=== PATIENT | female | born 1960 | race Hispanic/Latino ===

== ENCOUNTER 2021-01-18 12:09 | Inpatient (IN) | payer MEDICARE, OTHER ==
[~2021-01-18] VITALS: Ht 175.3 cm; Wt 158.8 kg
[2021-01-18] MEDS ORDERED: RENA-VITE RX T1 EACH PO (12:35)
[2021-01-18] MEDS ORDERED: LASIX40 MG PO (12:35)
[2021-01-18] MEDS ORDERED: METAMUCIL FIBE3.4 GM PO (12:35)
[2021-01-18] MEDS ORDERED: FERROUS SULFAT325 M1 PO (12:35)
[2021-01-18 13:38] LABS: BASOPHILS % 0.4 % (0.0-1.0); EOSINOPHILS # (AUTO) 0.1 (0.0-0.4); EOSINOPHILS % 2.3 % (0.0-6.0); HEMATOCRIT 27.8 % (34.2-44.1); HEMOGLOBIN 9.2 g/dL (12.0-16.0); LYMPHOCYTES # (AUTO) 0.6 (1.0-3.2); LYMPHOCYTES % 21.7 % (18.0-39.1); MEAN CORPUSCULAR HEMOGLOBIN 31.2 pg (28-32); MEAN CORPUSCULAR HGB CONC 33.1 g/dL (31-35); MEAN CORPUSCULAR VOLUME 94.2 fL (81-99); MONOCYTES # (AUTO) 0.2 (0.2-0.8); NEUTROPHILS # (AUTO) 1.8 (2.1-6.9); NEUTROPHILS % 68.2 % (38.7-80.0); PLATELET COUNT 104 x10e3/uL (140-360); RED BLOOD COUNT 2.95 x10e6/uL (3.6-5.1); RED CELL DISTRIBUTION WIDTH 14.4 % (11.7-14.4)
[2021-01-18 14:04] LABS: INR 0.95; PROTHROMBIN TIME 13.3 seconds (11.9-14.5)
[2021-01-18 14:05] LABS: PARTIAL THROMBOPLASTIN TIME 38.8 seconds (23.8-35.5)
[2021-01-18 14:12] LABS: ALBUMIN 2.7 g/dL (3.5-5.0); ALBUMIN/GLOBULIN RATIO 0.6 (0.8-2.0); ANION GAP 14.3 mmol/L (8-16); CALCIUM 7.4 mg/dL (8.4-10.2); CREATININE, SERUM 3.53 mg/dL (0.57-1.11); MAGNESIUM 2.2 MG/DL (1.3-2.1); POTASSIUM 4.3 mmol/L (3.5-5.1)
[2021-01-18] MEDS ORDERED: VANCOMYCIN 1GM/NS 250 ML 250 ML IV ONE (14:15)
[2021-01-18] MEDS ORDERED: PIPERACILLIN/TAZO 2.25 GM 50 ML IV SCH (14:15)
[2021-01-18 14:21] LABS: CREATINE KINASE MB 0.3 ng/mL (0-5.0)
[2021-01-18] MEDS ORDERED: SODIUM CHLORIDE 0.9% 500ML 500 ML IV ONE (14:30)
[2021-01-18] MEDS: PIPERACILLIN/TAZOBACTAM 2.25 GM in SODIUM CHLORIDE 0.9% 50ML 50 ML IV SCH ×2 (14:41→23:00)
[2021-01-18] MEDS ORDERED: ONDANSETRON HCL INJ 2MG/ML 2ML 2 MG/ML VIAL IV PRN ×2 (15:00→18:30)
[2021-01-18] MEDS ORDERED: DEXTROSE 50% SYRINGE 50 ML IV PRN (15:00)
[2021-01-18] MEDS ORDERED: MORPHINE SULFATE INJ 4 MG/ML INJ 1ML IV PRN (15:00)
[2021-01-18] MEDS: INSULIN LISPRO 100 UNIT/1 ML 3ML VIAL SQ SCH ×2 (16:56→21:00)
[2021-01-18] MEDS ORDERED: HYDRALAZINE HCL 20 MG/ML VIAL IV PRN (18:30)
[2021-01-18] MEDS ORDERED: ACETAMINOPHEN/CODEINE 300MG - 30MG TAB PO PRN (18:30)
[2021-01-18 22:00] VITALS: BP 128/66
[2021-01-18 22:51] VITALS: BP 128/66
[2021-01-18] MEDS: MELATONIN 5 MG TABLET PO SCH (23:00)
[2021-01-18] MEDS ORDERED: PIPERACILLIN/TAZOBACTAM SOD 2.25 GM VIAL ONE (23:33)
[2021-01-18] MEDS: ACETAMINOPHEN 325 MG TAB PO PRN (23:35)
[2021-01-18] MEDS ORDERED: SODIUM CHLORIDE 0.9% 100 ML ONE (23:35)
[2021-01-19] VITALS (9 sets, daily range): BP systolic 93–156; BP diastolic 38–57
[2021-01-19] MEDS: MELATONIN 5 MG TABLET PO SCH
[2021-01-19] MEDS: HEPARIN SOD (PORCINE) 5,000 UNIT/ML VIAL SC SCH
[2021-01-19] MEDS: PIPERACILLIN/TAZOBACTAM 2.25 GM in SODIUM CHLORIDE 0.9% 50ML 50 ML IV SCH ×2 (00:30→09:00)
[2021-01-19 05:45] LABS: ALBUMIN 2.5 g/dL (3.5-5.0); ALBUMIN/GLOBULIN RATIO 0.6 (0.8-2.0); ANION GAP 15.2 mmol/L (8-16); CALCIUM 7.3 mg/dL (8.4-10.2); CREATININE, SERUM 3.56 mg/dL (0.57-1.11); POTASSIUM 4.2 mmol/L (3.5-5.1)
[2021-01-19 06:55] LABS: BASOPHILS % 0.5 % (0.0-1.0); EOSINOPHILS # (AUTO) 0.1 (0.0-0.4); EOSINOPHILS % 2.5 % (0.0-6.0); HEMATOCRIT 25.8 % (34.2-44.1); HEMOGLOBIN 8.3 g/dL (12.0-16.0); LYMPHOCYTES # (AUTO) 0.5 (1.0-3.2); LYMPHOCYTES % 23.2 % (18.0-39.1); MEAN CORPUSCULAR HEMOGLOBIN 30.6 pg (28-32); MEAN CORPUSCULAR HGB CONC 32.2 g/dL (31-35); MEAN CORPUSCULAR VOLUME 95.2 fL (81-99); MONOCYTES # (AUTO) 0.1 (0.2-0.8); MONOCYTES % 6.9 % (4.4-11.3); NEUTROPHILS # (AUTO) 1.4 (2.1-6.9); NEUTROPHILS % 66.4 % (38.7-80.0); PLATELET COUNT 86 x10e3/uL (140-360); RED BLOOD COUNT 2.71 x10e6/uL (3.6-5.1); RED CELL DISTRIBUTION WIDTH 14.4 % (11.7-14.4)
[2021-01-19] MEDS: INSULIN LISPRO 100 UNIT/1 ML 3ML VIAL SQ SCH ×4 (07:30→21:00)
[2021-01-19 08:22] LABS: EOSINOPHILS % (MANUAL) 2 % (0-7); LYMPHOCYTES % (MANUAL) 21 % (19-48); MONOCYTES % (MANUAL) 8 % (3.4-9.0); MYELOCYTES % (MANUAL) 1 % (0-0); NEUTROPHILS % (MANUAL) 68 % (40-74)
[2021-01-19 08:23] LABS: OVALOCYTES FEW; PLATELET ESTIMATE SLIGHTLY DECREASED; PLATELET MORPHOLOGY COMMENT NORMAL; RBC MORPHOLOGY COMMENT NORMAL
[2021-01-19] MEDS: FUROSEMIDE 40 MG TAB PO SCH (09:00)
[2021-01-19] MEDS: POLYETHYLENE GLYCOL 3350 17 GM PACK PO SCH (09:00)
[2021-01-19] MEDS ORDERED: SODIUM HYPOCHLORITE 0.25% 480 ML SOLN IR ONE (10:15)
[2021-01-19] MEDS ORDERED: ALBUTEROL SULFATE HFA 8GM INHALATION AEROSOL INH PRN (18:00)
[2021-01-19] MEDS: ACETAMINOPHEN 325 MG TAB PO PRN (22:25)
[2021-01-20] VITALS (9 sets, daily range): BP systolic 92–125; BP diastolic 52–61
[2021-01-20] MEDS: ACETAMINOPHEN 325 MG TAB PO PRN ×3 (03:30→21:30)
[2021-01-20 04:46] LABS: BASOPHILS % 0.5 % (0.0-1.0); EOSINOPHILS # (AUTO) 0.1 (0.0-0.4); EOSINOPHILS % 3.2 % (0.0-6.0); HEMATOCRIT 25.8 % (34.2-44.1); HEMOGLOBIN 8.4 g/dL (12.0-16.0); LYMPHOCYTES # (AUTO) 0.4 (1.0-3.2); LYMPHOCYTES % 17.7 % (18.0-39.1); MEAN CORPUSCULAR HEMOGLOBIN 31.2 pg (28-32); MEAN CORPUSCULAR HGB CONC 32.6 g/dL (31-35); MEAN CORPUSCULAR VOLUME 95.9 fL (81-99); MONOCYTES # (AUTO) 0.2 (0.2-0.8); MONOCYTES % 9.1 % (4.4-11.3); NEUTROPHILS # (AUTO) 1.5 (2.1-6.9); PLATELET COUNT 94 x10e3/uL (140-360); RED BLOOD COUNT 2.69 x10e6/uL (3.6-5.1); RED CELL DISTRIBUTION WIDTH 14.6 % (11.7-14.4)
[2021-01-20 05:05] LABS: CALCIUM 7.3 mg/dL (8.4-10.2); CREATININE, SERUM 2.51 mg/dL (0.57-1.11)
[2021-01-20] MEDS: INSULIN LISPRO 100 UNIT/1 ML 3ML VIAL SQ SCH ×4 (07:30→20:24)
[2021-01-20] MEDS: CHOLECALCIFEROL 400 UNIT TAB PO SCH (08:40)
[2021-01-20] MEDS: ZINC SULFATE 220 MG CAP PO SCH (08:40)
[2021-01-20] MEDS: POLYETHYLENE GLYCOL 3350 17 GM PACK PO SCH (08:40)
[2021-01-20] MEDS: PIPERACILLIN/TAZOBACTAM 2.25 GM in SODIUM CHLORIDE 0.9% 50ML 50 ML IV SCH ×2 (08:40→20:23)
[2021-01-20] MEDS: FUROSEMIDE 40 MG TAB PO SCH (08:40)
[2021-01-20] MEDS: ASCORBIC ACID 500 MG TAB PO SCH ×2 (08:40→16:17)
[2021-01-20] MEDS: HEPARIN SOD (PORCINE) 5,000 UNIT/ML VIAL SC SCH ×2 (08:46→20:24)
[2021-01-20] MEDS ORDERED: BAMLANIVIMAB 700 MG/20 ML VIAL IV ONE (13:15)
[2021-01-20] MEDS ORDERED: ETESEVIMAB IV ONE (14:15)
[2021-01-20] MEDS ORDERED: SODIUM CHLORIDE 0.9% IV ONE (14:15)
[2021-01-20] MEDS ORDERED: BAMLANIVIMAB IV ONE (14:15)
[2021-01-20] MEDS: MELATONIN 5 MG TABLET PO SCH (20:24)
[2021-01-21 00:05] VITALS: BP 146/58
[2021-01-21] MEDS: ACETAMINOPHEN 325 MG TAB PO PRN (04:12)
[2021-01-21 04:13] VITALS: BP 125/55
[2021-01-21] MEDS ORDERED: MEROPENEM 500MG/ NS 50ML 50 ML IV SCH (06:45)
[2021-01-21] MEDS: INSULIN LISPRO 100 UNIT/1 ML 3ML VIAL SQ SCH ×3 (07:30→16:30)
[2021-01-21 08:00] VITALS: BP 132/77
[2021-01-21] MEDS ORDERED: CHOLESTYRAMINE 4 GM PACKET PO PRN (08:30)
[2021-01-21] MEDS ORDERED: CHOLESTYRAMINE 4 GM PACKET PO SCH (09:00)
[2021-01-21] MEDS: HEPARIN SOD (PORCINE) 5,000 UNIT/ML VIAL SC SCH (09:00)
[2021-01-21] MEDS: POLYETHYLENE GLYCOL 3350 17 GM PACK PO SCH (09:00)
[2021-01-21] MEDS ORDERED: FOLIC ACID/CYANOCOB/PYRIDOXINE TAB PO SCH (09:00)
[2021-01-21] MEDS ORDERED: SODIUM CHLORIDE 0.9% 250ML 500 ML IV PRN (09:45)
[2021-01-21] MEDS ORDERED: ALBUMIN 25% 12.5GM 0.25 GM/ML BTL IV PRN (09:45)
[2021-01-21] MEDS ORDERED: SODIUM CHLORIDE 0.9% 1000ML 2,000 ML IV PRN (09:45)
[2021-01-21 12:00] VITALS: BP 147/93
[2021-01-21] MEDS ORDERED: SODIUM CHLORIDE 0.9% 250ML 250 ML ONE (14:27)
[2021-01-21] MEDS ORDERED: LIDOCAINE HCL 1% LOCAL INJ 20 ML VIAL ONE (14:27)
[2021-01-21] MEDS: ZINC SULFATE 220 MG CAP PO SCH (14:39)
[2021-01-21] MEDS: CHOLECALCIFEROL 400 UNIT TAB PO SCH (14:39)
[2021-01-21] MEDS: FUROSEMIDE 40 MG TAB PO SCH (14:39)
[2021-01-21] MEDS ORDERED: MIDAZOLAM HCL 2 MG/2 ML VIAL ONE (15:14)
[2021-01-21] MEDS ORDERED: FENTANYL CITRATE/PF 100MCG/2 ML INJ ONE (15:14)
[2021-01-21 16:00] VITALS: BP 118/67
[2021-01-21] MEDS ORDERED: MEROPENEM 1GM 100 ML IV SCH ×2 (16:00→21:00)
[2021-01-22] MEDS ORDERED: ASCORBIC ACID 500 MG TAB PO SCH (09:00)
== END 2021-01-21 18:36 | disposition home health service (06) | DRG 622 ==
LOC: ER 12:28 → ERHOLD 14:58 → IMCU 22:00
PROVIDERS: ADMIT Internal Medicine; ATTEND Internal Medicine
PROC: 0JB90ZZ Excision of Buttock Subcutaneous Tissue and Fascia, Open Approach (ICD-10-PCS; principal; 2021-01-19)
PROC: 0JH63XZ Insertion of Tunneled Vascular Access Device into Chest Subcutaneous Tissue and Fascia, Percutaneous Approach (ICD-10-PCS; 2021-01-21)
PROC: 02HV33Z Insertion of Infusion Device into Superior Vena Cava, Percutaneous Approach (ICD-10-PCS; 2021-01-21)
DX: E11.69 Type 2 diabetes mellitus with other specified complication (principal); L89.314 Pressure ulcer of right buttock, stage 4; U07.1 COVID-19; J12.82 Pneumonia due to coronavirus disease 2019; Z68.43 Body mass index [BMI] 50.0-59.9, adult; I12.0 Hypertensive chronic kidney disease with stage 5 chronic kidney disease or end stage renal disease; D61.818 Other pancytopenia; K52.1 Toxic gastroenteritis and colitis; M86.8X7 Other osteomyelitis, ankle and foot; N18.6 End stage renal disease; E11.22 Type 2 diabetes mellitus with diabetic chronic kidney disease; E66.01 Morbid (severe) obesity due to excess calories; Z99.2 Dependence on renal dialysis; Z79.899 Other long term (current) drug therapy; D69.6 Thrombocytopenia, unspecified; T36.8X5A Adverse effect of other systemic antibiotics, initial encounter; I48.91 Unspecified atrial fibrillation; Z79.01 Long term (current) use of anticoagulants; G40.909 Epilepsy, unspecified, not intractable, without status epilepticus
CPT/HCPCS: 36415; 36558; 71045; 74470; 76937; 77001; 80048; 80053; 82550; 82553; 82948; 83605; 83735; 84484; 85025; 85610; 85730; 87040; 87071; 87186; 87205; 90962; 99251; 99285; J1644; J2001; J2250; J2543; J3010; J3370; J7030; J7040; J7050; U0002

== ENCOUNTER 2021-03-08 17:33 | Inpatient (IN) | payer MEDICARE, OTHER ==
[~2021-03-08] VITALS: Ht 175.3 cm; Wt 158.8 kg
[~2021-03-08 17:33] MED LIST: FERROUS SULFAT325 M1 PO; LASIX40 MG PO; METAMUCIL FIBE3.4 GM PO; RENA-VITE RX T1 EACH PO
[2021-03-08 18:07] LABS: BASOPHILS % 0.1 % (0.0-1.0); EOSINOPHILS % 0.4 % (0.0-6.0); HEMATOCRIT 27.8 % (34.2-44.1); HEMOGLOBIN 9.1 g/dL (12.0-16.0); LYMPHOCYTES # (AUTO) 0.4 (1.0-3.2); MEAN CORPUSCULAR HEMOGLOBIN 32.3 pg (28-32); MEAN CORPUSCULAR HGB CONC 32.7 g/dL (31-35); MEAN CORPUSCULAR VOLUME 98.6 fL (81-99); MONOCYTES # (AUTO) 0.3 (0.2-0.8); MONOCYTES % 4.5 % (4.4-11.3); NEUTROPHILS # (AUTO) 6.6 (2.1-6.9); NEUTROPHILS % 89.7 % (38.7-80.0); PLATELET COUNT 100 x10e3/uL (140-360); RED BLOOD COUNT 2.82 x10e6/uL (3.6-5.1); RED CELL DISTRIBUTION WIDTH 16.2 % (11.7-14.4)
[2021-03-08 18:13] LABS: CLARITY,URINE SL CLOUDY (CLEAR); COLOR,URINE BROWN (YELLOW); KETONES,URINE TRACE (NEGATIVE); LEUKOCYTE ESTERASE ,URINE NEGATIVE (NEGATIVE); NITRITE,URINE NEGATIVE (NEGATIVE); PROTEIN,URINE DIPSTICK >=300 (NEGATIVE); URINE UROBILINOGEN 1 mg/dL (0.2 - 1)
[2021-03-08 18:24] LABS: ALBUMIN/GLOBULIN RATIO 0.7 (0.8-2.0); ANION GAP 14.5 mmol/L (8-16); CALCIUM 8.4 mg/dL (8.4-10.2); CREATININE, SERUM 3.44 mg/dL (0.57-1.11); POTASSIUM 3.5 mmol/L (3.5-5.1)
[2021-03-08 18:27] LABS: BACTERIA,URINE MANY /HPF; EPITHELIAL CELLS,URINE MANY /LPF; WBC,URINE (MAN) 0-5 /HPF (0-5)
[2021-03-08] MEDS ORDERED: VANCOMYCIN 1GM/NS 250 ML 250 ML IV ONE (18:30)
[2021-03-08] MEDS: PIPERACILLIN/TAZOBACTAM 2.25 GM in SODIUM CHLORIDE 0.9% 50ML 50 ML IV SCH (19:15)
[2021-03-08] MEDS ORDERED: DEXTROSE 50% SYRINGE 50 ML IV PRN (20:00)
[2021-03-08] MEDS ORDERED: MORPHINE SULFATE INJ 2 MG/ML SYR IV PRN (20:00)
[2021-03-08] MEDS ORDERED: SODIUM CHLORIDE FLUSH 10 ML SYR INJ PRN (20:00)
[2021-03-08] MEDS ORDERED: ACETAMINOPHEN 325 MG TAB PO PRN ×2 (20:00)
[2021-03-08] MEDS: INSULIN REGULAR, HUMAN 100 UNIT/1 ML 3ML VIAL SQ SCH (21:00)
[2021-03-08 21:44] VITALS: BP 139/72
[2021-03-08 22:18] VITALS: BP 139/72
[2021-03-08] MEDS ORDERED: LANTUS 3ML100 UNITS/ SC (22:32)
[2021-03-08] MEDS ORDERED: LEVEMIR FL100 UNIT/1 SC (22:32)
[2021-03-08] MEDS ORDERED: CARVEDILOL25 MG (22:32)
[2021-03-08 22:33] VITALS: BP 139/72
[2021-03-09] VITALS (7 sets, daily range): BP systolic 110–134; BP diastolic 48–71
[2021-03-09 04:13] LABS: BASOPHILS % 0.3 % (0.0-1.0); EOSINOPHILS % 0.3 % (0.0-6.0); HEMATOCRIT 25.6 % (34.2-44.1); HEMOGLOBIN 8.5 g/dL (12.0-16.0); LYMPHOCYTES # (AUTO) 0.4 (1.0-3.2); LYMPHOCYTES % 6.8 % (18.0-39.1); MEAN CORPUSCULAR HEMOGLOBIN 32.4 pg (28-32); MEAN CORPUSCULAR HGB CONC 33.2 g/dL (31-35); MEAN CORPUSCULAR VOLUME 97.7 fL (81-99); MONOCYTES # (AUTO) 0.3 (0.2-0.8); MONOCYTES % 4.8 % (4.4-11.3); NEUTROPHILS # (AUTO) 5.1 (2.1-6.9); NEUTROPHILS % 87.3 % (38.7-80.0); PLATELET COUNT 86 x10e3/uL (140-360); RED BLOOD COUNT 2.62 x10e6/uL (3.6-5.1); RED CELL DISTRIBUTION WIDTH 16.2 % (11.7-14.4)
[2021-03-09 04:32] LABS: ALBUMIN 2.7 g/dL (3.5-5.0); ALBUMIN/GLOBULIN RATIO 0.7 (0.8-2.0); ANION GAP 16.5 mmol/L (8-16); CALCIUM 8.4 mg/dL (8.4-10.2); CREATININE, SERUM 3.52 mg/dL (0.57-1.11); POTASSIUM 3.5 mmol/L (3.5-5.1)
[2021-03-09] MEDS: PIPERACILLIN/TAZOBACTAM 2.25 GM in SODIUM CHLORIDE 0.9% 50ML 50 ML IV SCH ×2 (06:30→17:44)
[2021-03-09] MEDS ORDERED: SODIUM CHLORIDE 0.9% 250ML 250 ML ONE (06:30)
[2021-03-09] MEDS: INSULIN REGULAR, HUMAN 100 UNIT/1 ML 3ML VIAL SQ SCH ×4 (08:45→21:00)
[2021-03-09] MEDS ORDERED: SODIUM CHLORIDE 0.9% 1000ML 2,000 ML ONE (10:18)
[2021-03-09] MEDS ORDERED: ALBUMIN 25% 12.5GM 0.25 GM/ML BTL IV PRN (11:15)
[2021-03-09] MEDS ORDERED: SODIUM CHLORIDE 0.9% 250ML 500 ML IV PRN (11:15)
[2021-03-09] MEDS ORDERED: SODIUM CHLORIDE 0.9% 1000ML 2,000 ML IV PRN (11:15)
[2021-03-09] MEDS: SEVELAMER CARBONATE 800 MG TAB PO SCH ×2 (12:00→17:37)
[2021-03-09] MEDS: MORPHINE SULFATE INJ 4 MG/ML INJ 1ML IV PRN (13:10)
[2021-03-09] MEDS ORDERED: HYDRALAZINE HCL 20 MG/ML VIAL IV PRN (17:30)
[2021-03-10] VITALS (7 sets, daily range): BP systolic 106–134; BP diastolic 50–67
[2021-03-10] MEDS: PIPERACILLIN/TAZOBACTAM 2.25 GM in SODIUM CHLORIDE 0.9% 50ML 50 ML IV SCH ×2 (06:30→17:50)
[2021-03-10] MEDS: INSULIN REGULAR, HUMAN 100 UNIT/1 ML 3ML VIAL SQ SCH ×4 (07:30→21:00)
[2021-03-10] MEDS: FERROUS SULFATE 325 MG TAB PO SCH (08:42)
[2021-03-10] MEDS: SEVELAMER CARBONATE 800 MG TAB PO SCH ×3 (08:42→17:02)
[2021-03-10] MEDS: PSYLLIUM 6GM PACKET PO SCH (08:45)
[2021-03-10] MEDS: FAMOTIDINE 20 MG/2 ML VIAL IV SCH ×2 (08:52→17:50)
[2021-03-10] MEDS: MORPHINE SULFATE INJ 4 MG/ML INJ 1ML IV PRN (12:55)
[2021-03-10] MEDS ORDERED: SODIUM HYPOCHLORITE 0.25% 480 ML SOLN IR ONE (18:15)
[2021-03-11] VITALS (8 sets, daily range): BP systolic 121–147; BP diastolic 49–70
[2021-03-11] MEDS: MORPHINE SULFATE INJ 4 MG/ML INJ 1ML IV PRN ×2 (00:30→17:17)
[2021-03-11] MEDS: PIPERACILLIN/TAZOBACTAM 2.25 GM in SODIUM CHLORIDE 0.9% 50ML 50 ML IV SCH ×2 (06:32→18:30)
[2021-03-11] MEDS: INSULIN REGULAR, HUMAN 100 UNIT/1 ML 3ML VIAL SQ SCH ×5 (07:30→21:00)
[2021-03-11] MEDS: SEVELAMER CARBONATE 800 MG TAB PO SCH ×3 (08:00→16:44)
[2021-03-11] MEDS: PSYLLIUM 6GM PACKET PO SCH (09:00)
[2021-03-11] MEDS: COLLAGENASE OINTMENT 30 GM TUBE TP SCH (09:00)
[2021-03-11] MEDS: FAMOTIDINE 20 MG/2 ML VIAL IV SCH ×2 (09:00→16:44)
[2021-03-11] MEDS: FERROUS SULFATE 325 MG TAB PO SCH (09:00)
[2021-03-11] MEDS: ACETAMINOPHEN 325 MG TAB PO PRN (17:17)
[2021-03-12] VITALS (8 sets, daily range): BP systolic 104–144; BP diastolic 45–70
[2021-03-12] MEDS: MORPHINE SULFATE INJ 4 MG/ML INJ 1ML IV PRN ×3 (00:26→22:12)
[2021-03-12 05:38] LABS: BASOPHILS % 0.7 % (0.0-1.0); EOSINOPHILS # (AUTO) 0.2 (0.0-0.4); HEMATOCRIT 24.6 % (34.2-44.1); LYMPHOCYTES # (AUTO) 0.8 (1.0-3.2); LYMPHOCYTES % 13.1 % (18.0-39.1); MEAN CORPUSCULAR HEMOGLOBIN 31.9 pg (28-32); MEAN CORPUSCULAR HGB CONC 32.5 g/dL (31-35); MONOCYTES # (AUTO) 0.6 (0.2-0.8); MONOCYTES % 10.1 % (4.4-11.3); NEUTROPHILS % 70.4 % (38.7-80.0); PLATELET COUNT 118 x10e3/uL (140-360); RED BLOOD COUNT 2.51 x10e6/uL (3.6-5.1); RED CELL DISTRIBUTION WIDTH 15.9 % (11.7-14.4)
[2021-03-12 06:29] LABS: ALBUMIN 2.2 g/dL (3.5-5.0); ALBUMIN/GLOBULIN RATIO 0.5 (0.8-2.0); ANION GAP 15.6 mmol/L (8-16); CALCIUM 7.7 mg/dL (8.4-10.2); CREATININE, SERUM 3.77 mg/dL (0.57-1.11); PHOSPHORUS 3.5 MG/DL (2.3-4.7); POTASSIUM 3.6 mmol/L (3.5-5.1)
[2021-03-12] MEDS: PIPERACILLIN/TAZOBACTAM 2.25 GM in SODIUM CHLORIDE 0.9% 50ML 50 ML IV SCH ×2 (06:32→17:23)
[2021-03-12 06:52] LABS: THYROID STIMULATING HORMONE 2.319 uIU/mL (0.350-4.940)
[2021-03-12] MEDS: INSULIN REGULAR, HUMAN 100 UNIT/1 ML 3ML VIAL SQ SCH ×4 (07:30→21:00)
[2021-03-12] MEDS: SEVELAMER CARBONATE 800 MG TAB PO SCH ×3 (08:00→16:52)
[2021-03-12] MEDS: FERROUS SULFATE 325 MG TAB PO SCH (08:53)
[2021-03-12] MEDS: PSYLLIUM 6GM PACKET PO SCH (08:53)
[2021-03-12] MEDS: FAMOTIDINE 20 MG/2 ML VIAL IV SCH ×2 (08:53→16:52)
[2021-03-12] MEDS: SODIUM HYPOCHLORITE 0.25% 480 ML SOLN TOP SCH (09:00)
[2021-03-12] MEDS: COLLAGENASE OINTMENT 30 GM TUBE TP SCH (09:00)
[2021-03-12] MEDS: ONDANSETRON HCL INJ 2MG/ML 2ML 2 MG/ML VIAL IV PRN (22:12)
[2021-03-13] VITALS (8 sets, daily range): BP systolic 101–137; BP diastolic 54–61
[2021-03-13] MEDS: PIPERACILLIN/TAZOBACTAM 2.25 GM in SODIUM CHLORIDE 0.9% 50ML 50 ML IV SCH ×2 (05:22→17:14)
[2021-03-13] MEDS: INSULIN REGULAR, HUMAN 100 UNIT/1 ML 3ML VIAL SQ SCH ×4 (08:22→21:00)
[2021-03-13] MEDS: PSYLLIUM 6GM PACKET PO SCH (09:00)
[2021-03-13] MEDS: MORPHINE SULFATE INJ 4 MG/ML INJ 1ML IV PRN ×2 (09:30→22:25)
[2021-03-13] MEDS: FAMOTIDINE 20 MG/2 ML VIAL IV SCH ×2 (09:30→17:11)
[2021-03-13] MEDS: ONDANSETRON HCL INJ 2MG/ML 2ML 2 MG/ML VIAL IV PRN (09:30)
[2021-03-13] MEDS: SODIUM HYPOCHLORITE 0.25% 480 ML SOLN TOP SCH (09:41)
[2021-03-13] MEDS: COLLAGENASE OINTMENT 30 GM TUBE TP SCH (09:41)
[2021-03-13] MEDS: FERROUS SULFATE 325 MG TAB PO SCH (09:46)
[2021-03-13] MEDS: SEVELAMER CARBONATE 800 MG TAB PO SCH ×3 (09:46→17:14)
[2021-03-14] VITALS (9 sets, daily range): BP systolic 97–128; BP diastolic 44–71
[2021-03-14] MEDS: PIPERACILLIN/TAZOBACTAM 2.25 GM in SODIUM CHLORIDE 0.9% 50ML 50 ML IV SCH ×2 (06:10→17:19)
[2021-03-14] MEDS: INSULIN REGULAR, HUMAN 100 UNIT/1 ML 3ML VIAL SQ SCH ×4 (07:30→21:00)
[2021-03-14] MEDS: PSYLLIUM 6GM PACKET PO SCH (08:58)
[2021-03-14] MEDS: FAMOTIDINE 20 MG/2 ML VIAL IV SCH ×2 (09:02→17:19)
[2021-03-14] MEDS: SODIUM HYPOCHLORITE 0.25% 480 ML SOLN TOP SCH (09:10)
[2021-03-14] MEDS: FERROUS SULFATE 325 MG TAB PO SCH (09:10)
[2021-03-14] MEDS: SEVELAMER CARBONATE 800 MG TAB PO SCH ×3 (09:10→17:19)
[2021-03-14] MEDS: COLLAGENASE OINTMENT 30 GM TUBE TP SCH (09:10)
[2021-03-14] MEDS: MORPHINE SULFATE INJ 4 MG/ML INJ 1ML IV PRN (17:28)
[2021-03-15] VITALS (9 sets, daily range): BP systolic 108–124; BP diastolic 54–75
[2021-03-15 05:30] LABS: BASOPHILS % 0.6 % (0.0-1.0); EOSINOPHILS # (AUTO) 0.2 (0.0-0.4); EOSINOPHILS % 3.2 % (0.0-6.0); HEMATOCRIT 26.4 % (34.2-44.1); HEMOGLOBIN 8.5 g/dL (12.0-16.0); LYMPHOCYTES # (AUTO) 0.8 (1.0-3.2); LYMPHOCYTES % 15.7 % (18.0-39.1); MEAN CORPUSCULAR HEMOGLOBIN 31.4 pg (28-32); MEAN CORPUSCULAR HGB CONC 32.2 g/dL (31-35); MEAN CORPUSCULAR VOLUME 97.4 fL (81-99); MONOCYTES # (AUTO) 0.5 (0.2-0.8); MONOCYTES % 9.4 % (4.4-11.3); NEUTROPHILS # (AUTO) 3.5 (2.1-6.9); NEUTROPHILS % 70.3 % (38.7-80.0); PLATELET COUNT 158 x10e3/uL (140-360); RED BLOOD COUNT 2.71 x10e6/uL (3.6-5.1); RED CELL DISTRIBUTION WIDTH 16.1 % (11.7-14.4)
[2021-03-15] MEDS: PIPERACILLIN/TAZOBACTAM 2.25 GM in SODIUM CHLORIDE 0.9% 50ML 50 ML IV SCH ×2 (05:54→16:41)
[2021-03-15 06:01] LABS: ANION GAP 17.2 mmol/L (8-16); CALCIUM 7.9 mg/dL (8.4-10.2); CREATININE, SERUM 5.24 mg/dL (0.57-1.11); POTASSIUM 4.2 mmol/L (3.5-5.1)
[2021-03-15] MEDS: INSULIN REGULAR, HUMAN 100 UNIT/1 ML 3ML VIAL SQ SCH ×4 (07:30→21:00)
[2021-03-15] MEDS: FAMOTIDINE 20 MG/2 ML VIAL IV SCH ×2 (08:31→16:40)
[2021-03-15] MEDS: PSYLLIUM 6GM PACKET PO SCH (08:31)
[2021-03-15] MEDS: FERROUS SULFATE 325 MG TAB PO SCH (08:31)
[2021-03-15] MEDS: SEVELAMER CARBONATE 800 MG TAB PO SCH ×3 (08:31→16:40)
[2021-03-15] MEDS ORDERED: EPOETIN ALFA-EPBX 10,000 UNIT/ML VIAL SC ONE (09:00)
[2021-03-15] MEDS: MORPHINE SULFATE INJ 4 MG/ML INJ 1ML IV PRN ×2 (10:25→16:35)
[2021-03-15] MEDS: COLLAGENASE OINTMENT 30 GM TUBE TP SCH (15:38)
[2021-03-15] MEDS: SODIUM HYPOCHLORITE 0.25% 480 ML SOLN TOP SCH (15:38)
[2021-03-15] MEDS ORDERED: SODIUM CHLORIDE 0.9% 250ML 250 ML ONE (15:45)
[2021-03-16] VITALS (7 sets, daily range): BP systolic 105–132; BP diastolic 54–68
[2021-03-16] MEDS: PIPERACILLIN/TAZOBACTAM 2.25 GM in SODIUM CHLORIDE 0.9% 50ML 50 ML IV SCH ×2 (06:24→18:21)
[2021-03-16] MEDS: INSULIN REGULAR, HUMAN 100 UNIT/1 ML 3ML VIAL SQ SCH ×4 (07:30→21:00)
[2021-03-16] MEDS: FERROUS SULFATE 325 MG TAB PO SCH ×2 (08:48→08:58)
[2021-03-16] MEDS: COLLAGENASE OINTMENT 30 GM TUBE TP SCH (08:48)
[2021-03-16] MEDS: SEVELAMER CARBONATE 800 MG TAB PO SCH ×3 (08:48→17:00)
[2021-03-16] MEDS: PSYLLIUM 6GM PACKET PO SCH (08:48)
[2021-03-16] MEDS: SODIUM HYPOCHLORITE 0.25% 480 ML SOLN TOP SCH (08:48)
[2021-03-16] MEDS: FAMOTIDINE 20 MG/2 ML VIAL IV SCH ×2 (08:48→17:00)
[2021-03-16 09:31] LABS: BASOPHILS % 0.8 % (0.0-1.0); EOSINOPHILS # (AUTO) 0.2 (0.0-0.4); EOSINOPHILS % 3.1 % (0.0-6.0); HEMATOCRIT 30.7 % (34.2-44.1); HEMOGLOBIN 9.5 g/dL (12.0-16.0); LYMPHOCYTES # (AUTO) 0.8 (1.0-3.2); LYMPHOCYTES % 15.9 % (18.0-39.1); MEAN CORPUSCULAR HEMOGLOBIN 31.4 pg (28-32); MEAN CORPUSCULAR HGB CONC 30.9 g/dL (31-35); MEAN CORPUSCULAR VOLUME 101.3 fL (81-99); MONOCYTES # (AUTO) 0.4 (0.2-0.8); NEUTROPHILS # (AUTO) 3.4 (2.1-6.9); NEUTROPHILS % 70.8 % (38.7-80.0); PLATELET COUNT 169 x10e3/uL (140-360); RED BLOOD COUNT 3.03 x10e6/uL (3.6-5.1); RED CELL DISTRIBUTION WIDTH 16.3 % (11.7-14.4)
[2021-03-16 09:59] LABS: ANION GAP 20.4 mmol/L (8-16); CALCIUM 8.4 mg/dL (8.4-10.2); CREATININE, SERUM 6.37 mg/dL (0.57-1.11); POTASSIUM 4.4 mmol/L (3.5-5.1)
[2021-03-16] MEDS ORDERED: EPOETIN ALFA-EPBX 10,000 UNIT/ML VIAL SC ONE (10:30)
[2021-03-16] MEDS ORDERED: EPOETIN ALFA-EPBX 10,000 UNIT/ML VIAL SC SCH ×2 (10:30→11:15)
[2021-03-16] MEDS: ACETAMINOPHEN 325 MG TAB PO PRN (15:19)
[2021-03-17 00:55] VITALS: BP 154/73
[2021-03-17 04:51] VITALS: BP 157/73
[2021-03-17] MEDS: PIPERACILLIN/TAZOBACTAM 2.25 GM in SODIUM CHLORIDE 0.9% 50ML 50 ML IV SCH ×2 (06:38→17:52)
[2021-03-17] MEDS: INSULIN REGULAR, HUMAN 100 UNIT/1 ML 3ML VIAL SQ SCH ×3 (07:30→16:30)
[2021-03-17 08:02] VITALS: BP 126/69
[2021-03-17 08:32] VITALS: BP 126/69
[2021-03-17] MEDS: FAMOTIDINE 20 MG/2 ML VIAL IV SCH ×2 (09:02→16:49)
[2021-03-17] MEDS: SEVELAMER CARBONATE 800 MG TAB PO SCH ×3 (09:02→16:49)
[2021-03-17] MEDS: COLLAGENASE OINTMENT 30 GM TUBE TP SCH (09:02)
[2021-03-17] MEDS: PSYLLIUM 6GM PACKET PO SCH (09:02)
[2021-03-17] MEDS: SODIUM HYPOCHLORITE 0.25% 480 ML SOLN TOP SCH (09:02)
[2021-03-17] MEDS: FERROUS SULFATE 325 MG TAB PO SCH (09:02)
[2021-03-17] MEDS: SENNA-S TABLET PO SCH ×2 (10:50→16:49)
[2021-03-17 12:00] VITALS: BP 129/70
[2021-03-17] MEDS: ACETAMINOPHEN 325 MG TAB PO PRN (12:04)
[2021-03-17 16:00] VITALS: BP 139/56
[2021-03-17] MEDS ORDERED: RENVELA800 MG PO (17:37)
[2021-03-17] MEDS ORDERED: TYLENOL # 31 EA PO (18:01)
[2021-03-17] MEDS ORDERED: DOXYCYCLINE HY100 MG PO (18:02)
== END 2021-03-17 19:04 | disposition home health service (06) | DRG 871 ==
LOC: ER 17:35 → ERHOLD 20:20 → MED/SURG2 21:33
PROVIDERS: ADMIT Internal Medicine; ATTEND Internal Medicine
PROC: 5A1D70Z Performance of Urinary Filtration, Intermittent, Less than 6 Hours Per Day (ICD-10-PCS; principal; 2021-03-09)
PROC: 5A1D70Z Performance of Urinary Filtration, Intermittent, Less than 6 Hours Per Day (ICD-10-PCS; 2021-03-11)
PROC: 5A1D70Z Performance of Urinary Filtration, Intermittent, Less than 6 Hours Per Day (ICD-10-PCS; 2021-03-13)
PROC: 5A1D70Z Performance of Urinary Filtration, Intermittent, Less than 6 Hours Per Day (ICD-10-PCS; 2021-03-16)
DX: A41.9 Sepsis, unspecified organism (principal); L89.314 Pressure ulcer of right buttock, stage 4; N18.6 End stage renal disease; I12.0 Hypertensive chronic kidney disease with stage 5 chronic kidney disease or end stage renal disease; Z68.43 Body mass index [BMI] 50.0-59.9, adult; N25.81 Secondary hyperparathyroidism of renal origin; M48.56XA Collapsed vertebra, not elsewhere classified, lumbar region, initial encounter for fracture; E11.22 Type 2 diabetes mellitus with diabetic chronic kidney disease; Z99.2 Dependence on renal dialysis; Z90.49 Acquired absence of other specified parts of digestive tract; Z87.442 Personal history of urinary calculi; R65.20 Severe sepsis without septic shock; E11.65 Type 2 diabetes mellitus with hyperglycemia; D63.1 Anemia in chronic kidney disease; D69.6 Thrombocytopenia, unspecified; E66.01 Morbid (severe) obesity due to excess calories; R19.7 Diarrhea, unspecified; M54.5 Low back pain; M25.551 Pain in right hip; M48.061 Spinal stenosis, lumbar region without neurogenic claudication; Z86.16 Personal history of COVID-19; Z20.822 Contact with and (suspected) exposure to COVID-19; Z79.4 Long term (current) use of insulin
CPT/HCPCS: 36415; 71045; 72131; 80048; 80053; 80061; 81001; 82948; 83036; 83605; 84100; 84443; 85025; 86704; 86705; 86706; 87040; 87340; 87350; 90962; 93005; 99251; 99284; J1817; J2270; J2405; J2543; J3370; J7030; J7050; U0002

== ENCOUNTER 2021-05-20 08:50 | Inpatient (IN) | payer MEDICARE, OTHER ==
[~2021-05-20] VITALS: Ht 175.3 cm; Wt 158.8 kg
[~2021-05-20 08:50] MED LIST changes: +CARVEDILOL25 MG; +DOXYCYCLINE HY100 MG PO; +LANTUS 3ML100 UNITS/ SC; +LEVEMIR FL100 UNIT/1 SC; +RENVELA800 MG PO; +TYLENOL # 31 EA PO
[2021-05-20 09:30] LABS: BASOPHILS % 0.7 % (0.0-1.0); EOSINOPHILS # (AUTO) 0.1 (0.0-0.4); HEMATOCRIT 32.4 % (34.2-44.1); HEMOGLOBIN 10.7 g/dL (12.0-16.0); LYMPHOCYTES # (AUTO) 0.7 (1.0-3.2); LYMPHOCYTES % 12.8 % (18.0-39.1); MEAN CORPUSCULAR HEMOGLOBIN 32.4 pg (28-32); MEAN CORPUSCULAR VOLUME 98.2 fL (81-99); MONOCYTES # (AUTO) 0.4 (0.2-0.8); MONOCYTES % 6.5 % (4.4-11.3); NEUTROPHILS # (AUTO) 4.2 (2.1-6.9); NEUTROPHILS % 77.6 % (38.7-80.0); PLATELET COUNT 105 x10e3/uL (140-360); RED CELL DISTRIBUTION WIDTH 14.3 % (11.7-14.4)
[2021-05-20] MEDS ORDERED: HYDRALAZINE HCL 20 MG/ML VIAL IV ONE (09:30)
[2021-05-20 09:54] LABS: ALBUMIN 3.7 g/dL (3.5-5.0); ALBUMIN/GLOBULIN RATIO 0.7 (0.8-2.0); ANION GAP 18.5 mmol/L (8-16); CALCIUM 9.4 mg/dL (8.4-10.2); CREATININE, SERUM 3.88 mg/dL (0.57-1.11); POTASSIUM 4.5 mmol/L (3.5-5.1)
[2021-05-20 10:14] LABS: CREATINE KINASE MB 1.3 ng/mL (0-5.0)
[2021-05-20] MEDS ORDERED: LABETALOL HCL 5 MG/ML 20ML VIAL IV STA (12:48)
[2021-05-20] MEDS ORDERED: HYDRALAZINE HCL 20 MG/ML VIAL ONE (13:07)
[2021-05-20] MEDS ORDERED: RENA-VITE RX T1 EACH PO (13:13)
[2021-05-20] MEDS ORDERED: [UNRECOGNIZED DRUG - OTHER] (13:13)
[2021-05-20] MEDS ORDERED: [UNRECOGNIZED DRUG - CODE] PO (13:13)
[2021-05-20] MEDS ORDERED: BACLOFEN10 MG PO (13:13)
[2021-05-20] MEDS ORDERED: CARVEDILOL12.5 MG PO (13:13)
[2021-05-20] MEDS ORDERED: FIBER (13:13)
[2021-05-20] MEDS ORDERED: PROTONIX20 MG PO (13:13)
[2021-05-20] MEDS ORDERED: LASIX40 MG PO (13:13)
[2021-05-20] MEDS ORDERED: LABETALOL HCL 5 MG/ML 20ML VIAL IV PRN (13:15)
[2021-05-20 15:14] VITALS: BP 135/81
[2021-05-20 15:25] VITALS: BP 135/81
[2021-05-20] MEDS ORDERED: SODIUM CHLORIDE 0.9% 1000ML 2,000 ML IV PRN (15:45)
[2021-05-20 16:54] VITALS: BP 174/90
[2021-05-20] MEDS ORDERED: DEXTROSE 50% SYRINGE 50 ML IV PRN (17:15)
[2021-05-20 18:39] LABS: CREATINE KINASE MB 1.4 ng/mL (0-5.0)
[2021-05-20] MEDS: DOXAZOSIN MESYLATE 2 MG TAB PO SCH (19:30)
[2021-05-20 19:59] VITALS: BP 148/90
[2021-05-20] MEDS ORDERED: LORAZEPAM INJ 2 MG/ML VIAL IV ONE (20:30)
[2021-05-20] MEDS: NIFEDIPINE CR 30 MG TAB PO SCH (20:58)
[2021-05-20 21:00] VITALS: BP 148/90
[2021-05-20] MEDS: INSULIN LISPRO 100 UNIT/1 ML 3ML VIAL SQ SCH (21:00)
[2021-05-21] VITALS (8 sets, daily range): BP systolic 78–176; BP diastolic 35–87
[2021-05-21 06:27] LABS: BASOPHILS % 0.4 % (0.0-1.0); EOSINOPHILS # (AUTO) 0.1 (0.0-0.4); EOSINOPHILS % 0.9 % (0.0-6.0); HEMOGLOBIN 9.7 g/dL (12.0-16.0); LYMPHOCYTES # (AUTO) 0.7 (1.0-3.2); LYMPHOCYTES % 13.4 % (18.0-39.1); MEAN CORPUSCULAR HEMOGLOBIN 32.7 pg (28-32); MEAN CORPUSCULAR HGB CONC 33.4 g/dL (31-35); MEAN CORPUSCULAR VOLUME 97.6 fL (81-99); MONOCYTES # (AUTO) 0.5 (0.2-0.8); MONOCYTES % 9.8 % (4.4-11.3); NEUTROPHILS # (AUTO) 4.2 (2.1-6.9); RED BLOOD COUNT 2.97 x10e6/uL (3.6-5.1); RED CELL DISTRIBUTION WIDTH 14.6 % (11.7-14.4)
[2021-05-21 06:42] LABS: PLATELET COUNT 76 x10e3/uL (140-360)
[2021-05-21 06:44] LABS: ALBUMIN 3.2 g/dL (3.5-5.0); ALBUMIN/GLOBULIN RATIO 0.7 (0.8-2.0); ANION GAP 17.2 mmol/L (8-16); CALCIUM 8.4 mg/dL (8.4-10.2); CREATININE, SERUM 2.74 mg/dL (0.57-1.11); POTASSIUM 4.2 mmol/L (3.5-5.1)
[2021-05-21] MEDS: PANTOPRAZOLE SOD 40 MG TABEC PO SCH (07:30)
[2021-05-21] MEDS: INSULIN LISPRO 100 UNIT/1 ML 3ML VIAL SQ SCH ×4 (07:30→21:50)
[2021-05-21] MEDS: DOXAZOSIN MESYLATE 2 MG TAB PO SCH ×2 (09:00→16:30)
[2021-05-21] MEDS: NIFEDIPINE CR 30 MG TAB PO SCH ×2 (09:00→16:29)
[2021-05-21] MEDS: CARVEDILOL 12.5 MG TAB PO SCH ×2 (09:00→16:30)
[2021-05-21] MEDS ORDERED: SODIUM CHLORIDE 0.9% 1000ML 2,000 ML ONE (09:23)
[2021-05-21] MEDS ORDERED: NIFEDIPINE ER30 M1 PO (11:37)
[2021-05-21] MEDS ORDERED: CARDURA2 MG PO (11:37)
[2021-05-21] MEDS: FUROSEMIDE 40 MG TAB PO SCH (16:29)
[2021-05-22] VITALS (7 sets, daily range): BP systolic 82–124; BP diastolic 37–88
[2021-05-22 06:05] LABS: BASOPHILS % 0.2 % (0.0-1.0); EOSINOPHILS # (AUTO) 0.1 (0.0-0.4); EOSINOPHILS % 2.2 % (0.0-6.0); HEMATOCRIT 26.6 % (34.2-44.1); HEMOGLOBIN 8.6 g/dL (12.0-16.0); LYMPHOCYTES # (AUTO) 0.8 (1.0-3.2); LYMPHOCYTES % 19.9 % (18.0-39.1); MEAN CORPUSCULAR HEMOGLOBIN 32.2 pg (28-32); MEAN CORPUSCULAR HGB CONC 32.3 g/dL (31-35); MEAN CORPUSCULAR VOLUME 99.6 fL (81-99); MONOCYTES # (AUTO) 0.4 (0.2-0.8); MONOCYTES % 9.6 % (4.4-11.3); NEUTROPHILS # (AUTO) 2.8 (2.1-6.9); NEUTROPHILS % 67.9 % (38.7-80.0); PLATELET COUNT 57 x10e3/uL (140-360); RED BLOOD COUNT 2.67 x10e6/uL (3.6-5.1); RED CELL DISTRIBUTION WIDTH 14.3 % (11.7-14.4)
[2021-05-22 06:32] LABS: ALBUMIN 2.8 g/dL (3.5-5.0); ALBUMIN/GLOBULIN RATIO 0.7 (0.8-2.0); ANION GAP 15.8 mmol/L (8-16); CREATININE, SERUM 2.9 mg/dL (0.57-1.11); POTASSIUM 3.8 mmol/L (3.5-5.1)
[2021-05-22] MEDS: INSULIN LISPRO 100 UNIT/1 ML 3ML VIAL SQ SCH ×4 (07:30→21:37)
[2021-05-22] MEDS: PANTOPRAZOLE SOD 40 MG TABEC PO SCH (07:30)
[2021-05-22] MEDS: NIFEDIPINE CR 30 MG TAB PO SCH (09:00)
[2021-05-22] MEDS: CARVEDILOL 12.5 MG TAB PO SCH ×2 (09:00→17:00)
[2021-05-22] MEDS: FUROSEMIDE 40 MG TAB PO SCH (09:00)
[2021-05-22] MEDS: DOXAZOSIN MESYLATE 2 MG TAB PO SCH ×2 (09:00→17:00)
[2021-05-23] VITALS (8 sets, daily range): BP systolic 109–133; BP diastolic 51–70
[2021-05-23 06:05] LABS: BASOPHILS % 1.2 % (0.0-1.0); EOSINOPHILS # (AUTO) 0.2 (0.0-0.4); EOSINOPHILS % 5.9 % (0.0-6.0); HEMATOCRIT 26.3 % (34.2-44.1); HEMOGLOBIN 8.6 g/dL (12.0-16.0); LYMPHOCYTES # (AUTO) 0.7 (1.0-3.2); LYMPHOCYTES % 21.8 % (18.0-39.1); MEAN CORPUSCULAR HEMOGLOBIN 32.3 pg (28-32); MEAN CORPUSCULAR HGB CONC 32.7 g/dL (31-35); MEAN CORPUSCULAR VOLUME 98.9 fL (81-99); MONOCYTES # (AUTO) 0.3 (0.2-0.8); MONOCYTES % 8.8 % (4.4-11.3); NEUTROPHILS # (AUTO) 2.1 (2.1-6.9); PLATELET COUNT 65 x10e3/uL (140-360); RED BLOOD COUNT 2.66 x10e6/uL (3.6-5.1); RED CELL DISTRIBUTION WIDTH 13.8 % (11.7-14.4)
[2021-05-23 06:34] LABS: ANION GAP 14.5 mmol/L (8-16); CALCIUM 8.2 mg/dL (8.4-10.2); CREATININE, SERUM 2.66 mg/dL (0.57-1.11); POTASSIUM 3.5 mmol/L (3.5-5.1)
[2021-05-23] MEDS: PANTOPRAZOLE SOD 40 MG TABEC PO SCH (08:59)
[2021-05-23] MEDS: CARVEDILOL 12.5 MG TAB PO SCH ×2 (09:00→17:00)
[2021-05-23] MEDS: NIFEDIPINE CR 30 MG TAB PO SCH (09:00)
[2021-05-23] MEDS: DOXAZOSIN MESYLATE 2 MG TAB PO SCH ×2 (09:00→17:00)
[2021-05-23] MEDS: INSULIN LISPRO 100 UNIT/1 ML 3ML VIAL SQ SCH ×4 (09:20→21:00)
[2021-05-24 04:57] VITALS: BP 143/83
[2021-05-24 05:10] LABS: BASOPHILS % 0.7 % (0.0-1.0); EOSINOPHILS # (AUTO) 0.2 (0.0-0.4); EOSINOPHILS % 6.7 % (0.0-6.0); HEMOGLOBIN 9.1 g/dL (12.0-16.0); LYMPHOCYTES # (AUTO) 0.6 (1.0-3.2); LYMPHOCYTES % 20.8 % (18.0-39.1); MEAN CORPUSCULAR HEMOGLOBIN 32.3 pg (28-32); MEAN CORPUSCULAR HGB CONC 32.5 g/dL (31-35); MEAN CORPUSCULAR VOLUME 99.3 fL (81-99); MONOCYTES # (AUTO) 0.3 (0.2-0.8); MONOCYTES % 9.5 % (4.4-11.3); NEUTROPHILS # (AUTO) 1.8 (2.1-6.9); NEUTROPHILS % 61.9 % (38.7-80.0); PLATELET COUNT 78 x10e3/uL (140-360); RED BLOOD COUNT 2.82 x10e6/uL (3.6-5.1); RED CELL DISTRIBUTION WIDTH 13.5 % (11.7-14.4)
[2021-05-24 05:59] LABS: ANION GAP 15.7 mmol/L (8-16); CALCIUM 8.2 mg/dL (8.4-10.2); CREATININE, SERUM 3.36 mg/dL (0.57-1.11); POTASSIUM 3.7 mmol/L (3.5-5.1)
[2021-05-24] MEDS: INSULIN LISPRO 100 UNIT/1 ML 3ML VIAL SQ SCH ×3 (07:30→16:45)
[2021-05-24 07:41] VITALS: BP 133/67
[2021-05-24 08:24] VITALS: BP 133/67
[2021-05-24] MEDS: CARVEDILOL 12.5 MG TAB PO SCH ×2 (09:00→17:00)
[2021-05-24] MEDS: DOXAZOSIN MESYLATE 2 MG TAB PO SCH ×2 (09:00→17:00)
[2021-05-24] MEDS: NIFEDIPINE CR 30 MG TAB PO SCH (09:00)
[2021-05-24] MEDS: PANTOPRAZOLE SOD 40 MG TABEC PO SCH (09:01)
[2021-05-24 11:05] VITALS: BP 108/44
[2021-05-24] MEDS ORDERED: SODIUM CHLORIDE 0.9% 1000ML 2,000 ML ONE (13:41)
[2021-05-24] MEDS ORDERED: SODIUM CHLORIDE 0.9% 250ML 500 ML IV PRN (13:45)
[2021-05-24 15:36] VITALS: BP 128/61
[2021-05-24 19:54] VITALS: BP 128/61
== END 2021-05-24 20:04 | disposition home or self-care (01) | DRG 91 ==
LOC: ER 09:04 → INTOOBSV 09:58 → ERHOLD 09:58 → MED/SURG3 13:27 → OBSVTOIN 05-22 12:05
PROVIDERS: ADMIT Internal Medicine; ATTEND Internal Medicine
PROC: 5A1D70Z Performance of Urinary Filtration, Intermittent, Less than 6 Hours Per Day (ICD-10-PCS; principal; 2021-05-20)
PROC: 5A1D70Z Performance of Urinary Filtration, Intermittent, Less than 6 Hours Per Day (ICD-10-PCS; 2021-05-21)
PROC: 5A1D70Z Performance of Urinary Filtration, Intermittent, Less than 6 Hours Per Day (ICD-10-PCS; 2021-05-22)
PROC: 5A1D70Z Performance of Urinary Filtration, Intermittent, Less than 6 Hours Per Day (ICD-10-PCS; 2021-05-24)
DX: G25.3 Myoclonus (principal); G92 Toxic encephalopathy; L89.313 Pressure ulcer of right buttock, stage 3; N18.6 End stage renal disease; Z68.43 Body mass index [BMI] 50.0-59.9, adult; I16.0 Hypertensive urgency; R41.82 Altered mental status, unspecified; E11.22 Type 2 diabetes mellitus with diabetic chronic kidney disease; Z99.2 Dependence on renal dialysis; E66.01 Morbid (severe) obesity due to excess calories; Z83.3 Family history of diabetes mellitus; Z82.49 Family history of ischemic heart disease and other diseases of the circulatory system; T42.8X5A Adverse effect of antiparkinsonism drugs and other central muscle-tone depressants, initial encounter; D63.1 Anemia in chronic kidney disease; Z20.822 Contact with and (suspected) exposure to COVID-19
CPT/HCPCS: 36415; 70450; 71045; 80048; 80053; 82270; 82550; 82553; 82948; 83540; 83605; 83880; 84466; 84484; 85025; 86704; 86705; 86706; 86707; 87040; 87340; 87350; 90962; 93005; 96372; 97139; 99284; G0378; J0360; J2060; J7030; U0002

== ENCOUNTER 2021-07-17 18:21 | Inpatient (IN) | payer MEDICARE, OTHER ==
[~2021-07-17] VITALS: Ht 175.3 cm; Wt 158.8 kg
[2021-07-17 00:10] VITALS: BP 134/66
[~2021-07-17 18:21] MED LIST changes: +BACLOFEN10 MG PO; +CARDURA2 MG PO; +CARVEDILOL12.5 MG PO; +FIBER; +NIFEDIPINE ER30 M1 PO; +PROTONIX20 MG PO; +[UNRECOGNIZED DRUG - CODE] PO; +[UNRECOGNIZED DRUG - OTHER]
[2021-07-17] MEDS ORDERED: CEFEPIME 1 GM in SODIUM CHLORIDE 0.9% 50ML 50 ML IV ONE (18:45)
[2021-07-17] MEDS ORDERED: ACETAMINOPHEN 325 MG TAB PO ONE (18:45)
[2021-07-17 18:48] LABS: BASOPHILS % 0.2 % (0.0-1.0); EOSINOPHILS % 0.1 % (0.0-6.0); HEMATOCRIT 23.8 % (34.2-44.1); HEMOGLOBIN 7.5 g/dL (12.0-16.0); LYMPHOCYTES # (AUTO) 0.4 (1.0-3.2); LYMPHOCYTES % 4.2 % (18.0-39.1); MEAN CORPUSCULAR HEMOGLOBIN 32.1 pg (28-32); MEAN CORPUSCULAR HGB CONC 31.5 g/dL (31-35); MEAN CORPUSCULAR VOLUME 101.7 fL (81-99); MONOCYTES # (AUTO) 0.4 (0.2-0.8); MONOCYTES % 3.6 % (4.4-11.3); NEUTROPHILS # (AUTO) 9.5 (2.1-6.9); NEUTROPHILS % 91.5 % (38.7-80.0); PLATELET COUNT 94 x10e3/uL (140-360); RED BLOOD COUNT 2.34 x10e6/uL (3.6-5.1); RED CELL DISTRIBUTION WIDTH 14.6 % (11.7-14.4)
[2021-07-17 19:09] LABS: ALBUMIN 3.2 g/dL (3.5-5.0); ALBUMIN/GLOBULIN RATIO 0.6 (0.8-2.0); ANION GAP 17.1 mmol/L (8-16); CALCIUM 8.7 mg/dL (8.4-10.2); CREATININE, SERUM 3.89 mg/dL (0.57-1.11); POTASSIUM 5.1 mmol/L (3.5-5.1)
[2021-07-17 19:15] LABS: CREATINE KINASE MB 0.3 ng/mL (0-5.0)
[2021-07-17 19:33] LABS: B-TYPE NATRIURETIC PEPTIDE2 695.7 pg/mL (0-100)
[2021-07-17] MEDS ORDERED: Vancomycin IV 1 GM in SODIUM CHLORIDE 0.9% 250ML 250 ML IV ONE (20:15)
[2021-07-17 20:33] LABS: CLARITY,URINE SL CLOUDY (CLEAR); COLOR,URINE YELLOW (YELLOW); LEUKOCYTE ESTERASE ,URINE NEGATIVE (NEGATIVE); NITRITE,URINE NEGATIVE (NEGATIVE)
[2021-07-17 20:34] LABS: KETONES,URINE NEGATIVE (NEGATIVE); PROTEIN,URINE DIPSTICK >=300 (NEGATIVE)
[2021-07-17 20:40] LABS: LYMPHOCYTES % (MANUAL) 5 % (19-48); MONOCYTES % (MANUAL) 3 % (3.4-9.0); NEUTROPHILS % (MANUAL) 92 % (40-74)
[2021-07-17 20:42] LABS: HYPOCHROMASIA SLIGHT; RBC MORPHOLOGY COMMENT ABNORMAL; ROULEAU MODERATE
[2021-07-17 20:43] LABS: PLATELET ESTIMATE SLIGHTLY DECREASED; PLATELET MORPHOLOGY COMMENT NORMAL
[2021-07-17 20:50] LABS: BACTERIA,URINE MODERATE /HPF; EPITHELIAL CELLS,URINE MODERATE /LPF; RBC,URINE 21-50 /HPF (0-5); WBC,URINE (MAN) 0-5 /HPF (0-5)
[2021-07-17] MEDS ORDERED: ONDANSETRON HCL INJ 2MG/ML 2ML 2 MG/ML VIAL IV PRN (23:30)
[2021-07-17] MEDS ORDERED: SODIUM CHLORIDE FLUSH 10 ML SYR INJ PRN (23:30)
[2021-07-17] MEDS ORDERED: DEXTROSE 50% SYRINGE 50 ML IV PRN (23:30)
[2021-07-18] VITALS (8 sets, daily range): BP systolic 112–167; BP diastolic 59–81
[2021-07-18] MEDS ORDERED: LEVEMIR100 UNIT/1 SC (00:51)
[2021-07-18] MEDS ORDERED: HUMALOG KW200 UNIT/1 (01:02)
[2021-07-18] MEDS ORDERED: VITAMIN D250 MCG PO (01:04)
[2021-07-18] MEDS ORDERED: LASIX40 MG PO (01:04)
[2021-07-18] MEDS ORDERED: LACTULOSE20 GM/30 M PO (01:10)
[2021-07-18] MEDS ORDERED: ASPIRIN81 MG PO (01:10)
[2021-07-18] MEDS ORDERED: PROTONIX20 MG PO (01:10)
[2021-07-18 08:00] LABS: BASOPHILS % 0.1 % (0.0-1.0); EOSINOPHILS % 0.4 % (0.0-6.0); HEMOGLOBIN 7.2 g/dL (12.0-16.0); LYMPHOCYTES # (AUTO) 0.4 (1.0-3.2); LYMPHOCYTES % 4.3 % (18.0-39.1); MEAN CORPUSCULAR HGB CONC 31.6 g/dL (31-35); MEAN CORPUSCULAR VOLUME 101.3 fL (81-99); MONOCYTES # (AUTO) 0.3 (0.2-0.8); MONOCYTES % 3.9 % (4.4-11.3); NEUTROPHILS # (AUTO) 7.4 (2.1-6.9); NEUTROPHILS % 91.1 % (38.7-80.0); PLATELET COUNT 93 x10e3/uL (140-360); RED BLOOD COUNT 2.25 x10e6/uL (3.6-5.1); RED CELL DISTRIBUTION WIDTH 14.7 % (11.7-14.4)
[2021-07-18 08:10] LABS: HEMATOCRIT 22.8 % (34.2-44.1)
[2021-07-18 08:18] LABS: ALBUMIN/GLOBULIN RATIO 0.6 (0.8-2.0); ANION GAP 16.9 mmol/L (8-16); CALCIUM 8.3 mg/dL (8.4-10.2); CREATININE, SERUM 3.93 mg/dL (0.57-1.11); POTASSIUM 4.9 mmol/L (3.5-5.1)
[2021-07-18] MEDS: CEFEPIME 1 GM in SODIUM CHLORIDE 0.9% 50ML 50 ML IV SCH ×2 (09:08→20:45)
[2021-07-18] MEDS: INSULIN REGULAR, HUMAN 100 UNIT/1 ML SQ SCH ×4 (09:12→20:53)
[2021-07-18] MEDS ORDERED: LACTULOSE SYRUP 20 GM/30 ML UDC PO PRN (09:30)
[2021-07-18] MEDS ORDERED: SODIUM CHLORIDE 0.9% 250ML 250 ML IV ONE (09:30)
[2021-07-18] MEDS ORDERED: TRAMADOL HCL 50 MG TAB PO PRN (09:30)
[2021-07-18] MEDS ORDERED: ACETAMINOPHEN 325 MG TAB PO PRN (09:30)
[2021-07-18] MEDS ORDERED: SODIUM CHLORIDE 0.9% 1000ML 2,000 ML ONE (09:38)
[2021-07-18 11:36] LABS: LYMPHOCYTES % (MANUAL) 2 % (19-48); MONOCYTES % (MANUAL) 4 % (3.4-9.0); NEUTROPHILS % (MANUAL) 94 % (40-74); PLATELET ESTIMATE SLIGHTLY DECREASED; PLATELET MORPHOLOGY COMMENT NORMAL; RBC MORPHOLOGY COMMENT NORMAL
[2021-07-18] MEDS: PANTOPRAZOLE SOD 40 MG TABEC PO SCH (12:16)
[2021-07-18] MEDS ORDERED: SODIUM CHLORIDE 0.9% 250ML 250 ML ONE (12:30)
[2021-07-18] MEDS: INSULIN GLARGINE 100 UNITS/ML VIAL SC SCH ×2 (13:57→20:53)
[2021-07-18] MEDS: CARVEDILOL 12.5 MG TAB PO SCH (16:45)
[2021-07-19] VITALS (9 sets, daily range): BP systolic 97–121; BP diastolic 46–69
[2021-07-19 05:07] LABS: BASOPHILS % 0.2 % (0.0-1.0); EOSINOPHILS # (AUTO) 0.2 (0.0-0.4); EOSINOPHILS % 3.8 % (0.0-6.0); HEMOGLOBIN 7.1 g/dL (12.0-16.0); LYMPHOCYTES # (AUTO) 0.5 (1.0-3.2); LYMPHOCYTES % 9.8 % (18.0-39.1); MEAN CORPUSCULAR HEMOGLOBIN 31.4 pg (28-32); MEAN CORPUSCULAR HGB CONC 32.7 g/dL (31-35); MONOCYTES # (AUTO) 0.4 (0.2-0.8); MONOCYTES % 7.3 % (4.4-11.3); NEUTROPHILS # (AUTO) 3.8 (2.1-6.9); NEUTROPHILS % 78.5 % (38.7-80.0); PLATELET COUNT 78 x10e3/uL (140-360); RED BLOOD COUNT 2.26 x10e6/uL (3.6-5.1); RED CELL DISTRIBUTION WIDTH 16.8 % (11.7-14.4)
[2021-07-19 05:39] LABS: ANION GAP 15.1 mmol/L (8-16); CREATININE, SERUM 3.58 mg/dL (0.57-1.11); HEMATOCRIT 21.7 % (34.2-44.1); POTASSIUM 4.1 mmol/L (3.5-5.1)
[2021-07-19 05:40] LABS: MAGNESIUM 1.8 MG/DL (1.3-2.1); PHOSPHORUS 4.3 MG/DL (2.3-4.7)
[2021-07-19] MEDS: INSULIN REGULAR, HUMAN 100 UNIT/1 ML SQ SCH ×4 (07:30→21:38)
[2021-07-19] MEDS ORDERED: SODIUM CHLORIDE 0.9% 250ML 250 ML ONE ×2 (07:32→08:50)
[2021-07-19] MEDS ORDERED: SODIUM CHLORIDE 0.9% 1000ML 2,000 ML IV PRN (07:45)
[2021-07-19] MEDS ORDERED: SODIUM CHLORIDE 0.9% 250ML 500 ML IV PRN (07:45)
[2021-07-19] MEDS ORDERED: SODIUM CHLORIDE 0.9% 1000ML 2,000 ML ONE (07:59)
[2021-07-19] MEDS ORDERED: SODIUM CHLORIDE 0.9% 250ML 250 ML IV ONE (08:00)
[2021-07-19] MEDS: CARVEDILOL 12.5 MG TAB PO SCH ×2 (09:00→16:54)
[2021-07-19] MEDS: NIFEDIPINE CR 30 MG TAB PO SCH (09:00)
[2021-07-19] MEDS: ASPIRIN 81 MG CHEW TAB PO SCH (09:45)
[2021-07-19] MEDS: PANTOPRAZOLE SOD 40 MG TABEC PO SCH (09:45)
[2021-07-19] MEDS: INSULIN GLARGINE 100 UNITS/ML VIAL SC SCH ×2 (09:45→21:00)
[2021-07-19] MEDS: EPOETIN ALFA-EPBX 10,000 UNIT/ML VIAL SC SCH (12:03)
[2021-07-19] MEDS: CEFEPIME 1 GM in SODIUM CHLORIDE 0.9% 50ML 50 ML IV SCH ×2 (12:03→21:37)
[2021-07-19] MEDS: FUROSEMIDE 40 MG TAB PO SCH (16:52)
[2021-07-20] VITALS (8 sets, daily range): BP systolic 106–126; BP diastolic 56–63
[2021-07-20 05:59] LABS: BASOPHILS % 0.6 % (0.0-1.0); EOSINOPHILS # (AUTO) 0.3 (0.0-0.4); EOSINOPHILS % 5.1 % (0.0-6.0); HEMATOCRIT 28.4 % (34.2-44.1); LYMPHOCYTES # (AUTO) 0.7 (1.0-3.2); LYMPHOCYTES % 14.6 % (18.0-39.1); MEAN CORPUSCULAR HGB CONC 31.7 g/dL (31-35); MEAN CORPUSCULAR VOLUME 97.9 fL (81-99); MONOCYTES # (AUTO) 0.3 (0.2-0.8); MONOCYTES % 6.6 % (4.4-11.3); NEUTROPHILS # (AUTO) 3.5 (2.1-6.9); NEUTROPHILS % 72.7 % (38.7-80.0); PLATELET COUNT 100 x10e3/uL (140-360); RED CELL DISTRIBUTION WIDTH 17.1 % (11.7-14.4)
[2021-07-20 06:23] LABS: ANION GAP 17.3 mmol/L (8-16); CALCIUM 8.4 mg/dL (8.4-10.2); CREATININE, SERUM 2.86 mg/dL (0.57-1.11); POTASSIUM 4.3 mmol/L (3.5-5.1)
[2021-07-20] MEDS: INSULIN REGULAR, HUMAN 100 UNIT/1 ML SQ SCH ×4 (07:27→20:51)
[2021-07-20] MEDS: PANTOPRAZOLE SOD 40 MG TABEC PO SCH (08:00)
[2021-07-20] MEDS: NIFEDIPINE CR 30 MG TAB PO SCH (09:00)
[2021-07-20] MEDS: ASPIRIN 81 MG CHEW TAB PO SCH (09:03)
[2021-07-20] MEDS: CEFEPIME 1 GM in SODIUM CHLORIDE 0.9% 50ML 50 ML IV SCH (09:03)
[2021-07-20] MEDS: FUROSEMIDE 40 MG TAB PO SCH (09:03)
[2021-07-20] MEDS: CARVEDILOL 12.5 MG TAB PO SCH ×2 (09:04→17:00)
[2021-07-20] MEDS: INSULIN GLARGINE 100 UNITS/ML VIAL SC SCH ×2 (09:04→20:49)
[2021-07-21] VITALS (7 sets, daily range): BP systolic 108–142; BP diastolic 49–72
[2021-07-21 05:00] LABS: BASOPHILS % 0.8 % (0.0-1.0); EOSINOPHILS # (AUTO) 0.3 (0.0-0.4); EOSINOPHILS % 7.4 % (0.0-6.0); HEMATOCRIT 25.6 % (34.2-44.1); HEMOGLOBIN 8.3 g/dL (12.0-16.0); LYMPHOCYTES # (AUTO) 0.5 (1.0-3.2); MEAN CORPUSCULAR HGB CONC 32.4 g/dL (31-35); MEAN CORPUSCULAR VOLUME 95.5 fL (81-99); MONOCYTES # (AUTO) 0.4 (0.2-0.8); MONOCYTES % 9.3 % (4.4-11.3); NEUTROPHILS # (AUTO) 2.6 (2.1-6.9); PLATELET COUNT 114 x10e3/uL (140-360); RED BLOOD COUNT 2.68 x10e6/uL (3.6-5.1); RED CELL DISTRIBUTION WIDTH 16.3 % (11.7-14.4)
[2021-07-21 05:39] LABS: ALBUMIN 2.9 g/dL (3.5-5.0); ALBUMIN/GLOBULIN RATIO 0.6 (0.8-2.0); ANION GAP 16.1 mmol/L (8-16); CALCIUM 7.7 mg/dL (8.4-10.2); CREATININE, SERUM 3.39 mg/dL (0.57-1.11); POTASSIUM 4.1 mmol/L (3.5-5.1)
[2021-07-21] MEDS: INSULIN REGULAR, HUMAN 100 UNIT/1 ML SQ SCH ×3 (07:30→17:08)
[2021-07-21] MEDS: PANTOPRAZOLE SOD 40 MG TABEC PO SCH (07:30)
[2021-07-21] MEDS ORDERED: SODIUM CHLORIDE 0.9% 1000ML 1,000 ML ONE (07:30)
[2021-07-21] MEDS: FUROSEMIDE 40 MG TAB PO SCH (09:00)
[2021-07-21] MEDS: INSULIN GLARGINE 100 UNITS/ML VIAL SC SCH (09:00)
[2021-07-21] MEDS: NIFEDIPINE CR 30 MG TAB PO SCH (09:00)
[2021-07-21] MEDS: ASPIRIN 81 MG CHEW TAB PO SCH (09:00)
[2021-07-21] MEDS: CARVEDILOL 12.5 MG TAB PO SCH ×2 (09:00→17:00)
[2021-07-21] MEDS: EPOETIN ALFA-EPBX 10,000 UNIT/ML VIAL SC SCH (12:48)
[2021-07-21] MEDS: CEFEPIME 1 GM in SODIUM CHLORIDE 0.9% 50ML 50 ML IV SCH (12:48)
[2021-07-22] MEDS: INSULIN REGULAR, HUMAN 100 UNIT/1 ML SQ SCH ×4 (00:53→16:09)
[2021-07-22] MEDS: INSULIN GLARGINE 100 UNITS/ML VIAL SC SCH ×4 (00:54→21:00)
[2021-07-22 00:57] VITALS: BP 141/69
[2021-07-22 05:41] VITALS: BP 133/67
[2021-07-22 08:17] VITALS: BP 118/65
[2021-07-22] MEDS: NIFEDIPINE CR 30 MG TAB PO SCH (08:36)
[2021-07-22] MEDS: CEFEPIME 1 GM in SODIUM CHLORIDE 0.9% 50ML 50 ML IV SCH (08:36)
[2021-07-22] MEDS: ASPIRIN 81 MG CHEW TAB PO SCH (08:36)
[2021-07-22] MEDS: PANTOPRAZOLE SOD 40 MG TABEC PO SCH (08:36)
[2021-07-22] MEDS: FUROSEMIDE 40 MG TAB PO SCH (08:36)
[2021-07-22] MEDS: CARVEDILOL 12.5 MG TAB PO SCH ×3 (08:37→16:39)
[2021-07-22 10:16] LABS: BASOPHILS % 0.8 % (0.0-1.0); EOSINOPHILS # (AUTO) 0.2 (0.0-0.4); HEMOGLOBIN 8.2 g/dL (12.0-16.0); LYMPHOCYTES # (AUTO) 0.5 (1.0-3.2); MEAN CORPUSCULAR HEMOGLOBIN 31.2 pg (28-32); MEAN CORPUSCULAR HGB CONC 31.5 g/dL (31-35); MEAN CORPUSCULAR VOLUME 98.9 fL (81-99); MONOCYTES # (AUTO) 0.3 (0.2-0.8); MONOCYTES % 8.3 % (4.4-11.3); NEUTROPHILS # (AUTO) 2.6 (2.1-6.9); NEUTROPHILS % 71.8 % (38.7-80.0); PLATELET COUNT 112 x10e3/uL (140-360); RED BLOOD COUNT 2.63 x10e6/uL (3.6-5.1); RED CELL DISTRIBUTION WIDTH 16.1 % (11.7-14.4)
[2021-07-22] MEDS ORDERED: ONDANSETRON HCL 4 MG ORAL DISINTEGRATING TAB PO PRN (10:30)
[2021-07-22] MEDS ORDERED: CIPROFLOXACIN 250 MG TAB PO SCH (10:30)
[2021-07-22 10:44] LABS: ALBUMIN 2.7 g/dL (3.5-5.0); ALBUMIN/GLOBULIN RATIO 0.6 (0.8-2.0); ANION GAP 15.3 mmol/L (8-16); CREATININE, SERUM 2.92 mg/dL (0.57-1.11); POTASSIUM 4.3 mmol/L (3.5-5.1)
[2021-07-22 12:06] VITALS: BP 146/65
[2021-07-22] MEDS ORDERED: CARVEDILOL12.5 MG PO ×2 (13:05→13:06)
[2021-07-22] MEDS ORDERED: PROTONIX20 MG PO (13:08)
[2021-07-22] MEDS ORDERED: ASPIRIN81 MG PO (13:08)
[2021-07-22] MEDS ORDERED: NIFEDIPINE ER30 M1 PO (13:08)
[2021-07-22] MEDS ORDERED: LASIX40 MG PO (13:08)
[2021-07-22 16:24] VITALS: BP 140/84
[2021-07-22 19:00] VITALS: BP 141/63
[2021-07-23 00:41] VITALS: BP 157/78
[2021-07-23 05:46] LABS: BASOPHILS % 0.7 % (0.0-1.0); EOSINOPHILS # (AUTO) 0.2 (0.0-0.4); EOSINOPHILS % 5.5 % (0.0-6.0); HEMATOCRIT 24.7 % (34.2-44.1); HEMOGLOBIN 7.9 g/dL (12.0-16.0); LYMPHOCYTES # (AUTO) 0.5 (1.0-3.2); LYMPHOCYTES % 16.3 % (18.0-39.1); MEAN CORPUSCULAR VOLUME 96.9 fL (81-99); MONOCYTES # (AUTO) 0.3 (0.2-0.8); MONOCYTES % 9.1 % (4.4-11.3); NEUTROPHILS # (AUTO) 2.1 (2.1-6.9); NEUTROPHILS % 67.7 % (38.7-80.0); PLATELET COUNT 105 x10e3/uL (140-360); RED BLOOD COUNT 2.55 x10e6/uL (3.6-5.1)
[2021-07-23 05:50] VITALS: BP 133/60
[2021-07-23 06:14] LABS: ALBUMIN 2.8 g/dL (3.5-5.0); ALBUMIN/GLOBULIN RATIO 0.7 (0.8-2.0); ANION GAP 13.2 mmol/L (8-16); CALCIUM 8.2 mg/dL (8.4-10.2); CREATININE, SERUM 3.23 mg/dL (0.57-1.11); POTASSIUM 4.2 mmol/L (3.5-5.1)
[2021-07-23] MEDS: INSULIN REGULAR, HUMAN 100 UNIT/1 ML SQ SCH ×3 (06:16→11:30)
[2021-07-23] MEDS: PANTOPRAZOLE SOD 40 MG TABEC PO SCH (07:30)
[2021-07-23] MEDS: ASPIRIN 81 MG CHEW TAB PO SCH (08:32)
[2021-07-23] MEDS: CARVEDILOL 12.5 MG TAB PO SCH (08:32)
[2021-07-23] MEDS: FUROSEMIDE 40 MG TAB PO SCH (08:33)
[2021-07-23] MEDS: INSULIN GLARGINE 100 UNITS/ML VIAL SC SCH (08:33)
[2021-07-23] MEDS: NIFEDIPINE CR 30 MG TAB PO SCH (08:34)
[2021-07-23 09:05] VITALS: BP 132/61
[2021-07-23] MEDS: EPOETIN ALFA-EPBX 10,000 UNIT/ML VIAL SC SCH (11:16)
[2021-07-23 12:15] VITALS: BP 126/74
== END 2021-07-23 14:00 | disposition home or self-care (01) | DRG 919 ==
LOC: ER 18:48 → ERHOLD 23:24 → MED/SURG2 07-18 00:13
PROVIDERS: ADMIT Internal Medicine; ATTEND Internal Medicine
PROC: 5A1D70Z Performance of Urinary Filtration, Intermittent, Less than 6 Hours Per Day (ICD-10-PCS; principal; 2021-07-18)
DX: T85.71XA Infection and inflammatory reaction due to peritoneal dialysis catheter, initial encounter (principal); A41.9 Sepsis, unspecified organism; L89.154 Pressure ulcer of sacral region, stage 4; N18.6 End stage renal disease; L89.313 Pressure ulcer of right buttock, stage 3; I12.0 Hypertensive chronic kidney disease with stage 5 chronic kidney disease or end stage renal disease; E87.2 Acidosis; Z68.43 Body mass index [BMI] 50.0-59.9, adult; L03.115 Cellulitis of right lower limb; E87.70 Fluid overload, unspecified; E11.22 Type 2 diabetes mellitus with diabetic chronic kidney disease; Z99.2 Dependence on renal dialysis; Z79.82 Long term (current) use of aspirin; Z79.4 Long term (current) use of insulin; Z90.49 Acquired absence of other specified parts of digestive tract; E66.01 Morbid (severe) obesity due to excess calories; B96.5 Pseudomonas (aeruginosa) (mallei) (pseudomallei) as the cause of diseases classified elsewhere; Z20.822 Contact with and (suspected) exposure to COVID-19; Z83.3 Family history of diabetes mellitus; Z80.9 Family history of malignant neoplasm, unspecified; Z88.8 Allergy status to other drugs, medicaments and biological substances; D63.1 Anemia in chronic kidney disease; R53.81 Other malaise
CPT/HCPCS: 36415; 71045; 74176; 80048; 80053; 81001; 82550; 82553; 82948; 83605; 83735; 83880; 84100; 84484; 85025; 86705; 86707; 86850; 86900; 86920; 87040; 87071; 87086; 87186; 87205; 87340; 90962; 93005; 96372; 99251; 99284; J0692; J1815; J1817; J3370; J7030; J7050; P9016; U0002

== ENCOUNTER → 2021-10-11 | Emergency (ER) | payer MEDICARE, OTHER ==
[~2021-10-11] MED LIST changes: +ACETAMINOPHEN 325 MG TAB ONE; +ASPIRIN81 MG PO; +HUMALOG KW200 UNIT/1; +LACTULOSE20 GM/30 M PO; +LEVEMIR100 UNIT/1 SC; +VITAMIN D250 MCG PO
== END | disposition left against medical advice (07) ==
LOC: ER 11:15
DX: R09.89 Other specified symptoms and signs involving the circulatory and respiratory systems (principal)

== ENCOUNTER 2021-10-12 16:49 | Inpatient (IN) | payer MEDICARE, OTHER ==
[~2021-10-12] VITALS: Ht 167.6 cm; Wt 136.1 kg
[~2021-10-12 16:49] MED LIST changes: -ACETAMINOPHEN 325 MG TAB ONE
[2021-10-12 18:15] LABS: BASOPHILS % 0.2 % (0.0-1.0); HEMATOCRIT 31.2 % (34.2-44.1); HEMOGLOBIN 9.7 g/dL (12.0-16.0); LYMPHOCYTES # (AUTO) 0.3 (1.0-3.2); LYMPHOCYTES % 5.2 % (18.0-39.1); MEAN CORPUSCULAR HEMOGLOBIN 31.4 pg (28-32); MEAN CORPUSCULAR HGB CONC 31.1 g/dL (31-35); MONOCYTES # (AUTO) 0.3 (0.2-0.8); MONOCYTES % 4.5 % (4.4-11.3); NEUTROPHILS % 89.4 % (38.7-80.0); PLATELET COUNT 62 x10e3/uL (140-360); RED BLOOD COUNT 3.09 x10e6/uL (3.6-5.1); RED CELL DISTRIBUTION WIDTH 15.4 % (11.7-14.4)
[2021-10-12] MEDS: PIPERACILLIN/TAZOBACTAM 3.375 GM in SODIUM CHLORIDE 0.9% 50ML 50 ML IV SCH (18:27)
[2021-10-12 18:30] LABS: ALBUMIN 3.5 g/dL (3.5-5.0); ALBUMIN/GLOBULIN RATIO 0.7 (0.8-2.0); ANION GAP 21.4 mmol/L (8-16); CALCIUM 9.4 mg/dL (8.4-10.2); CREATININE, SERUM 5.1 mg/dL (0.57-1.11); POTASSIUM 4.4 mmol/L (3.5-5.1)
[2021-10-12] MEDS ORDERED: FUROSEMIDE INJ 10 MG/ML 4 ML VIAL IV NR (19:45)
[2021-10-12] MEDS ORDERED: ACETAMINOPHEN 325 MG TAB PO ONE (22:15)
[2021-10-12 22:31] LABS: CLARITY,URINE SL CLOUDY (CLEAR); COLOR,URINE YELLOW (YELLOW); KETONES,URINE TRACE (NEGATIVE); LEUKOCYTE ESTERASE ,URINE NEGATIVE (NEGATIVE); NITRITE,URINE NEGATIVE (NEGATIVE); PROTEIN,URINE DIPSTICK >=300 (NEGATIVE); URINE UROBILINOGEN 0.2 mg/dL (0.2 - 1)
[2021-10-12 22:36] LABS: AMORPHOUS SEDIMENT,URINE MANY (FEW); BACTERIA,URINE MANY /HPF; EPITHELIAL CELLS,URINE MANY /LPF; RBC,URINE >50 /HPF (0-5); WBC,URINE (MAN) 21-50 /HPF (0-5)
[2021-10-12] MEDS ORDERED: FUROSEMIDE INJ 10 MG/ML 4 ML VIAL IV ONE (23:00)
[2021-10-12] MEDS ORDERED: SODIUM CHLORIDE 0.9% 500ML 500 ML IV STA (23:37)
[2021-10-12] MEDS ORDERED: SODIUM CHLORIDE 0.9% 500ML 500 ML ONE (23:51)
[2021-10-13] VITALS (8 sets, daily range): BP systolic 108–135; BP diastolic 64–71
[2021-10-13] MEDS: PIPERACILLIN/TAZOBACTAM 3.375 GM in SODIUM CHLORIDE 0.9% 50ML 50 ML IV SCH ×4 (00:45→17:09)
[2021-10-13 06:25] LABS: BASOPHILS % 0.3 % (0.0-1.0); HEMATOCRIT 29.7 % (34.2-44.1); HEMOGLOBIN 9.2 g/dL (12.0-16.0); LYMPHOCYTES # (AUTO) 0.4 (1.0-3.2); LYMPHOCYTES % 5.8 % (18.0-39.1); MEAN CORPUSCULAR HEMOGLOBIN 31.4 pg (28-32); MEAN CORPUSCULAR VOLUME 101.4 fL (81-99); MONOCYTES # (AUTO) 0.2 (0.2-0.8); NEUTROPHILS # (AUTO) 6.5 (2.1-6.9); NEUTROPHILS % 89.4 % (38.7-80.0); PLATELET COUNT 87 x10e3/uL (140-360); RED BLOOD COUNT 2.93 x10e6/uL (3.6-5.1); RED CELL DISTRIBUTION WIDTH 15.6 % (11.7-14.4)
[2021-10-13 06:52] LABS: ALBUMIN 2.8 g/dL (3.5-5.0); ALBUMIN/GLOBULIN RATIO 0.6 (0.8-2.0); ANION GAP 20.5 mmol/L (8-16); CALCIUM 8.6 mg/dL (8.4-10.2); CREATINE KINASE MB 0.9 ng/mL (0-5.0); CREATININE, SERUM 5.37 mg/dL (0.57-1.11); POTASSIUM 4.5 mmol/L (3.5-5.1)
[2021-10-13 11:14] LABS: BAND NEUTROPHILS % (MANUAL) 12 %; LYMPHOCYTES % (MANUAL) 4 % (19-48); METAMYELOCYTES % (MANUAL) 2 % (0-0); MONOCYTES % (MANUAL) 9 % (3.4-9.0); NEUTROPHILS % (MANUAL) 73 % (40-74); PLATELET ESTIMATE MODERATELY DECREASED; PLATELET MORPHOLOGY COMMENT NORMAL; RBC MORPHOLOGY COMMENT NORMAL
[2021-10-13] MEDS ORDERED: SODIUM CHLORIDE 0.9% 1000ML 1,000 ML ONE (14:46)
[2021-10-13] MEDS ORDERED: [UNRECOGNIZED DRUG - OTHER] PO SCH (15:45)
[2021-10-13] MEDS ORDERED: PANTOPRAZOLE SOD 40 MG TABEC PO PRN (15:45)
[2021-10-13] MEDS ORDERED: LACTULOSE SYRUP 20 GM/30 ML UDC PO PRN (15:45)
[2021-10-13] MEDS: DOXAZOSIN MESYLATE 2 MG TAB PO SCH (17:00)
[2021-10-13] MEDS: CARVEDILOL 12.5 MG TAB PO SCH (17:00)
[2021-10-13] MEDS: INSULIN GLARGINE 100 UNITS/ML VIAL SQ SCH (18:08)
[2021-10-13] MEDS: ALBUTEROL/IPRATROPIUM 3 ML NEB NEB SCH (23:57)
[2021-10-14] VITALS (8 sets, daily range): BP systolic 103–132; BP diastolic 54–70
[2021-10-14] MEDS: GUAIFENESIN 600MG/DEXTROMETHORPHAN 30MG TABSR PO SCH ×4 (00:18→18:46)
[2021-10-14 05:37] LABS: BASOPHILS % 0.2 % (0.0-1.0); EOSINOPHILS % 0.3 % (0.0-6.0); HEMATOCRIT 29.3 % (34.2-44.1); HEMOGLOBIN 9.2 g/dL (12.0-16.0); LYMPHOCYTES # (AUTO) 0.8 (1.0-3.2); LYMPHOCYTES % 13.5 % (18.0-39.1); MEAN CORPUSCULAR HEMOGLOBIN 31.5 pg (28-32); MEAN CORPUSCULAR HGB CONC 31.4 g/dL (31-35); MEAN CORPUSCULAR VOLUME 100.3 fL (81-99); MONOCYTES # (AUTO) 0.3 (0.2-0.8); MONOCYTES % 4.7 % (4.4-11.3); NEUTROPHILS # (AUTO) 4.8 (2.1-6.9); PLATELET COUNT 87 x10e3/uL (140-360); RED BLOOD COUNT 2.92 x10e6/uL (3.6-5.1); RED CELL DISTRIBUTION WIDTH 15.1 % (11.7-14.4)
[2021-10-14] MEDS ORDERED: SODIUM CHLORIDE 0.9% 250ML 250 ML ONE (05:47)
[2021-10-14] MEDS: PIPERACILLIN/TAZOBACTAM 3.375 GM in SODIUM CHLORIDE 0.9% 50ML 50 ML IV SCH ×2 (05:50→18:46)
[2021-10-14 05:55] LABS: ANION GAP 18.9 mmol/L (8-16); CALCIUM 8.7 mg/dL (8.4-10.2); CREATININE, SERUM 4.96 mg/dL (0.57-1.11); MAGNESIUM 2.3 MG/DL (1.3-2.1); PHOSPHORUS 5.2 MG/DL (2.3-4.7); POTASSIUM 3.9 mmol/L (3.5-5.1)
[2021-10-14] MEDS: ALBUTEROL/IPRATROPIUM 3 ML NEB NEB SCH ×3 (07:08→19:33)
[2021-10-14] MEDS: PANTOPRAZOLE SOD 40 MG TABEC PO SCH (07:30)
[2021-10-14] MEDS ORDERED: CEFTRIAXONE 2 GM in SODIUM CHLORIDE 0.9% 100 ML IV SCH (09:00)
[2021-10-14] MEDS: ASPIRIN 81 MG CHEW TAB PO SCH (09:00)
[2021-10-14] MEDS: INSULIN GLARGINE 100 UNITS/ML VIAL SQ SCH ×2 (09:00→18:47)
[2021-10-14] MEDS: FUROSEMIDE 40 MG TAB PO SCH (09:00)
[2021-10-14] MEDS ORDERED: FUROSEMIDE 40 MG TAB PO SCH (09:00)
[2021-10-14] MEDS: CARVEDILOL 12.5 MG TAB PO SCH ×2 (09:00→17:00)
[2021-10-14] MEDS ORDERED: NON-FORMULARY MEDICATION (Ergocalciferol (Vitamin D2) (Vitamin D2) 50,000 UNIT) PO SCH (09:00)
[2021-10-14] MEDS: NIFEDIPINE CR 30 MG TAB PO SCH (09:00)
[2021-10-14] MEDS: FOLIC ACID/CYANOCOB/PYRIDOXINE TAB PO SCH (09:00)
[2021-10-14] MEDS: DOXAZOSIN MESYLATE 2 MG TAB PO SCH ×2 (09:00→17:00)
[2021-10-14 10:25] LABS: BAND NEUTROPHILS % (MANUAL) 2 %; LYMPHOCYTES % (MANUAL) 12 % (19-48); MONOCYTES % (MANUAL) 2 % (3.4-9.0); MYELOCYTES % (MANUAL) 1 % (0-0); NEUTROPHILS % (MANUAL) 83 % (40-74)
[2021-10-14 10:26] LABS: PLATELET ESTIMATE MODERATELY DECREASED; PLATELET MORPHOLOGY COMMENT FEW LARGE; RBC MORPHOLOGY COMMENT NORMAL
[2021-10-14] MEDS ORDERED: SODIUM CHLORIDE 0.9% 1000ML 2,000 ML ONE (13:40)
[2021-10-14] MEDS: AZITHROMYCIN 250 MG TAB PO SCH (14:08)
[2021-10-15] VITALS (7 sets, daily range): BP systolic 117–135; BP diastolic 68–79
[2021-10-15] MEDS: GUAIFENESIN 600MG/DEXTROMETHORPHAN 30MG TABSR PO SCH ×5 (00:05→23:46)
[2021-10-15] MEDS: ALBUTEROL/IPRATROPIUM 3 ML NEB NEB SCH ×4 (01:05→19:00)
[2021-10-15 05:30] LABS: BASOPHILS % 0.7 % (0.0-1.0); EOSINOPHILS # (AUTO) 0.1 (0.0-0.4); EOSINOPHILS % 2.2 % (0.0-6.0); HEMATOCRIT 29.1 % (34.2-44.1); HEMOGLOBIN 9.1 g/dL (12.0-16.0); LYMPHOCYTES # (AUTO) 0.6 (1.0-3.2); LYMPHOCYTES % 13.7 % (18.0-39.1); MEAN CORPUSCULAR HEMOGLOBIN 31.8 pg (28-32); MEAN CORPUSCULAR HGB CONC 31.3 g/dL (31-35); MEAN CORPUSCULAR VOLUME 101.7 fL (81-99); MONOCYTES # (AUTO) 0.3 (0.2-0.8); NEUTROPHILS # (AUTO) 3.4 (2.1-6.9); NEUTROPHILS % 76.3 % (38.7-80.0); PLATELET COUNT 111 x10e3/uL (140-360); RED BLOOD COUNT 2.86 x10e6/uL (3.6-5.1); RED CELL DISTRIBUTION WIDTH 15.1 % (11.7-14.4)
[2021-10-15] MEDS: PIPERACILLIN/TAZOBACTAM 3.375 GM in SODIUM CHLORIDE 0.9% 50ML 50 ML IV SCH ×2 (05:34→17:30)
[2021-10-15 05:52] LABS: ALBUMIN 2.6 g/dL (3.5-5.0); ALBUMIN/GLOBULIN RATIO 0.5 (0.8-2.0); ANION GAP 15.7 mmol/L (8-16); CALCIUM 8.5 mg/dL (8.4-10.2); CREATININE, SERUM 4.05 mg/dL (0.57-1.11); POTASSIUM 3.7 mmol/L (3.5-5.1)
[2021-10-15 08:10] LABS: EOSINOPHILS % (MANUAL) 2 % (0-7); LYMPHOCYTES % (MANUAL) 13 % (19-48); MONOCYTES % (MANUAL) 6 % (3.4-9.0); NEUTROPHILS % (MANUAL) 79 % (40-74); PLATELET ESTIMATE SLIGHTLY DECREASED; PLATELET MORPHOLOGY COMMENT NORMAL
[2021-10-15 08:11] LABS: HYPOCHROMASIA SLIGHT; RBC MORPHOLOGY COMMENT NORMAL
[2021-10-15] MEDS: PANTOPRAZOLE SOD 40 MG TABEC PO SCH (08:15)
[2021-10-15] MEDS: INSULIN GLARGINE 100 UNITS/ML VIAL SQ SCH ×2 (09:00→17:00)
[2021-10-15] MEDS: DOXAZOSIN MESYLATE 2 MG TAB PO SCH ×2 (09:00→17:00)
[2021-10-15] MEDS: NIFEDIPINE CR 30 MG TAB PO SCH (09:00)
[2021-10-15] MEDS: CARVEDILOL 12.5 MG TAB PO SCH ×2 (09:00→17:00)
[2021-10-15] MEDS: ASPIRIN 81 MG CHEW TAB PO SCH (09:44)
[2021-10-15] MEDS: FUROSEMIDE 40 MG TAB PO SCH (09:44)
[2021-10-15] MEDS: FOLIC ACID/CYANOCOB/PYRIDOXINE TAB PO SCH (09:44)
[2021-10-15] MEDS ORDERED: Vancomycin IV 1 GM in SODIUM CHLORIDE 0.9% 250ML 250 ML IV SCH (16:00)
[2021-10-15] MEDS: AZITHROMYCIN 250 MG TAB PO SCH (16:43)
[2021-10-16] VITALS (7 sets, daily range): BP systolic 104–136; BP diastolic 57–67
[2021-10-16] MEDS: ALBUTEROL/IPRATROPIUM 3 ML NEB NEB SCH ×3 (01:05→18:35)
[2021-10-16] MEDS: PIPERACILLIN/TAZOBACTAM 3.375 GM in SODIUM CHLORIDE 0.9% 50ML 50 ML IV SCH (05:38)
[2021-10-16] MEDS: GUAIFENESIN 600MG/DEXTROMETHORPHAN 30MG TABSR PO SCH ×3 (05:38→18:00)
[2021-10-16 05:50] LABS: BASOPHILS % 0.5 % (0.0-1.0); EOSINOPHILS # (AUTO) 0.1 (0.0-0.4); EOSINOPHILS % 1.9 % (0.0-6.0); HEMOGLOBIN 8.6 g/dL (12.0-16.0); LYMPHOCYTES # (AUTO) 0.4 (1.0-3.2); LYMPHOCYTES % 9.7 % (18.0-39.1); MEAN CORPUSCULAR HEMOGLOBIN 31.5 pg (28-32); MEAN CORPUSCULAR HGB CONC 31.9 g/dL (31-35); MEAN CORPUSCULAR VOLUME 98.9 fL (81-99); MONOCYTES # (AUTO) 0.4 (0.2-0.8); MONOCYTES % 11.1 % (4.4-11.3); NEUTROPHILS # (AUTO) 2.8 (2.1-6.9); NEUTROPHILS % 76.3 % (38.7-80.0); PLATELET COUNT 94 x10e3/uL (140-360); RED BLOOD COUNT 2.73 x10e6/uL (3.6-5.1); RED CELL DISTRIBUTION WIDTH 14.8 % (11.7-14.4)
[2021-10-16 06:05] LABS: ALBUMIN 2.6 g/dL (3.5-5.0); ALBUMIN/GLOBULIN RATIO 0.5 (0.8-2.0); ANION GAP 16.1 mmol/L (8-16); CALCIUM 8.2 mg/dL (8.4-10.2); CREATININE, SERUM 5.08 mg/dL (0.57-1.11); POTASSIUM 4.1 mmol/L (3.5-5.1)
[2021-10-16] MEDS: PANTOPRAZOLE SOD 40 MG TABEC PO SCH (07:30)
[2021-10-16] MEDS ORDERED: SODIUM CHLORIDE 0.9% 1000ML 1,000 ML ONE (07:37)
[2021-10-16] MEDS: DOXAZOSIN MESYLATE 2 MG TAB PO SCH ×2 (09:00→17:00)
[2021-10-16] MEDS: FUROSEMIDE 40 MG TAB PO SCH (09:00)
[2021-10-16] MEDS: FOLIC ACID/CYANOCOB/PYRIDOXINE TAB PO SCH (09:00)
[2021-10-16] MEDS: NIFEDIPINE CR 30 MG TAB PO SCH (09:00)
[2021-10-16] MEDS: ASPIRIN 81 MG CHEW TAB PO SCH (09:00)
[2021-10-16] MEDS: CARVEDILOL 12.5 MG TAB PO SCH ×2 (09:00→17:00)
[2021-10-16] MEDS ORDERED: SODIUM CHLORIDE 0.9% 1000ML 2,000 ML IV PRN (09:30)
[2021-10-16] MEDS: INSULIN GLARGINE 100 UNITS/ML VIAL SQ SCH ×2 (09:30→17:00)
[2021-10-16] MEDS ORDERED: EPOETIN ALFA-EPBX 10,000 UNIT/ML VIAL SC SCH (15:00)
[2021-10-17] VITALS (7 sets, daily range): BP systolic 101–147; BP diastolic 71–86
[2021-10-17] MEDS: ALBUTEROL/IPRATROPIUM 3 ML NEB NEB SCH ×5 (00:05→19:30)
[2021-10-17] MEDS: GUAIFENESIN 600MG/DEXTROMETHORPHAN 30MG TABSR PO SCH ×4 (00:12→18:00)
[2021-10-17] MEDS: CEFTRIAXONE 1 GM in SODIUM CHLORIDE 0.9% 50ML 50 ML IV SCH ×3 (00:12→21:18)
[2021-10-17 05:57] LABS: BASOPHILS % 0.6 % (0.0-1.0); EOSINOPHILS # (AUTO) 0.1 (0.0-0.4); EOSINOPHILS % 2.6 % (0.0-6.0); HEMATOCRIT 25.1 % (34.2-44.1); LYMPHOCYTES # (AUTO) 0.4 (1.0-3.2); LYMPHOCYTES % 10.3 % (18.0-39.1); MEAN CORPUSCULAR HEMOGLOBIN 31.3 pg (28-32); MEAN CORPUSCULAR HGB CONC 31.9 g/dL (31-35); MONOCYTES # (AUTO) 0.5 (0.2-0.8); NEUTROPHILS # (AUTO) 2.5 (2.1-6.9); NEUTROPHILS % 71.4 % (38.7-80.0); PLATELET COUNT 102 x10e3/uL (140-360); RED BLOOD COUNT 2.56 x10e6/uL (3.6-5.1); RED CELL DISTRIBUTION WIDTH 14.8 % (11.7-14.4)
[2021-10-17 06:22] LABS: ALBUMIN 2.5 g/dL (3.5-5.0); ALBUMIN/GLOBULIN RATIO 0.5 (0.8-2.0); ANION GAP 15.8 mmol/L (8-16); CALCIUM 8.1 mg/dL (8.4-10.2); CREATININE, SERUM 4.23 mg/dL (0.57-1.11); POTASSIUM 3.8 mmol/L (3.5-5.1)
[2021-10-17] MEDS: PANTOPRAZOLE SOD 40 MG TABEC PO SCH (08:00)
[2021-10-17] MEDS: DOXAZOSIN MESYLATE 2 MG TAB PO SCH ×2 (09:00→17:00)
[2021-10-17] MEDS: NIFEDIPINE CR 30 MG TAB PO SCH (09:00)
[2021-10-17] MEDS: INSULIN GLARGINE 100 UNITS/ML VIAL SQ SCH ×2 (09:00→17:00)
[2021-10-17] MEDS: CARVEDILOL 12.5 MG TAB PO SCH ×2 (09:00→17:00)
[2021-10-17] MEDS: FUROSEMIDE 40 MG TAB PO SCH (09:16)
[2021-10-17] MEDS: FOLIC ACID/CYANOCOB/PYRIDOXINE TAB PO SCH (09:16)
[2021-10-17] MEDS: ASPIRIN 81 MG CHEW TAB PO SCH (09:16)
[2021-10-18] VITALS (8 sets, daily range): BP systolic 104–155; BP diastolic 61–83
[2021-10-18] MEDS: ALBUTEROL/IPRATROPIUM 3 ML NEB NEB SCH ×4 (00:08→19:30)
[2021-10-18] MEDS: GUAIFENESIN 600MG/DEXTROMETHORPHAN 30MG TABSR PO SCH ×5 (05:06→18:00)
[2021-10-18] MEDS ORDERED: ERGOCALCIFEROL 50,000 UNIT CAP PO SCH (09:00)
[2021-10-18] MEDS: INSULIN GLARGINE 100 UNITS/ML VIAL SQ SCH ×2 (09:00→17:35)
[2021-10-18] MEDS: PANTOPRAZOLE SOD 40 MG TABEC PO SCH (10:00)
[2021-10-18] MEDS: CEFTRIAXONE 1 GM in SODIUM CHLORIDE 0.9% 50ML 50 ML IV SCH ×2 (10:00→20:56)
[2021-10-18] MEDS: ASPIRIN 81 MG CHEW TAB PO SCH (10:00)
[2021-10-18] MEDS: FOLIC ACID/CYANOCOB/PYRIDOXINE TAB PO SCH (10:01)
[2021-10-18] MEDS: DOXAZOSIN MESYLATE 2 MG TAB PO SCH ×3 (10:01→17:34)
[2021-10-18] MEDS: FUROSEMIDE 40 MG TAB PO SCH (10:01)
[2021-10-18] MEDS: CARVEDILOL 12.5 MG TAB PO SCH ×3 (10:01→17:35)
[2021-10-18] MEDS: NIFEDIPINE CR 30 MG TAB PO SCH (10:02)
[2021-10-18] MEDS ORDERED: SODIUM CHLORIDE 0.9% 250ML 250 ML ONE (10:29)
[2021-10-19] MEDS: ALBUTEROL/IPRATROPIUM 3 ML NEB NEB SCH ×3 (01:00→13:51)
[2021-10-19 04:55] VITALS: BP 115/59
[2021-10-19] MEDS: GUAIFENESIN 600MG/DEXTROMETHORPHAN 30MG TABSR PO SCH ×2 (06:00)
[2021-10-19 06:09] LABS: BASOPHILS % 0.3 % (0.0-1.0); EOSINOPHILS # (AUTO) 0.1 (0.0-0.4); EOSINOPHILS % 2.3 % (0.0-6.0); HEMATOCRIT 26.4 % (34.2-44.1); HEMOGLOBIN 8.4 g/dL (12.0-16.0); LYMPHOCYTES # (AUTO) 0.3 (1.0-3.2); LYMPHOCYTES % 10.4 % (18.0-39.1); MEAN CORPUSCULAR HEMOGLOBIN 31.7 pg (28-32); MEAN CORPUSCULAR HGB CONC 31.8 g/dL (31-35); MEAN CORPUSCULAR VOLUME 99.6 fL (81-99); MONOCYTES # (AUTO) 0.3 (0.2-0.8); MONOCYTES % 9.7 % (4.4-11.3); NEUTROPHILS # (AUTO) 2.3 (2.1-6.9); PLATELET COUNT 107 x10e3/uL (140-360); RED BLOOD COUNT 2.65 x10e6/uL (3.6-5.1); RED CELL DISTRIBUTION WIDTH 14.4 % (11.7-14.4)
[2021-10-19 06:45] LABS: ANION GAP 14.9 mmol/L (8-16); CREATININE, SERUM 5.36 mg/dL (0.57-1.11); MAGNESIUM 2.3 MG/DL (1.3-2.1); PHOSPHORUS 6.4 MG/DL (2.3-4.7); POTASSIUM 3.9 mmol/L (3.5-5.1)
[2021-10-19 08:08] VITALS: BP 133/65
[2021-10-19 08:13] VITALS: BP 133/65
[2021-10-19] MEDS: FUROSEMIDE 40 MG TAB PO SCH (08:45)
[2021-10-19] MEDS: FOLIC ACID/CYANOCOB/PYRIDOXINE TAB PO SCH (08:45)
[2021-10-19] MEDS: ASPIRIN 81 MG CHEW TAB PO SCH (08:45)
[2021-10-19] MEDS: PANTOPRAZOLE SOD 40 MG TABEC PO SCH (08:45)
[2021-10-19] MEDS: INSULIN GLARGINE 100 UNITS/ML VIAL SQ SCH (08:47)
[2021-10-19 11:46] VITALS: BP 121/68
[2021-10-19] MEDS ORDERED: CEFUROXIME500 MG PO (13:17)
== END 2021-10-19 15:46 | disposition home or self-care (01) | DRG 871 ==
LOC: ER 16:58 → ERHOLD 17:20 → MED/SURG3 10-13 21:32
PROVIDERS: ADMIT Internal Medicine; ATTEND Internal Medicine
PROC: 5A1D70Z Performance of Urinary Filtration, Intermittent, Less than 6 Hours Per Day (ICD-10-PCS; principal; 2021-10-13)
DX: A40.3 Sepsis due to Streptococcus pneumoniae (principal); N18.6 End stage renal disease; J18.9 Pneumonia, unspecified organism; J96.01 Acute respiratory failure with hypoxia; R65.20 Severe sepsis without septic shock; I12.0 Hypertensive chronic kidney disease with stage 5 chronic kidney disease or end stage renal disease; Z68.42 Body mass index [BMI] 45.0-49.9, adult; N39.0 Urinary tract infection, site not specified; N17.9 Acute kidney failure, unspecified; E87.70 Fluid overload, unspecified; E11.22 Type 2 diabetes mellitus with diabetic chronic kidney disease; Z99.2 Dependence on renal dialysis; Z91.15 Patient's noncompliance with renal dialysis; Z90.49 Acquired absence of other specified parts of digestive tract; Z88.8 Allergy status to other drugs, medicaments and biological substances; E66.01 Morbid (severe) obesity due to excess calories; Z20.822 Contact with and (suspected) exposure to COVID-19; L89.312 Pressure ulcer of right buttock, stage 2
CPT/HCPCS: 36415; 51700; 71045; 80048; 80053; 81001; 82140; 82550; 82553; 82948; 83605; 83735; 83880; 84100; 84484; 85025; 86704; 86705; 86706; 87040; 87071; 87086; 87186; 87205; 87340; 93306; 94640; 94660; 94799; 97139; 99251; 99285; J0456; J0696; J1940; J2543; J3370; J7030; J7040; J7050; U0002

== ENCOUNTER 2021-11-24 21:13 | Inpatient (IN) | payer MEDICARE, OTHER ==
[~2021-11-24] VITALS: Ht 167.6 cm; Wt 136.1 kg
[~2021-11-24 21:13] MED LIST changes: +CEFUROXIME500 MG PO
[2021-11-24 21:51] LABS: BASOPHILS % 0.2 % (0.0-1.0); EOSINOPHILS # (AUTO) 0.2 (0.0-0.4); EOSINOPHILS % 5.2 % (0.0-6.0); HEMOGLOBIN 9.2 g/dL (12.0-16.0); LYMPHOCYTES # (AUTO) 0.8 (1.0-3.2); LYMPHOCYTES % 19.8 % (18.0-39.1); MEAN CORPUSCULAR HEMOGLOBIN 32.3 pg (28-32); MEAN CORPUSCULAR HGB CONC 31.7 g/dL (31-35); MEAN CORPUSCULAR VOLUME 101.8 fL (81-99); MONOCYTES # (AUTO) 0.3 (0.2-0.8); MONOCYTES % 7.2 % (4.4-11.3); NEUTROPHILS # (AUTO) 2.7 (2.1-6.9); NEUTROPHILS % 67.1 % (38.7-80.0); PLATELET COUNT 102 x10e3/uL (140-360); RED BLOOD COUNT 2.85 x10e6/uL (3.6-5.1); RED CELL DISTRIBUTION WIDTH 15.9 % (11.7-14.4)
[2021-11-24 21:56] LABS: CLARITY,URINE CLEAR (CLEAR); COLOR,URINE STRAW (YELLOW); KETONES,URINE NEGATIVE (NEGATIVE); LEUKOCYTE ESTERASE ,URINE NEGATIVE (NEGATIVE); NITRITE,URINE NEGATIVE (NEGATIVE); PROTEIN,URINE DIPSTICK >=300 (NEGATIVE); URINE UROBILINOGEN 4 mg/dL (0.2 - 1)
[2021-11-24 22:05] LABS: ALBUMIN 3.4 g/dL (3.5-5.0); ALBUMIN/GLOBULIN RATIO 0.7 (0.8-2.0); ANION GAP 19.7 mmol/L (8-16); CALCIUM 8.3 mg/dL (8.4-10.2); CREATININE, SERUM 5.13 mg/dL (0.57-1.11); POTASSIUM 4.7 mmol/L (3.5-5.1)
[2021-11-24 22:06] LABS: BACTERIA,URINE MODERATE /HPF
[2021-11-24 22:07] LABS: CREATINE KINASE MB 1.2 ng/mL (0-5.0)
[2021-11-24 23:25] LABS: AMPHETAMINES SCREEN,URINE NEGATIVE (NEGATIVE); PHENCYCLIDINE SCREEN,URINE NEGATIVE (NEGATIVE)
[2021-11-24 23:26] LABS: BENZODIAZEPINES SCREEN,URINE NEGATIVE (NEGATIVE)
[2021-11-25] VITALS (10 sets, daily range): BP systolic 108–152; BP diastolic 55–75
[2021-11-25] MEDS ORDERED: ONDANSETRON HCL INJ 2MG/ML 2ML 2 MG/ML VIAL IV PRN (00:45)
[2021-11-25] MEDS ORDERED: DEXTROSE 50% SYRINGE 50 ML IV PRN (00:45)
[2021-11-25] MEDS: LACTULOSE SYRUP 20 GM/30 ML UDC PO PRN (00:51)
[2021-11-25 06:17] LABS: CREATINE KINASE MB 1.6 ng/mL (0-5.0)
[2021-11-25] MEDS: INSULIN REGULAR, HUMAN 100 UNIT/1 ML SQ SCH ×4 (07:30→21:08)
[2021-11-25] MEDS ORDERED: SODIUM CHLORIDE 0.9% 1000ML 2,000 ML ONE (09:26)
[2021-11-25] MEDS ORDERED: SODIUM CHLORIDE 0.9% 250ML 500 ML IV PRN (11:00)
[2021-11-25] MEDS ORDERED: ALBUMIN 25% 12.5GM 0.25 GM/ML BTL IV PRN (11:00)
[2021-11-25] MEDS ORDERED: SODIUM CHLORIDE 0.9% 1000ML 2,000 ML IV PRN (11:00)
[2021-11-25] MEDS ORDERED: Vancomycin IV 1 GM in SODIUM CHLORIDE 0.9% 250ML 250 ML IV SCH (13:00)
[2021-11-25 16:47] LABS: CREATINE KINASE MB 1.4 ng/mL (0-5.0)
[2021-11-25] MEDS: CARVEDILOL 12.5 MG TAB PO SCH (17:00)
[2021-11-25] MEDS: RIFAXIMIN 550 MG TABLET PO SCH (17:00)
[2021-11-25] MEDS: Vancomycin IV 1 GM in SODIUM CHLORIDE 0.9% 250ML 250 ML IV SCH (20:24)
[2021-11-26] VITALS (7 sets, daily range): BP systolic 95–118; BP diastolic 50–93
[2021-11-26] MEDS: LACTULOSE SYRUP 20 GM/30 ML UDC PO PRN (00:59)
[2021-11-26 01:23] LABS: % IRON SATURATION 40 % (15-50); IRON 103 ug/dL (50-170); TOTAL IRON BINDING CAPACITY 255 ug/dL (261-478); TRANSFERRIN 182 mg/dL (180-382)
[2021-11-26 05:13] LABS: BASOPHILS % 0.3 % (0.0-1.0); EOSINOPHILS # (AUTO) 0.1 (0.0-0.4); EOSINOPHILS % 3.3 % (0.0-6.0); HEMATOCRIT 26.3 % (34.2-44.1); HEMOGLOBIN 8.3 g/dL (12.0-16.0); LYMPHOCYTES # (AUTO) 0.7 (1.0-3.2); LYMPHOCYTES % 19.9 % (18.0-39.1); MEAN CORPUSCULAR HEMOGLOBIN 32.8 pg (28-32); MEAN CORPUSCULAR HGB CONC 31.6 g/dL (31-35); MONOCYTES # (AUTO) 0.3 (0.2-0.8); NEUTROPHILS # (AUTO) 2.2 (2.1-6.9); NEUTROPHILS % 67.2 % (38.7-80.0); PLATELET COUNT 89 x10e3/uL (140-360); RED BLOOD COUNT 2.53 x10e6/uL (3.6-5.1); RED CELL DISTRIBUTION WIDTH 15.8 % (11.7-14.4)
[2021-11-26 05:31] LABS: INR 1.11; PROTHROMBIN TIME 15.1 seconds (11.9-14.5)
[2021-11-26 05:42] LABS: ALBUMIN 3.1 g/dL (3.5-5.0); ALBUMIN/GLOBULIN RATIO 0.7 (0.8-2.0); ANION GAP 16.4 mmol/L (8-16); CALCIUM 8.3 mg/dL (8.4-10.2); CREATININE, SERUM 3.98 mg/dL (0.57-1.11); POTASSIUM 4.4 mmol/L (3.5-5.1)
[2021-11-26] MEDS: INSULIN REGULAR, HUMAN 100 UNIT/1 ML SQ SCH ×4 (07:30→21:00)
[2021-11-26] MEDS: CARVEDILOL 12.5 MG TAB PO SCH ×2 (09:08→17:02)
[2021-11-26] MEDS: NIFEDIPINE CR 30 MG TAB PO SCH (09:08)
[2021-11-26] MEDS: PANTOPRAZOLE SOD 40 MG TABEC PO SCH (09:10)
[2021-11-26] MEDS: FUROSEMIDE 40 MG TAB PO SCH ×2 (09:10→12:09)
[2021-11-26] MEDS: RIFAXIMIN 550 MG TABLET PO SCH ×2 (09:10→17:02)
[2021-11-26] MEDS: Vancomycin IV 1 GM in SODIUM CHLORIDE 0.9% 250ML 250 ML IV SCH ×2 (09:25→21:02)
[2021-11-26] MEDS: LACTULOSE SYRUP 20 GM/30 ML UDC PO SCH ×2 (10:00→17:02)
[2021-11-26] MEDS ORDERED: ONDANSETRON HCL 4 MG ORAL DISINTEGRATING TAB PO PRN (10:30)
[2021-11-26] MEDS ORDERED: ENOXAPARIN 30 MG/0.3 ML SYR SC ONE (21:15)
[2021-11-27] VITALS (8 sets, daily range): BP systolic 92–145; BP diastolic 38–71
[2021-11-27 06:49] LABS: BASOPHILS % 0.3 % (0.0-1.0); EOSINOPHILS # (AUTO) 0.3 (0.0-0.4); EOSINOPHILS % 7.6 % (0.0-6.0); HEMATOCRIT 27.9 % (34.2-44.1); LYMPHOCYTES # (AUTO) 0.6 (1.0-3.2); LYMPHOCYTES % 15.7 % (18.0-39.1); MEAN CORPUSCULAR HEMOGLOBIN 33.2 pg (28-32); MEAN CORPUSCULAR HGB CONC 32.3 g/dL (31-35); MONOCYTES # (AUTO) 0.4 (0.2-0.8); NEUTROPHILS # (AUTO) 2.4 (2.1-6.9); NEUTROPHILS % 66.1 % (38.7-80.0); PLATELET COUNT 99 x10e3/uL (140-360); RED BLOOD COUNT 2.71 x10e6/uL (3.6-5.1); RED CELL DISTRIBUTION WIDTH 15.8 % (11.7-14.4)
[2021-11-27 07:21] LABS: ALBUMIN 3.2 g/dL (3.5-5.0); ALBUMIN/GLOBULIN RATIO 0.7 (0.8-2.0); ANION GAP 17.3 mmol/L (8-16); CALCIUM 8.1 mg/dL (8.4-10.2); CREATININE, SERUM 4.89 mg/dL (0.57-1.11); POTASSIUM 4.3 mmol/L (3.5-5.1)
[2021-11-27] MEDS: INSULIN REGULAR, HUMAN 100 UNIT/1 ML SQ SCH ×4 (07:30→21:50)
[2021-11-27] MEDS ORDERED: FAMOTIDINE 20 MG TAB PO ONE (09:00)
[2021-11-27] MEDS: NIFEDIPINE CR 30 MG TAB PO SCH (09:00)
[2021-11-27] MEDS: CARVEDILOL 12.5 MG TAB PO SCH ×2 (09:00→16:11)
[2021-11-27] MEDS: Vancomycin IV 1 GM in SODIUM CHLORIDE 0.9% 250ML 250 ML IV SCH ×2 (09:40→20:00)
[2021-11-27] MEDS: LACTULOSE SYRUP 20 GM/30 ML UDC PO SCH ×2 (09:41→16:11)
[2021-11-27] MEDS: RIFAXIMIN 550 MG TABLET PO SCH ×2 (09:42→16:11)
[2021-11-27] MEDS: PANTOPRAZOLE SOD 40 MG TABEC PO SCH (09:42)
[2021-11-27] MEDS ORDERED: HYDROCORTISONE 2.5% CREAM 30GM TUBE TOP PRN (10:00)
[2021-11-27] MEDS: ENOXAPARIN 30 MG/0.3 ML SYR SC SCH ×2 (16:13→16:54)
[2021-11-28] VITALS (8 sets, daily range): BP systolic 116–139; BP diastolic 60–73
[2021-11-28] MEDS ORDERED: LACTULOSE SYRUP 20 GM/30 ML UDC PO ONE (00:15)
[2021-11-28 05:52] LABS: ALBUMIN 3.1 g/dL (3.5-5.0); ALBUMIN/GLOBULIN RATIO 0.7 (0.8-2.0); CALCIUM 7.5 mg/dL (8.4-10.2); CREATININE, SERUM 5.59 mg/dL (0.57-1.11)
[2021-11-28 06:33] LABS: BASOPHILS % 0.7 % (0.0-1.0); EOSINOPHILS # (AUTO) 0.4 (0.0-0.4); EOSINOPHILS % 8.7 % (0.0-6.0); HEMATOCRIT 27.9 % (34.2-44.1); HEMOGLOBIN 8.8 g/dL (12.0-16.0); LYMPHOCYTES # (AUTO) 0.7 (1.0-3.2); LYMPHOCYTES % 17.3 % (18.0-39.1); MEAN CORPUSCULAR HGB CONC 31.5 g/dL (31-35); MEAN CORPUSCULAR VOLUME 104.5 fL (81-99); MONOCYTES # (AUTO) 0.3 (0.2-0.8); MONOCYTES % 7.4 % (4.4-11.3); NEUTROPHILS # (AUTO) 2.6 (2.1-6.9); NEUTROPHILS % 65.4 % (38.7-80.0); PLATELET COUNT 95 x10e3/uL (140-360); RED BLOOD COUNT 2.67 x10e6/uL (3.6-5.1); RED CELL DISTRIBUTION WIDTH 16.2 % (11.7-14.4)
[2021-11-28] MEDS: INSULIN REGULAR, HUMAN 100 UNIT/1 ML SQ SCH ×4 (07:30→20:58)
[2021-11-28] MEDS: Vancomycin IV 1 GM in SODIUM CHLORIDE 0.9% 250ML 250 ML IV SCH (07:55)
[2021-11-28] MEDS: CARVEDILOL 12.5 MG TAB PO SCH ×2 (07:55→17:00)
[2021-11-28] MEDS: NIFEDIPINE CR 30 MG TAB PO SCH (07:55)
[2021-11-28] MEDS: LACTULOSE SYRUP 20 GM/30 ML UDC PO SCH ×2 (08:05→17:16)
[2021-11-28] MEDS: PANTOPRAZOLE SOD 40 MG TABEC PO SCH (08:06)
[2021-11-28] MEDS: FUROSEMIDE 40 MG TAB PO SCH (08:06)
[2021-11-28] MEDS: RIFAXIMIN 550 MG TABLET PO SCH ×2 (08:06→17:16)
[2021-11-28] MEDS: ENOXAPARIN 30 MG/0.3 ML SYR SC SCH (17:16)
[2021-11-28] MEDS ORDERED: CEFEPIME HCL 1 GM VIAL ONE (21:21)
[2021-11-28] MEDS: CEFEPIME 1 GM in SODIUM CHLORIDE 0.9% 50ML 50 ML IV SCH (22:30)
[2021-11-29] VITALS (7 sets, daily range): BP systolic 105–133; BP diastolic 51–73
[2021-11-29 05:51] LABS: BASOPHILS % 0.6 % (0.0-1.0); EOSINOPHILS # (AUTO) 0.3 (0.0-0.4); EOSINOPHILS % 8.6 % (0.0-6.0); HEMATOCRIT 25.7 % (34.2-44.1); HEMOGLOBIN 8.3 g/dL (12.0-16.0); LYMPHOCYTES # (AUTO) 0.6 (1.0-3.2); MEAN CORPUSCULAR HEMOGLOBIN 32.7 pg (28-32); MEAN CORPUSCULAR HGB CONC 32.3 g/dL (31-35); MEAN CORPUSCULAR VOLUME 101.2 fL (81-99); MONOCYTES # (AUTO) 0.4 (0.2-0.8); MONOCYTES % 10.6 % (4.4-11.3); NEUTROPHILS # (AUTO) 2.2 (2.1-6.9); NEUTROPHILS % 63.9 % (38.7-80.0); PLATELET COUNT 90 x10e3/uL (140-360); RED BLOOD COUNT 2.54 x10e6/uL (3.6-5.1); RED CELL DISTRIBUTION WIDTH 15.9 % (11.7-14.4)
[2021-11-29 06:05] LABS: ALBUMIN 3.1 g/dL (3.5-5.0); ALBUMIN/GLOBULIN RATIO 0.7 (0.8-2.0); ANION GAP 16.9 mmol/L (8-16); CREATININE, SERUM 5.78 mg/dL (0.57-1.11); POTASSIUM 3.9 mmol/L (3.5-5.1)
[2021-11-29] MEDS: INSULIN REGULAR, HUMAN 100 UNIT/1 ML SQ SCH ×4 (07:30→21:00)
[2021-11-29] MEDS ORDERED: EPOETIN ALFA-EPBX 10,000 UNIT/ML VIAL SC SCH (08:30)
[2021-11-29] MEDS: FUROSEMIDE 40 MG TAB PO SCH (08:53)
[2021-11-29] MEDS: CEFEPIME 1 GM in SODIUM CHLORIDE 0.9% 50ML 50 ML IV SCH (08:53)
[2021-11-29] MEDS: CARVEDILOL 12.5 MG TAB PO SCH ×2 (08:53→17:00)
[2021-11-29] MEDS: LACTULOSE SYRUP 20 GM/30 ML UDC PO SCH ×3 (08:53→21:05)
[2021-11-29] MEDS: PANTOPRAZOLE SOD 40 MG TABEC PO SCH (08:54)
[2021-11-29] MEDS: RIFAXIMIN 550 MG TABLET PO SCH ×2 (08:54→18:29)
[2021-11-29] MEDS: NIFEDIPINE CR 30 MG TAB PO SCH (08:54)
[2021-11-29] MEDS: ENOXAPARIN 30 MG/0.3 ML SYR SC SCH (18:29)
[2021-11-30] VITALS: BP 103/63
[2021-11-30 03:55] VITALS: BP 118/70
[2021-11-30 05:39] LABS: BASOPHILS % 0.8 % (0.0-1.0); EOSINOPHILS # (AUTO) 0.3 (0.0-0.4); HEMATOCRIT 24.6 % (34.2-44.1); HEMOGLOBIN 8.1 g/dL (12.0-16.0); LYMPHOCYTES # (AUTO) 0.4 (1.0-3.2); LYMPHOCYTES % 11.3 % (18.0-39.1); MEAN CORPUSCULAR HEMOGLOBIN 32.8 pg (28-32); MEAN CORPUSCULAR HGB CONC 32.9 g/dL (31-35); MEAN CORPUSCULAR VOLUME 99.6 fL (81-99); MONOCYTES # (AUTO) 0.4 (0.2-0.8); MONOCYTES % 10.7 % (4.4-11.3); NEUTROPHILS # (AUTO) 2.6 (2.1-6.9); NEUTROPHILS % 69.9 % (38.7-80.0); PLATELET COUNT 95 x10e3/uL (140-360); RED BLOOD COUNT 2.47 x10e6/uL (3.6-5.1); RED CELL DISTRIBUTION WIDTH 15.9 % (11.7-14.4)
[2021-11-30 06:12] LABS: ALBUMIN 2.9 g/dL (3.5-5.0); ALBUMIN/GLOBULIN RATIO 0.7 (0.8-2.0); CALCIUM 7.5 mg/dL (8.4-10.2); CREATININE, SERUM 6.06 mg/dL (0.57-1.11)
[2021-11-30 07:57] VITALS: BP 129/71
[2021-11-30 08:00] VITALS: BP 129/71
[2021-11-30] MEDS: RIFAXIMIN 550 MG TABLET PO SCH (08:43)
[2021-11-30] MEDS: FUROSEMIDE 40 MG TAB PO SCH (08:43)
[2021-11-30] MEDS: INSULIN REGULAR, HUMAN 100 UNIT/1 ML SQ SCH (08:43)
[2021-11-30] MEDS: CARVEDILOL 12.5 MG TAB PO SCH (08:43)
[2021-11-30] MEDS: PANTOPRAZOLE SOD 40 MG TABEC PO SCH (08:43)
[2021-11-30] MEDS: NIFEDIPINE CR 30 MG TAB PO SCH (08:43)
[2021-11-30] MEDS: LACTULOSE SYRUP 20 GM/30 ML UDC PO SCH (08:43)
[2021-11-30] MEDS ORDERED: XIFAXAN550 MG PO (09:56)
[2021-11-30] MEDS ORDERED: AUGMENTIN 500-1 EACH PO (09:57)
[2021-11-30] MEDS ORDERED: LACTULOSE20 GM/30 M PO (11:41)
[2021-11-30 12:00] VITALS: BP 112/61
[2021-12-01] MEDS ORDERED: CEFEPIME 1 GM in SODIUM CHLORIDE 0.9% 50ML 50 ML IV SCH (09:00)
== END 2021-11-30 11:35 | disposition home or self-care (01) | DRG 441 ==
LOC: ER 21:29 → ERHOLD 11-25 00:38 → MED/SURG 11-25 02:12
PROVIDERS: ADMIT Internal Medicine; ATTEND Internal Medicine
PROC: 3E1M39Z Irrigation of Peritoneal Cavity using Dialysate, Percutaneous Approach (ICD-10-PCS; principal; 2021-11-25)
DX: K72.90 Hepatic failure, unspecified without coma (principal); N18.6 End stage renal disease; I12.0 Hypertensive chronic kidney disease with stage 5 chronic kidney disease or end stage renal disease; Z68.42 Body mass index [BMI] 45.0-49.9, adult; L03.116 Cellulitis of left lower limb; L03.115 Cellulitis of right lower limb; K75.81 Nonalcoholic steatohepatitis (NASH); Z99.2 Dependence on renal dialysis; E11.22 Type 2 diabetes mellitus with diabetic chronic kidney disease; K74.60 Unspecified cirrhosis of liver; L89.150 Pressure ulcer of sacral region, unstageable; R60.0 Localized edema; Z20.822 Contact with and (suspected) exposure to COVID-19; E66.01 Morbid (severe) obesity due to excess calories; I87.2 Venous insufficiency (chronic) (peripheral)
CPT/HCPCS: 36415; 70450; 71046; 76705; 80053; 80202; 80307; 81001; 82140; 82550; 82553; 82607; 82746; 82948; 83036; 83540; 84466; 84484; 85025; 85045; 85610; 86039; 86255; 86705; 86706; 87040; 87086; 87340; 90962; 93005; 93306; 93970; 94799; 96372; 99251; 99284; J0692; J1650; J1817; J2405; J3370; J7030; J7050; U0002

== ENCOUNTER 2022-02-28 13:17 | Emergency (ER) | payer MEDICARE, OTHER ==
[~2022-02-28] VITALS: Ht 167.6 cm; Wt 136.1 kg
[~2022-02-28 13:17] MED LIST changes: +AUGMENTIN 500-1 EACH PO; +XIFAXAN550 MG PO
[2022-02-28 14:28] LABS: BASOPHILS % 0.7 % (0.0-1.0); EOSINOPHILS # (AUTO) 0.4 (0.0-0.4); EOSINOPHILS % 9.1 % (0.0-6.0); HEMATOCRIT 31.5 % (34.2-44.1); HEMOGLOBIN 10.3 g/dL (12.0-16.0); LYMPHOCYTES # (AUTO) 0.9 (1.0-3.2); LYMPHOCYTES % 21.2 % (18.0-39.1); MEAN CORPUSCULAR HEMOGLOBIN 33.2 pg (28-32); MEAN CORPUSCULAR HGB CONC 32.7 g/dL (31-35); MEAN CORPUSCULAR VOLUME 101.6 fL (81-99); MONOCYTES # (AUTO) 0.4 (0.2-0.8); MONOCYTES % 8.7 % (4.4-11.3); NEUTROPHILS # (AUTO) 2.6 (2.1-6.9); NEUTROPHILS % 60.1 % (38.7-80.0); PLATELET COUNT 114 x10e3/uL (140-360); RED CELL DISTRIBUTION WIDTH 14.6 % (11.7-14.4)
[2022-02-28 14:42] LABS: INR 0.99
[2022-02-28 14:43] LABS: PARTIAL THROMBOPLASTIN TIME 38.3 seconds (23.8-35.5)
[2022-02-28 14:50] LABS: ALBUMIN 2.5 g/dL (3.5-5.0); ALBUMIN/GLOBULIN RATIO 0.6 (0.8-2.0); ANION GAP 16.7 mmol/L (8-16); CALCIUM 7.5 mg/dL (8.4-10.2); CREATININE, SERUM 6.86 mg/dL (0.57-1.11); MAGNESIUM 2.4 MG/DL (1.3-2.1); POTASSIUM 3.7 mmol/L (3.5-5.1)
[2022-02-28 15:30] LABS: CLARITY,URINE SL CLOUDY (CLEAR); COLOR,URINE STRAW (YELLOW); KETONES,URINE TRACE (NEGATIVE); LEUKOCYTE ESTERASE ,URINE NEGATIVE (NEGATIVE); NITRITE,URINE NEGATIVE (NEGATIVE); PROTEIN,URINE DIPSTICK 2+ (NEGATIVE); URINE UROBILINOGEN 0.2 mg/dL (0.2 - 1)
[2022-02-28 15:36] LABS: BACTERIA,URINE MODERATE /HPF; EPITHELIAL CELLS,URINE MODERATE /LPF
[2022-02-28] MEDS ORDERED: LACTULOSE SYRUP 20 GM/30 ML UDC PO ONE (16:00)
[2022-02-28 16:49] VITALS: BP 108/62
== END 2022-02-28 17:20 | disposition home or self-care (01) ==
LOC: ER 13:30
DX: R41.0 Disorientation, unspecified (principal); K72.90 Hepatic failure, unspecified without coma; I12.0 Hypertensive chronic kidney disease with stage 5 chronic kidney disease or end stage renal disease; E11.22 Type 2 diabetes mellitus with diabetic chronic kidney disease; N18.6 End stage renal disease; Z99.2 Dependence on renal dialysis; I50.9 Heart failure, unspecified; R94.31 Abnormal electrocardiogram [ECG] [EKG]
CPT/HCPCS: 36415; 70450; 71045; 80053; 81001; 82140; 82550; 82553; 83735; 83880; 84484; 85025; 85610; 85730; 87086; 93005; 99284; U0002

== ENCOUNTER 2022-04-01 16:55 | Inpatient (IN) | payer MEDICARE, OTHER ==
[~2022-04-01] VITALS: Ht 167.6 cm; Wt 141.2 kg
[2022-04-01] MEDS ORDERED: ACETAMINOPHEN 325 MG TAB PO ONE (17:30)
[2022-04-01 18:02] LABS: BASOPHILS % 0.3 % (0.0-1.0); EOSINOPHILS # (AUTO) 0.2 (0.0-0.4); EOSINOPHILS % 3.2 % (0.0-6.0); HEMATOCRIT 26.8 % (34.2-44.1); HEMOGLOBIN 8.7 g/dL (12.0-16.0); LYMPHOCYTES # (AUTO) 0.6 (1.0-3.2); LYMPHOCYTES % 7.8 % (18.0-39.1); MEAN CORPUSCULAR HEMOGLOBIN 33.3 pg (28-32); MEAN CORPUSCULAR HGB CONC 32.5 g/dL (31-35); MEAN CORPUSCULAR VOLUME 102.7 fL (81-99); MONOCYTES # (AUTO) 0.4 (0.2-0.8); MONOCYTES % 5.1 % (4.4-11.3); NEUTROPHILS # (AUTO) 6.1 (2.1-6.9); NEUTROPHILS % 83.3 % (38.7-80.0); PLATELET COUNT 96 x10e3/uL (140-360); RED BLOOD COUNT 2.61 x10e6/uL (3.6-5.1); RED CELL DISTRIBUTION WIDTH 14.9 % (11.7-14.4)
[2022-04-01 18:05] LABS: ALBUMIN 2.2 g/dL (3.5-5.0); ALBUMIN/GLOBULIN RATIO 0.5 (0.8-2.0); ANION GAP 17.7 mmol/L (8-16); CALCIUM 7.1 mg/dL (8.4-10.2); CREATININE, SERUM 7.42 mg/dL (0.57-1.11); POTASSIUM 3.7 mmol/L (3.5-5.1)
[2022-04-01] MEDS ORDERED: SODIUM CHLORIDE 0.9% 1000ML 1,000 ML IV ONE (20:15)
[2022-04-01] MEDS ORDERED: SODIUM CHLORIDE 0.9% 500ML 500 ML ONE (20:26)
[2022-04-01] MEDS ORDERED: Vancomycin IV 1 GM in SODIUM CHLORIDE 0.9% 250ML 250 ML IV ONE (21:15)
[2022-04-01] MEDS ORDERED: ONDANSETRON HCL INJ 2MG/ML 2ML 2 MG/ML VIAL IV PRN (23:45)
[2022-04-01] MEDS ORDERED: DEXTROSE 50% SYRINGE 50 ML IV PRN (23:45)
[2022-04-01] MEDS ORDERED: SODIUM CHLORIDE FLUSH 10 ML SYR INJ PRN (23:45)
[2022-04-02] VITALS (11 sets, daily range): BP systolic 85–112; BP diastolic 48–67
[2022-04-02] MEDS: ACETAMINOPHEN 325 MG TAB PO PRN ×2 (05:30→17:06)
[2022-04-02 06:33] LABS: BASOPHILS % 0.3 % (0.0-1.0); EOSINOPHILS # (AUTO) 0.3 (0.0-0.4); EOSINOPHILS % 4.1 % (0.0-6.0); HEMATOCRIT 23.5 % (34.2-44.1); HEMOGLOBIN 7.6 g/dL (12.0-16.0); LYMPHOCYTES # (AUTO) 0.6 (1.0-3.2); MEAN CORPUSCULAR HEMOGLOBIN 33.3 pg (28-32); MEAN CORPUSCULAR HGB CONC 32.3 g/dL (31-35); MEAN CORPUSCULAR VOLUME 103.1 fL (81-99); MONOCYTES # (AUTO) 0.4 (0.2-0.8); MONOCYTES % 6.9 % (4.4-11.3); NEUTROPHILS # (AUTO) 4.8 (2.1-6.9); NEUTROPHILS % 78.4 % (38.7-80.0); PLATELET COUNT 81 x10e3/uL (140-360); RED BLOOD COUNT 2.28 x10e6/uL (3.6-5.1); RED CELL DISTRIBUTION WIDTH 15.2 % (11.7-14.4)
[2022-04-02 07:00] LABS: ALBUMIN/GLOBULIN RATIO 0.5 (0.8-2.0); ANION GAP 18.5 mmol/L (8-16); CREATININE, SERUM 7.66 mg/dL (0.57-1.11); POTASSIUM 3.5 mmol/L (3.5-5.1)
[2022-04-02 07:15] LABS: CALCIUM 6.9 mg/dL (8.4-10.2)
[2022-04-02] MEDS: INSULIN REGULAR, HUMAN 100 UNIT/1 ML SQ SCH ×3 (08:15→16:30)
[2022-04-02] MEDS ORDERED: EPOETIN ALFA-EPBX 10,000 UNIT/ML VIAL SC ONE (10:00)
[2022-04-02] MEDS: OYST-CAL-D 500MG TABLET PO SCH (10:26)
[2022-04-02] MEDS ORDERED: HYDRALAZINE HCL 20 MG/ML VIAL IV PRN (12:00)
[2022-04-02] MEDS ORDERED: ONDANSETRON HCL INJ 2MG/ML 2ML 2 MG/ML VIAL IV PRN (12:00)
[2022-04-02] MEDS ORDERED: LACTULOSE20 GM/30 M PO (12:29)
[2022-04-02] MEDS ORDERED: COLACE100 MG/10 PO (12:29)
[2022-04-02] MEDS ORDERED: CALCITRIOL0.25 MCG PO (12:29)
[2022-04-02] MEDS ORDERED: CALCIUM ACETAT667 M1 PO (12:29)
[2022-04-02] MEDS ORDERED: CLEOCIN HCL150 MG PO (12:29)
[2022-04-02] MEDS ORDERED: DEXTROSE 50% SYRINGE 50 ML IV PRN (12:45)
[2022-04-02] MEDS ORDERED: MINERAL OIL/PETROLAT/GLYCERI 6OZ BTL TOP PRN (13:00)
[2022-04-02] MEDS: LACTULOSE SYRUP 20 GM/30 ML UDC PO SCH ×2 (14:26→23:20)
[2022-04-02] MEDS: INSULIN LISPRO 100 UNIT/1 ML 3ML VIAL SQ SCH ×2 (16:38→21:00)
[2022-04-02] MEDS: RIFAXIMIN 550 MG TABLET PO SCH (16:46)
[2022-04-02] MEDS: ENOXAPARIN 30 MG/0.3 ML SYR SC SCH (16:59)
[2022-04-02] MEDS ORDERED: CARVEDILOL 12.5 MG TAB PO SCH (17:00)
[2022-04-02] MEDS ORDERED: SODIUM CHLORIDE 0.9% 1000ML 1,000 ML IV ONE (21:00)
[2022-04-02] MEDS: INSULIN GLARGINE 100 UNITS/ML VIAL SQ SCH (21:00)
[2022-04-02] MEDS ORDERED: SODIUM CHLORIDE 0.9% 1000ML 1,000 ML ONE (21:10)
[2022-04-03] VITALS (9 sets, daily range): BP systolic 68–117; BP diastolic 44–66
[2022-04-03] MEDS: ACETAMINOPHEN 325 MG TAB PO PRN (06:07)
[2022-04-03 06:25] LABS: BASOPHILS % 0.5 % (0.0-1.0); EOSINOPHILS # (AUTO) 0.2 (0.0-0.4); EOSINOPHILS % 5.6 % (0.0-6.0); HEMATOCRIT 24.8 % (34.2-44.1); LYMPHOCYTES # (AUTO) 0.5 (1.0-3.2); LYMPHOCYTES % 12.5 % (18.0-39.1); MEAN CORPUSCULAR HEMOGLOBIN 33.1 pg (28-32); MEAN CORPUSCULAR HGB CONC 32.3 g/dL (31-35); MEAN CORPUSCULAR VOLUME 102.5 fL (81-99); MONOCYTES # (AUTO) 0.3 (0.2-0.8); MONOCYTES % 7.7 % (4.4-11.3); NEUTROPHILS # (AUTO) 2.9 (2.1-6.9); NEUTROPHILS % 73.2 % (38.7-80.0); RED BLOOD COUNT 2.42 x10e6/uL (3.6-5.1); RED CELL DISTRIBUTION WIDTH 14.9 % (11.7-14.4)
[2022-04-03 06:30] LABS: PLATELET COUNT 76 x10e3/uL (140-360)
[2022-04-03 06:59] LABS: PHOSPHORUS 6.4 MG/DL (2.3-4.7)
[2022-04-03 07:01] LABS: ALBUMIN 2.1 g/dL (3.5-5.0); ALBUMIN/GLOBULIN RATIO 0.5 (0.8-2.0); ANION GAP 18.4 mmol/L (8-16); CHOL/HDL RATIO 4.1 (3.0-3.6); CREATININE, SERUM 7.42 mg/dL (0.57-1.11); MAGNESIUM 2.5 MG/DL (1.3-2.1); POTASSIUM 3.4 mmol/L (3.5-5.1)
[2022-04-03 07:05] LABS: THYROID STIMULATING HORMONE 4.4 uIU/mL (0.350-4.940)
[2022-04-03 07:06] LABS: FERRITIN 923.64 ng/mL (4.63-204.00)
[2022-04-03] MEDS: INSULIN LISPRO 100 UNIT/1 ML 3ML VIAL SQ SCH ×4 (08:37→21:00)
[2022-04-03] MEDS ORDERED: SODIUM CHLORIDE 0.9% 250ML 250 ML ONE (08:38)
[2022-04-03] MEDS: RIFAXIMIN 550 MG TABLET PO SCH ×2 (08:38→16:35)
[2022-04-03] MEDS: PANTOPRAZOLE SOD 40 MG TABEC PO SCH (08:38)
[2022-04-03] MEDS: FOLIC ACID/CYANOCOB/PYRIDOXINE TAB PO SCH (08:38)
[2022-04-03] MEDS: OYST-CAL-D 500MG TABLET PO SCH (08:38)
[2022-04-03] MEDS: LACTULOSE SYRUP 20 GM/30 ML UDC PO SCH ×3 (08:39→21:12)
[2022-04-03] MEDS: ASPIRIN 81 MG CHEW TAB PO SCH (08:39)
[2022-04-03] MEDS: FUROSEMIDE 40 MG TAB PO SCH (08:40)
[2022-04-03] MEDS: INSULIN GLARGINE 100 UNITS/ML VIAL SQ SCH ×2 (08:45→21:00)
[2022-04-03] MEDS: ERGOCALCIFEROL 50,000 UNIT CAP PO SCH (09:44)
[2022-04-03] MEDS: ENOXAPARIN 30 MG/0.3 ML SYR SC SCH (16:36)
[2022-04-04] VITALS (8 sets, daily range): BP systolic 96–118; BP diastolic 54–73
[2022-04-04 06:34] LABS: BASOPHILS % 0.6 % (0.0-1.0); EOSINOPHILS # (AUTO) 0.3 (0.0-0.4); EOSINOPHILS % 9.5 % (0.0-6.0); HEMATOCRIT 24.3 % (34.2-44.1); LYMPHOCYTES # (AUTO) 0.5 (1.0-3.2); LYMPHOCYTES % 14.6 % (18.0-39.1); MEAN CORPUSCULAR HEMOGLOBIN 33.6 pg (28-32); MEAN CORPUSCULAR HGB CONC 32.9 g/dL (31-35); MEAN CORPUSCULAR VOLUME 102.1 fL (81-99); MONOCYTES # (AUTO) 0.4 (0.2-0.8); MONOCYTES % 10.9 % (4.4-11.3); NEUTROPHILS # (AUTO) 2.2 (2.1-6.9); NEUTROPHILS % 63.3 % (38.7-80.0); PLATELET COUNT 94 x10e3/uL (140-360); RED BLOOD COUNT 2.38 x10e6/uL (3.6-5.1); RED CELL DISTRIBUTION WIDTH 14.9 % (11.7-14.4)
[2022-04-04 06:52] LABS: ANION GAP 17.3 mmol/L (8-16); CALCIUM 7.1 mg/dL (8.4-10.2); CREATININE, SERUM 7.4 mg/dL (0.57-1.11); MAGNESIUM 2.8 MG/DL (1.3-2.1); POTASSIUM 3.3 mmol/L (3.5-5.1)
[2022-04-04] MEDS: INSULIN LISPRO 100 UNIT/1 ML 3ML VIAL SQ SCH ×4 (07:30→21:37)
[2022-04-04] MEDS: PANTOPRAZOLE SOD 40 MG TABEC PO SCH (09:22)
[2022-04-04] MEDS: FOLIC ACID/CYANOCOB/PYRIDOXINE TAB PO SCH (09:22)
[2022-04-04] MEDS: OYST-CAL-D 500MG TABLET PO SCH (09:22)
[2022-04-04] MEDS: FUROSEMIDE 40 MG TAB PO SCH (09:22)
[2022-04-04] MEDS: RIFAXIMIN 550 MG TABLET PO SCH ×2 (09:22→16:33)
[2022-04-04] MEDS: ASPIRIN 81 MG CHEW TAB PO SCH (09:22)
[2022-04-04] MEDS: LACTULOSE SYRUP 20 GM/30 ML UDC PO SCH ×3 (09:23→21:22)
[2022-04-04] MEDS: INSULIN GLARGINE 100 UNITS/ML VIAL SQ SCH ×2 (09:41→21:36)
[2022-04-04] MEDS: ERGOCALCIFEROL 50,000 UNIT CAP PO SCH (09:48)
[2022-04-04] MEDS: EPOETIN ALFA-EPBX 10,000 UNIT/ML VIAL SC SCH (09:49)
[2022-04-04] MEDS ORDERED: EPOETIN ALFA-EPBX 10,000 UNIT/ML VIAL SC SCH (10:15)
[2022-04-04] MEDS ORDERED: POTASSIUM CHLORIDE 20 MEQ TAB CR PO ONE ×2 (10:45→12:30)
[2022-04-04] MEDS: ACETAMINOPHEN 325 MG TAB PO PRN (12:05)
[2022-04-04] MEDS ORDERED: Vancomycin IV 1 GM in SODIUM CHLORIDE 0.9% 250ML 250 ML IV ONE (12:30)
[2022-04-04] MEDS: ENOXAPARIN 30 MG/0.3 ML SYR SC SCH (16:33)
[2022-04-04] MEDS ORDERED: ESTROGENS CONJUGATED VAGINAL CR 45 GM TUBE PV SCH (20:00)
[2022-04-05] VITALS (8 sets, daily range): BP systolic 103–132; BP diastolic 51–82
[2022-04-05] MEDS: ACETAMINOPHEN 325 MG TAB PO PRN (01:51)
[2022-04-05] MEDS: RIFAXIMIN 550 MG TABLET PO SCH ×3 (09:00→16:43)
[2022-04-05 09:57] LABS: BASOPHILS % 0.6 % (0.0-1.0); EOSINOPHILS # (AUTO) 0.3 (0.0-0.4); EOSINOPHILS % 9.5 % (0.0-6.0); HEMATOCRIT 24.7 % (34.2-44.1); HEMOGLOBIN 8.2 g/dL (12.0-16.0); LYMPHOCYTES # (AUTO) 0.5 (1.0-3.2); LYMPHOCYTES % 14.9 % (18.0-39.1); MEAN CORPUSCULAR HEMOGLOBIN 33.6 pg (28-32); MEAN CORPUSCULAR HGB CONC 33.2 g/dL (31-35); MEAN CORPUSCULAR VOLUME 101.2 fL (81-99); MONOCYTES # (AUTO) 0.3 (0.2-0.8); MONOCYTES % 10.5 % (4.4-11.3); NEUTROPHILS % 63.5 % (38.7-80.0); PLATELET COUNT 92 x10e3/uL (140-360); RED BLOOD COUNT 2.44 x10e6/uL (3.6-5.1)
[2022-04-05] MEDS: FUROSEMIDE 40 MG TAB PO SCH (10:05)
[2022-04-05] MEDS: ASPIRIN 81 MG CHEW TAB PO SCH (10:05)
[2022-04-05] MEDS: FOLIC ACID/CYANOCOB/PYRIDOXINE TAB PO SCH (10:05)
[2022-04-05] MEDS: PANTOPRAZOLE SOD 40 MG TABEC PO SCH (10:05)
[2022-04-05] MEDS: LACTULOSE SYRUP 20 GM/30 ML UDC PO SCH ×3 (10:05→20:40)
[2022-04-05] MEDS: OYST-CAL-D 500MG TABLET PO SCH (10:06)
[2022-04-05] MEDS: INSULIN GLARGINE 100 UNITS/ML VIAL SQ SCH ×2 (10:35→21:06)
[2022-04-05] MEDS: INSULIN LISPRO 100 UNIT/1 ML 3ML VIAL SQ SCH ×4 (10:35→21:06)
[2022-04-05] MEDS: ENOXAPARIN 30 MG/0.3 ML SYR SC SCH (17:29)
[2022-04-05] MEDS ORDERED: ESTROGENS CONJUGATED VAGINAL CR 45 GM TUBE PV SCH (18:30)
[2022-04-05] MEDS ORDERED: BISACODYL 10 MG SUPP PR PRN (19:45)
[2022-04-05] MEDS ORDERED: BISACODYL 5 MG TAB EC PO ONE (20:00)
[2022-04-06 00:35] VITALS: BP 105/54
[2022-04-06 05:38] VITALS: BP 120/53
[2022-04-06 07:12] LABS: BASOPHILS % 0.5 % (0.0-1.0); EOSINOPHILS # (AUTO) 0.3 (0.0-0.4); HEMATOCRIT 25.4 % (34.2-44.1); HEMOGLOBIN 8.2 g/dL (12.0-16.0); LYMPHOCYTES # (AUTO) 0.6 (1.0-3.2); LYMPHOCYTES % 16.2 % (18.0-39.1); MEAN CORPUSCULAR HEMOGLOBIN 34.3 pg (28-32); MEAN CORPUSCULAR HGB CONC 32.3 g/dL (31-35); MEAN CORPUSCULAR VOLUME 106.3 fL (81-99); MONOCYTES # (AUTO) 0.3 (0.2-0.8); MONOCYTES % 8.1 % (4.4-11.3); NEUTROPHILS # (AUTO) 2.5 (2.1-6.9); NEUTROPHILS % 66.9 % (38.7-80.0); PLATELET COUNT 96 x10e3/uL (140-360); RED BLOOD COUNT 2.39 x10e6/uL (3.6-5.1); RED CELL DISTRIBUTION WIDTH 15.3 % (11.7-14.4)
[2022-04-06 07:37] LABS: ALBUMIN/GLOBULIN RATIO 0.5 (0.8-2.0); ANION GAP 16.8 mmol/L (8-16); CALCIUM 7.1 mg/dL (8.4-10.2); CREATININE, SERUM 7.04 mg/dL (0.57-1.11); MAGNESIUM 2.3 MG/DL (1.3-2.1); PHOSPHORUS 5.4 MG/DL (2.3-4.7); POTASSIUM 3.8 mmol/L (3.5-5.1)
[2022-04-06 08:05] LABS: PLATELET ESTIMATE MODERATELY DECREASED; PLATELET MORPHOLOGY COMMENT NORMAL; RBC MORPHOLOGY COMMENT ABNORMAL
[2022-04-06] MEDS: INSULIN GLARGINE 100 UNITS/ML VIAL SQ SCH (08:25)
[2022-04-06] MEDS: INSULIN LISPRO 100 UNIT/1 ML 3ML VIAL SQ SCH ×3 (08:25→17:01)
[2022-04-06] MEDS: LACTULOSE SYRUP 20 GM/30 ML UDC PO SCH ×2 (08:28→15:51)
[2022-04-06] MEDS: OYST-CAL-D 500MG TABLET PO SCH (08:29)
[2022-04-06] MEDS: FOLIC ACID/CYANOCOB/PYRIDOXINE TAB PO SCH (08:29)
[2022-04-06] MEDS: FUROSEMIDE 40 MG TAB PO SCH (08:29)
[2022-04-06] MEDS: ASPIRIN 81 MG CHEW TAB PO SCH (08:29)
[2022-04-06] MEDS: RIFAXIMIN 550 MG TABLET PO SCH ×2 (08:29→16:49)
[2022-04-06] MEDS: PANTOPRAZOLE SOD 40 MG TABEC PO SCH (08:29)
[2022-04-06 08:31] VITALS: BP 105/46
[2022-04-06 09:00] VITALS: BP 105/46
[2022-04-06] MEDS: EPOETIN ALFA-EPBX 10,000 UNIT/ML VIAL SC SCH (10:35)
[2022-04-06 12:55] VITALS: BP 131/67
[2022-04-06] MEDS ORDERED: ONDANSETRON HCL 4 MG ORAL DISINTEGRATING TAB PO PRN (14:30)
[2022-04-06] MEDS ORDERED: ESTROGENS CONJUGATED PV (14:51)
[2022-04-06] MEDS ORDERED: MINERAL OIL TOP (14:51)
[2022-04-06] MEDS ORDERED: Calcium Carbonate PO (14:51)
[2022-04-06] MEDS ORDERED: GLYCERI TOP (14:51)
[2022-04-06] MEDS ORDERED: PETROLAT TOP (14:51)
[2022-04-06] MEDS ORDERED: RETACRIT10000 UNIT SC (14:51)
[2022-04-06] MEDS ORDERED: ACETAMINOPHEN325 M1 PO (14:51)
[2022-04-06 15:33] VITALS: BP 110/54
[2022-04-06] MEDS ORDERED: DULCOLAX10 MG PR (15:34)
[2022-04-06] MEDS ORDERED: DULCOLAX STOOL100 MG PO (15:34)
[2022-04-06] MEDS ORDERED: BISACODYL5 MG PO (15:34)
[2022-04-06] MEDS: ENOXAPARIN 30 MG/0.3 ML SYR SC SCH (16:49)
[2022-04-08] MEDS ORDERED: DOXYCYCLINE HY100 MG PO (13:10)
== END 2022-04-06 17:59 | disposition home or self-care (01) | DRG 602 ==
LOC: ER 17:21 → ERHOLD 23:40 → MED/SURG2 04-02 00:30
PROVIDERS: ADMIT Internal Medicine; ATTEND Internal Medicine
PROC: 3E1M39Z Irrigation of Peritoneal Cavity using Dialysate, Percutaneous Approach (ICD-10-PCS; principal; 2022-04-02)
DX: L03.116 Cellulitis of left lower limb (principal); N18.6 End stage renal disease; N25.81 Secondary hyperparathyroidism of renal origin; I13.2 Hypertensive heart and chronic kidney disease with heart failure and with stage 5 chronic kidney disease, or end stage renal disease; Z68.43 Body mass index [BMI] 50.0-59.9, adult; L03.311 Cellulitis of abdominal wall; E87.1 Hypo-osmolality and hyponatremia; I50.42 Chronic combined systolic (congestive) and diastolic (congestive) heart failure; E83.51 Hypocalcemia; D63.8 Anemia in other chronic diseases classified elsewhere; E83.39 Other disorders of phosphorus metabolism; I87.2 Venous insufficiency (chronic) (peripheral); E11.22 Type 2 diabetes mellitus with diabetic chronic kidney disease; K74.69 Other cirrhosis of liver; E11.42 Type 2 diabetes mellitus with diabetic polyneuropathy; E11.43 Type 2 diabetes mellitus with diabetic autonomic (poly)neuropathy; E66.01 Morbid (severe) obesity due to excess calories; L03.115 Cellulitis of right lower limb; E11.65 Type 2 diabetes mellitus with hyperglycemia; E87.6 Hypokalemia; E78.5 Hyperlipidemia, unspecified; K21.9 Gastro-esophageal reflux disease without esophagitis; K31.84 Gastroparesis; H26.9 Unspecified cataract; E83.42 Hypomagnesemia; N95.2 Postmenopausal atrophic vaginitis; K59.00 Constipation, unspecified; Z99.2 Dependence on renal dialysis; Z79.4 Long term (current) use of insulin; Z88.8 Allergy status to other drugs, medicaments and biological substances; Z20.822 Contact with and (suspected) exposure to COVID-19; Z90.49 Acquired absence of other specified parts of digestive tract; Z82.49 Family history of ischemic heart disease and other diseases of the circulatory system; Z80.8 Family history of malignant neoplasm of other organs or systems; Z83.3 Family history of diabetes mellitus
CPT/HCPCS: 36415; 71045; 76705; 80048; 80053; 80061; 82140; 82728; 82948; 83540; 83605; 83735; 84100; 84443; 84466; 85025; 87040; 93925; 93970; 94799; 96372; 97139; 99284; J0692; J1650; J1815; J1817; J3370; J7030; J7040; J7050

== ENCOUNTER 2022-05-08 12:21 | Emergency (ER) | payer MEDICARE, OTHER ==
[~2022-05-08] VITALS: Ht 167.6 cm; Wt 140.6 kg
[~2022-05-08 12:21] MED LIST changes: +ACETAMINOPHEN325 M1 PO; +BISACODYL5 MG PO; +CALCITRIOL0.25 MCG PO; +CALCIUM ACETAT667 M1 PO; +CLEOCIN HCL150 MG PO; +COLACE100 MG/10 PO; +Calcium Carbonate PO; +DULCOLAX STOOL100 MG PO; +DULCOLAX10 MG PR; +ESTROGENS CONJUGATED PV; +GLYCERI TOP; +MINERAL OIL TOP; +PETROLAT TOP; +RETACRIT10000 UNIT SC
[2022-05-08 13:15] LABS: BASOPHILS % 0.4 % (0.0-1.0); EOSINOPHILS # (AUTO) 0.2 (0.0-0.4); EOSINOPHILS % 4.3 % (0.0-6.0); HEMATOCRIT 24.2 % (34.2-44.1); HEMOGLOBIN 8.1 g/dL (12.0-16.0); LYMPHOCYTES # (AUTO) 0.5 (1.0-3.2); LYMPHOCYTES % 9.5 % (18.0-39.1); MEAN CORPUSCULAR HEMOGLOBIN 33.3 pg (28-32); MEAN CORPUSCULAR HGB CONC 33.5 g/dL (31-35); MEAN CORPUSCULAR VOLUME 99.6 fL (81-99); MONOCYTES # (AUTO) 0.2 (0.2-0.8); MONOCYTES % 4.5 % (4.4-11.3); NEUTROPHILS # (AUTO) 4.2 (2.1-6.9); NEUTROPHILS % 81.1 % (38.7-80.0); RED BLOOD COUNT 2.43 x10e6/uL (3.6-5.1); RED CELL DISTRIBUTION WIDTH 14.3 % (11.7-14.4)
[2022-05-08 13:18] LABS: PLATELET COUNT 59 x10e3/uL (140-360)
[2022-05-08 13:28] LABS: INR 0.99
[2022-05-08 13:29] LABS: ALANINE AMINOTRANSFERASE 40 IU/L (0-55); ALBUMIN 2.3 g/dL (3.5-5.0); ALBUMIN/GLOBULIN RATIO 0.5 (0.8-2.0); ALKALINE PHOSPHATASE 76 IU/L (40-150); ANION GAP 18.1 mmol/L (8-16); BLOOD UREA NITROGEN 62 mg/dL (7-26); BUN/CREATININE RATIO 7 (6-25); CALCIUM 7.7 mg/dL (8.4-10.2); CARBON DIOXIDE 23 mmol/L (22-29); CHLORIDE 97 mmol/L (98-107); CREATINE KINASE 40 IU/L (29-168); CREATININE, SERUM 8.58 mg/dL (0.57-1.11); GLUCOSE 124 mg/dL (74-118); PARTIAL THROMBOPLASTIN TIME 37.2 seconds (23.8-35.5); POTASSIUM 3.1 mmol/L (3.5-5.1); SODIUM 135 mmol/L (136-145)
[2022-05-08] MEDS ORDERED: SODIUM CHLORIDE 0.9% 500ML 500 ML IV ONE (14:30)
[2022-05-08 15:37] LABS: CLARITY,URINE HAZY (CLEAR); COLOR,URINE AMBER (YELLOW); KETONES,URINE 1+ (NEGATIVE); LEUKOCYTE ESTERASE ,URINE TRACE (NEGATIVE); NITRITE,URINE NEGATIVE (NEGATIVE); PROTEIN,URINE DIPSTICK 1+ (NEGATIVE); URINE UROBILINOGEN 0.2 mg/dL (0.2 - 1)
[2022-05-08 15:41] LABS: AMORPHOUS SEDIMENT,URINE FEW (FEW); BACTERIA,URINE MODERATE /HPF; EPITHELIAL CELLS,URINE MODERATE /LPF; MUCUS,URINE FEW (RARE); RBC,URINE 21-50 /HPF (0-5); YEAST,URINE FEW
[2022-05-08 16:41] VITALS: BP 114/52
== END 2022-05-08 16:42 | disposition home or self-care (01) ==
LOC: ER 12:33
DX: R53.1 Weakness (principal); N39.0 Urinary tract infection, site not specified; I12.0 Hypertensive chronic kidney disease with stage 5 chronic kidney disease or end stage renal disease; E11.22 Type 2 diabetes mellitus with diabetic chronic kidney disease; N18.6 End stage renal disease; Z99.2 Dependence on renal dialysis; I50.9 Heart failure, unspecified
CPT/HCPCS: 0223U; 36415; 71045; 80053; 81001; 82550; 82553; 83880; 84484; 85025; 85610; 85730; 87040; 87086; 93005; 99284; J0696; J7040; 87186

== ENCOUNTER 2022-05-22 14:14 | Inpatient (IN) | payer MEDICARE, OTHER ==
[2022-05-22] VITALS (13 sets, daily range): BP systolic 81–124; BP diastolic 36–112
[~2022-05-22] VITALS: Ht 167.6 cm; Wt 137.0 kg
[~2022-05-22 14:14] MED LIST changes: -HUMALOG KW200 UNIT/1; +HUMALOG KW200 UNIT/1 SQ
[2022-05-22 14:59] LABS: BASOPHILS % 0.1 % (0.0-1.0); EOSINOPHILS # (AUTO) 0.1 (0.0-0.4); EOSINOPHILS % 1.1 % (0.0-6.0); LYMPHOCYTES # (AUTO) 0.3 (1.0-3.2); LYMPHOCYTES % 4.3 % (18.0-39.1); MEAN CORPUSCULAR HEMOGLOBIN 33.2 pg (28-32); MEAN CORPUSCULAR HGB CONC 33.8 g/dL (31-35); MONOCYTES # (AUTO) 0.5 (0.2-0.8); MONOCYTES % 6.7 % (4.4-11.3); NEUTROPHILS # (AUTO) 6.1 (2.1-6.9); NEUTROPHILS % 86.9 % (38.7-80.0); PLATELET COUNT 92 x10e3/uL (140-360); RED BLOOD COUNT 1.99 x10e6/uL (3.6-5.1)
[2022-05-22 15:01] LABS: HEMATOCRIT 19.5 % (34.2-44.1); HEMOGLOBIN 6.6 g/dL (12.0-16.0)
[2022-05-22] MEDS ORDERED: ACETAMINOPHEN 325 MG TAB PO STA (15:02)
[2022-05-22 15:06] LABS: INR 1.08
[2022-05-22 15:14] LABS: ALBUMIN 2.6 g/dL (3.5-5.0); ALBUMIN/GLOBULIN RATIO 0.7 (0.8-2.0); CALCIUM 8.1 mg/dL (8.4-10.2); CREATININE, SERUM 9.62 mg/dL (0.57-1.11); MAGNESIUM 2.2 MG/DL (1.3-2.1)
[2022-05-22] MEDS ORDERED: SODIUM CHLORIDE 0.9% 250ML 250 ML IV ONE (15:15)
[2022-05-22] MEDS ORDERED: FUROSEMIDE INJ 10 MG/ML 2 ML VIAL IV PRN (15:15)
[2022-05-22] MEDS ORDERED: DIPHENHYDRAMINE HCL INJ 50 MG/ML VIAL IV ONE (15:15)
[2022-05-22] MEDS ORDERED: FAMOTIDINE 20 MG/2 ML VIAL IV ONE (15:15)
[2022-05-22 15:23] LABS: CREATINE KINASE MB 0.8 ng/mL (0-5.0)
[2022-05-22] MEDS ORDERED: SODIUM CHLORIDE 0.9% 500ML 500 ML IV ONE (15:30)
[2022-05-22] MEDS ORDERED: Vancomycin IV 1 GM in SODIUM CHLORIDE 0.9% 250ML 250 ML IV ONE (15:30)
[2022-05-22 15:46] LABS: ANISOCYTOSIS SLIGHT; BAND NEUTROPHILS % (MANUAL) 1 %; HYPOCHROMASIA SLIGHT; LYMPHOCYTES % (MANUAL) 9 % (19-48); MONOCYTES % (MANUAL) 5 % (3.4-9.0); NEUTROPHILS % (MANUAL) 85 % (40-74); PLATELET ESTIMATE SLIGHTLY DECREASED; PLATELET MORPHOLOGY COMMENT NORMAL
[2022-05-22 15:58] LABS: CLARITY,URINE HAZY (CLEAR); COLOR,URINE YELLOW (YELLOW); KETONES,URINE 1+ (NEGATIVE); LEUKOCYTE ESTERASE ,URINE TRACE (NEGATIVE); NITRITE,URINE NEGATIVE (NEGATIVE); PROTEIN,URINE DIPSTICK 1+ (NEGATIVE); URINE UROBILINOGEN 0.2 mg/dL (0.2 - 1)
[2022-05-22 16:03] LABS: AMORPHOUS SEDIMENT,URINE FEW (FEW); BACTERIA,URINE FEW /HPF; EPITHELIAL CELLS,URINE MODERATE /LPF; HYALINE CASTS 0-1 (0-1); MUCUS,URINE FEW (RARE); YEAST,URINE FEW
[2022-05-22] MEDS ORDERED: ONDANSETRON HCL INJ 2MG/ML 2ML 2 MG/ML VIAL IV PRN (16:45)
[2022-05-22] MEDS ORDERED: BISACODYL 10 MG SUPP PR PRN (16:45)
[2022-05-22] MEDS ORDERED: DEXTROSE 50% SYRINGE 50 ML IV PRN (17:00)
[2022-05-22] MEDS ORDERED: SODIUM CHLORIDE 0.9% 250ML 250 ML ONE (19:03)
[2022-05-22] MEDS: ACETAMINOPHEN 325 MG TAB PO PRN (20:45)
[2022-05-22] MEDS: INSULIN REGULAR, HUMAN 100 UNIT/1 ML SQ SCH (21:18)
[2022-05-22] MEDS: INSULIN GLARGINE 100 UNITS/ML VIAL SQ SCH (21:19)
[2022-05-22 21:26] LABS: BODY FLUID APPEARANCE CLEAR; BODY FLUID COLOR YELLOW; BODY FLUID TYPE PERITONEAL; RBC,BODY FLUID 0 cells/uL; WBC,BODY FLUID 0.539 cells/uL
[2022-05-22 21:36] LABS: EOSINOPHILS,BODY FLUID 2 %; LYMPHOCYTES,BODY FLUID 15 %; MONO/MACROPHG,BODY FLUID 45 %; NEUTROPHILS,BODY FLUID 38 %
[2022-05-23] VITALS (52 sets, daily range): BP systolic 73–124; BP diastolic 32–106
[2022-05-23 06:57] LABS: BASOPHILS % 0.2 % (0.0-1.0); EOSINOPHILS # (AUTO) 0.1 (0.0-0.4); EOSINOPHILS % 0.9 % (0.0-6.0); LYMPHOCYTES # (AUTO) 0.5 (1.0-3.2); LYMPHOCYTES % 9.2 % (18.0-39.1); MEAN CORPUSCULAR HEMOGLOBIN 32.1 pg (28-32); MEAN CORPUSCULAR HGB CONC 34.7 g/dL (31-35); MEAN CORPUSCULAR VOLUME 92.7 fL (81-99); MONOCYTES # (AUTO) 0.4 (0.2-0.8); MONOCYTES % 7.5 % (4.4-11.3); NEUTROPHILS # (AUTO) 4.5 (2.1-6.9); NEUTROPHILS % 81.8 % (38.7-80.0); PLATELET COUNT 72 x10e3/uL (140-360); RED BLOOD COUNT 2.18 x10e6/uL (3.6-5.1); RED CELL DISTRIBUTION WIDTH 15.9 % (11.7-14.4)
[2022-05-23 07:06] LABS: HEMATOCRIT 20.2 % (34.2-44.1)
[2022-05-23 07:19] LABS: ALBUMIN 2.1 g/dL (3.5-5.0); ALBUMIN/GLOBULIN RATIO 0.6 (0.8-2.0); ANION GAP 17.9 mmol/L (8-16); CALCIUM 7.4 mg/dL (8.4-10.2); CREATININE, SERUM 9.99 mg/dL (0.57-1.11)
[2022-05-23 07:23] LABS: POTASSIUM 2.9 mmol/L (3.5-5.1)
[2022-05-23] MEDS: INSULIN REGULAR, HUMAN 100 UNIT/1 ML SQ SCH ×4 (07:30→21:07)
[2022-05-23] MEDS ORDERED: SODIUM CHLORIDE 0.9% 250ML 250 ML IV ONE (09:00)
[2022-05-23] MEDS ORDERED: POTASSIUM CHLORIDE 20MEQ/100ML 100 ML IV ONE ×2 (09:30→11:30)
[2022-05-23] MEDS: ASPIRIN 81 MG CHEW TAB PO SCH (10:38)
[2022-05-23] MEDS: PANTOPRAZOLE SOD 40 MG TABEC PO SCH (10:38)
[2022-05-23] MEDS: DOCUSATE SODIUM 100 MG CAP PO SCH (10:38)
[2022-05-23 12:14] LABS: % IRON SATURATION 24 % (15-50); IRON 43 ug/dL (50-170); TOTAL IRON BINDING CAPACITY 179 ug/dL (261-478); TRANSFERRIN 128 mg/dL (180-382)
[2022-05-23] MEDS ORDERED: SODIUM CHLORIDE 0.9% 1000ML 2,000 ML ONE (15:50)
[2022-05-23] MEDS ORDERED: SODIUM CHLORIDE 0.9% 1000ML 2,000 ML IV PRN (16:45)
[2022-05-23] MEDS: EPOETIN ALFA-EPBX 10,000 UNIT/ML VIAL SC SCH (19:32)
[2022-05-23] MEDS: INSULIN GLARGINE 100 UNITS/ML VIAL SQ SCH (21:07)
[2022-05-23] MEDS: ACETAMINOPHEN 325 MG TAB PO PRN (22:17)
[2022-05-24] VITALS (26 sets, daily range): BP systolic 76–160; BP diastolic 41–79
[2022-05-24 06:50] LABS: BASOPHILS % 0.5 % (0.0-1.0); EOSINOPHILS # (AUTO) 0.3 (0.0-0.4); EOSINOPHILS % 7.3 % (0.0-6.0); HEMOGLOBIN 7.5 g/dL (12.0-16.0); LYMPHOCYTES # (AUTO) 0.5 (1.0-3.2); LYMPHOCYTES % 11.6 % (18.0-39.1); MEAN CORPUSCULAR HEMOGLOBIN 32.3 pg (28-32); MEAN CORPUSCULAR HGB CONC 34.7 g/dL (31-35); MEAN CORPUSCULAR VOLUME 93.1 fL (81-99); MONOCYTES # (AUTO) 0.5 (0.2-0.8); MONOCYTES % 11.8 % (4.4-11.3); NEUTROPHILS % 68.6 % (38.7-80.0); PLATELET COUNT 70 x10e3/uL (140-360); RED BLOOD COUNT 2.32 x10e6/uL (3.6-5.1); RED CELL DISTRIBUTION WIDTH 16.2 % (11.7-14.4)
[2022-05-24] MEDS: ACETAMINOPHEN 325 MG TAB PO PRN ×2 (07:05→21:39)
[2022-05-24 07:13] LABS: HEMATOCRIT 21.6 % (34.2-44.1)
[2022-05-24 07:15] LABS: ALBUMIN/GLOBULIN RATIO 0.6 (0.8-2.0); ANION GAP 15.1 mmol/L (8-16); CALCIUM 7.1 mg/dL (8.4-10.2); CREATININE, SERUM 6.62 mg/dL (0.57-1.11); POTASSIUM 3.1 mmol/L (3.5-5.1)
[2022-05-24] MEDS: INSULIN REGULAR, HUMAN 100 UNIT/1 ML SQ SCH ×4 (07:30→20:55)
[2022-05-24] MEDS ORDERED: POTASSIUM CHLORIDE 20 MEQ TAB CR PO ONE (08:30)
[2022-05-24] MEDS: PANTOPRAZOLE SOD 40 MG TABEC PO SCH (08:31)
[2022-05-24] MEDS: FLUOCINONIDE 0.05% 1 EA/15 GM TUBE TOP SCH ×2 (08:31→16:48)
[2022-05-24] MEDS: ASPIRIN 81 MG CHEW TAB PO SCH (08:31)
[2022-05-24] MEDS: BALSAM PERU/CASTOR OIL 60 GM OINT...G. TP SCH (08:31)
[2022-05-24] MEDS: DOCUSATE SODIUM 100 MG CAP PO SCH (08:31)
[2022-05-24] MEDS: IRON SUCROSE 100 MG in SODIUM CHLORIDE 0.9% 100 ML IV SCH (09:27)
[2022-05-24] MEDS ORDERED: SODIUM CHLORIDE 0.9% 250ML 250 ML IV ONE (10:30)
[2022-05-24] MEDS ORDERED: MEROPENEM 500 MG VIAL ONE (20:40)
[2022-05-24] MEDS: INSULIN GLARGINE 100 UNITS/ML VIAL SQ SCH (20:54)
[2022-05-25] VITALS (14 sets, daily range): BP systolic 91–127; BP diastolic 43–76
[2022-05-25 06:26] LABS: BASOPHILS % 0.2 % (0.0-1.0); EOSINOPHILS # (AUTO) 0.5 (0.0-0.4); EOSINOPHILS % 10.6 % (0.0-6.0); HEMATOCRIT 27.4 % (34.2-44.1); HEMOGLOBIN 9.1 g/dL (12.0-16.0); LYMPHOCYTES # (AUTO) 0.5 (1.0-3.2); LYMPHOCYTES % 11.5 % (18.0-39.1); MEAN CORPUSCULAR HGB CONC 33.2 g/dL (31-35); MEAN CORPUSCULAR VOLUME 96.5 fL (81-99); MONOCYTES # (AUTO) 0.5 (0.2-0.8); MONOCYTES % 12.2 % (4.4-11.3); NEUTROPHILS # (AUTO) 2.9 (2.1-6.9); NEUTROPHILS % 65.3 % (38.7-80.0); PLATELET COUNT 73 x10e3/uL (140-360); RED BLOOD COUNT 2.84 x10e6/uL (3.6-5.1); RED CELL DISTRIBUTION WIDTH 15.9 % (11.7-14.4)
[2022-05-25 06:40] LABS: ALBUMIN 2.2 g/dL (3.5-5.0); ALBUMIN/GLOBULIN RATIO 0.6 (0.8-2.0); ANION GAP 15.4 mmol/L (8-16); CALCIUM 7.4 mg/dL (8.4-10.2); CREATININE, SERUM 4.6 mg/dL (0.57-1.11); POTASSIUM 3.4 mmol/L (3.5-5.1)
[2022-05-25] MEDS: INSULIN REGULAR, HUMAN 100 UNIT/1 ML SQ SCH ×4 (07:30→20:34)
[2022-05-25 07:36] LABS: BAND NEUTROPHILS % (MANUAL) 1 %; EOSINOPHILS % (MANUAL) 6 % (0-7); LYMPHOCYTES % (MANUAL) 17 % (19-48); MONOCYTES % (MANUAL) 6 % (3.4-9.0); NEUTROPHILS % (MANUAL) 69 % (40-74); PLATELET MORPHOLOGY COMMENT NORMAL
[2022-05-25 07:37] LABS: PLATELET ESTIMATE SLIGHTLY DECREASED
[2022-05-25 07:38] LABS: ANISOCYTOSIS SLIGHT
[2022-05-25] MEDS: FLUOCINONIDE 0.05% 1 EA/15 GM TUBE TOP SCH ×2 (09:00→17:00)
[2022-05-25] MEDS: PANTOPRAZOLE SOD 40 MG TABEC PO SCH (09:03)
[2022-05-25] MEDS: ASPIRIN 81 MG CHEW TAB PO SCH (09:03)
[2022-05-25] MEDS: BALSAM PERU/CASTOR OIL 60 GM OINT...G. TP SCH (09:04)
[2022-05-25] MEDS: DOCUSATE SODIUM 100 MG CAP PO SCH (09:04)
[2022-05-25] MEDS: IRON SUCROSE 100 MG in SODIUM CHLORIDE 0.9% 100 ML IV SCH (09:04)
[2022-05-25] MEDS ORDERED: MEROPENEM 500 MG VIAL ONE (09:14)
[2022-05-25] MEDS ORDERED: SODIUM CHLORIDE 0.9% 100 ML ONE (09:14)
[2022-05-25] MEDS: EPOETIN ALFA-EPBX 10,000 UNIT/ML VIAL SC SCH (12:30)
[2022-05-25] MEDS ORDERED: PROPOFOL IV EMULSION 10 MG/ML 20 ML VIAL ONE (12:43)
[2022-05-25] MEDS ORDERED: MIDAZOLAM HCL 2 MG/2 ML VIAL ONE (13:11)
[2022-05-25] MEDS ORDERED: FENTANYL CITRATE/PF 100MCG/2 ML INJ ONE (13:11)
[2022-05-25] MEDS: INSULIN GLARGINE 100 UNITS/ML VIAL SQ SCH (20:33)
[2022-05-25] MEDS ORDERED: SODIUM CHLORIDE 0.9% 250ML 250 ML ONE (20:55)
[2022-05-26 05:32] VITALS: BP 96/67
[2022-05-26 05:54] LABS: BASOPHILS % 0.6 % (0.0-1.0); EOSINOPHILS # (AUTO) 0.4 (0.0-0.4); EOSINOPHILS % 8.7 % (0.0-6.0); HEMATOCRIT 29.6 % (34.2-44.1); HEMOGLOBIN 10.1 g/dL (12.0-16.0); LYMPHOCYTES # (AUTO) 0.6 (1.0-3.2); LYMPHOCYTES % 12.5 % (18.0-39.1); MEAN CORPUSCULAR HEMOGLOBIN 32.3 pg (28-32); MEAN CORPUSCULAR HGB CONC 34.1 g/dL (31-35); MEAN CORPUSCULAR VOLUME 94.6 fL (81-99); MONOCYTES # (AUTO) 0.5 (0.2-0.8); MONOCYTES % 11.3 % (4.4-11.3); NEUTROPHILS # (AUTO) 3.1 (2.1-6.9); NEUTROPHILS % 66.5 % (38.7-80.0); PLATELET COUNT 95 x10e3/uL (140-360); RED BLOOD COUNT 3.13 x10e6/uL (3.6-5.1)
[2022-05-26 06:21] LABS: ANION GAP 16.3 mmol/L (8-16); CALCIUM 7.6 mg/dL (8.4-10.2); CREATININE, SERUM 5.47 mg/dL (0.57-1.11); POTASSIUM 3.3 mmol/L (3.5-5.1)
[2022-05-26 08:00] VITALS: BP 107/55
[2022-05-26] MEDS ORDERED: SODIUM CHLORIDE 0.9% 0 ML ONE (08:01)
[2022-05-26] MEDS: PANTOPRAZOLE SOD 40 MG TABEC PO SCH (08:15)
[2022-05-26] MEDS: ASPIRIN 81 MG CHEW TAB PO SCH (08:16)
[2022-05-26] MEDS: DOCUSATE SODIUM 100 MG CAP PO SCH (08:16)
[2022-05-26 08:50] VITALS: BP 96/67
[2022-05-26] MEDS: BALSAM PERU/CASTOR OIL 60 GM OINT...G. TP SCH (09:00)
[2022-05-26] MEDS: FLUOCINONIDE 0.05% 1 EA/15 GM TUBE TOP SCH ×2 (09:00→16:37)
[2022-05-26] MEDS: INSULIN REGULAR, HUMAN 100 UNIT/1 ML SQ SCH ×4 (09:27→22:54)
[2022-05-26] MEDS: IRON SUCROSE 100 MG in SODIUM CHLORIDE 0.9% 100 ML IV SCH (10:02)
[2022-05-26 11:48] VITALS: BP 109/61
[2022-05-26] MEDS: FLUCONAZOLE 100 MG TAB PO SCH (14:50)
[2022-05-26 16:24] VITALS: BP 108/70
[2022-05-26 21:06] VITALS: BP 97/58
[2022-05-26] MEDS: INSULIN GLARGINE 100 UNITS/ML VIAL SQ SCH (22:52)
[2022-05-27 01:07] VITALS: BP 109/63
[2022-05-27 05:43] VITALS: BP 98/58
[2022-05-27] MEDS: INSULIN REGULAR, HUMAN 100 UNIT/1 ML SQ SCH ×2 (07:30→12:19)
[2022-05-27 08:18] VITALS: BP 102/71
[2022-05-27] MEDS ORDERED: SODIUM CHLORIDE 0.9% 100 ML ONE (08:35)
[2022-05-27 08:44] VITALS: BP 102/71
[2022-05-27] MEDS: ASPIRIN 81 MG CHEW TAB PO SCH (09:00)
[2022-05-27] MEDS: BALSAM PERU/CASTOR OIL 60 GM OINT...G. TP SCH (09:00)
[2022-05-27] MEDS: FLUOCINONIDE 0.05% 1 EA/15 GM TUBE TOP SCH (09:00)
[2022-05-27] MEDS: FLUCONAZOLE 100 MG TAB PO SCH (09:00)
[2022-05-27] MEDS: PANTOPRAZOLE SOD 40 MG TABEC PO SCH (09:01)
[2022-05-27] MEDS: DOCUSATE SODIUM 100 MG CAP PO SCH (09:01)
[2022-05-27] MEDS: IRON SUCROSE 100 MG in SODIUM CHLORIDE 0.9% 100 ML IV SCH (09:09)
[2022-05-27 11:50] VITALS: BP 120/65
[2022-05-27] MEDS: EPOETIN ALFA-EPBX 10,000 UNIT/ML VIAL SC SCH (12:19)
[2022-05-27] MEDS ORDERED: DIFLUCAN100 MG PO (13:01)
[2022-06-01] MEDS ORDERED: EPOGEN10000 UNIT SQ (15:08)
== END 2022-05-27 16:10 | disposition home or self-care (01) | DRG 871 ==
LOC: ER 14:44 → ERHOLD 16:42 → ICU 18:00 → MED/SURG3 05-25 15:09
PROVIDERS: ADMIT Internal Medicine; ATTEND Internal Medicine
PROC: 02HV33Z Insertion of Infusion Device into Superior Vena Cava, Percutaneous Approach (ICD-10-PCS; 2022-05-22)
PROC: 3E04329 Introduction of Other Anti-infective into Central Vein, Percutaneous Approach (ICD-10-PCS; 2022-05-22)
PROC: 30243N1 Transfusion of Nonautologous Red Blood Cells into Central Vein, Percutaneous Approach (ICD-10-PCS; 2022-05-22)
PROC: 3E1M39Z Irrigation of Peritoneal Cavity using Dialysate, Percutaneous Approach (ICD-10-PCS; 2022-05-23)
PROC: 0DB78ZX Excision of Stomach, Pylorus, Via Natural or Artificial Opening Endoscopic, Diagnostic (ICD-10-PCS; 2022-05-25)
PROC: 0DB68ZX Excision of Stomach, Via Natural or Artificial Opening Endoscopic, Diagnostic (ICD-10-PCS; 2022-05-25)
PROC: 0DB98ZX Excision of Duodenum, Via Natural or Artificial Opening Endoscopic, Diagnostic (ICD-10-PCS; principal; 2022-05-25 16:38)
DX: A41.9 Sepsis, unspecified organism (principal); N18.6 End stage renal disease; B37.49 Other urogenital candidiasis; I13.2 Hypertensive heart and chronic kidney disease with heart failure and with stage 5 chronic kidney disease, or end stage renal disease; I50.42 Chronic combined systolic (congestive) and diastolic (congestive) heart failure; Z68.42 Body mass index [BMI] 45.0-49.9, adult; L03.116 Cellulitis of left lower limb; L03.115 Cellulitis of right lower limb; E11.22 Type 2 diabetes mellitus with diabetic chronic kidney disease; Z79.4 Long term (current) use of insulin; E11.42 Type 2 diabetes mellitus with diabetic polyneuropathy; Z79.899 Other long term (current) drug therapy; E66.01 Morbid (severe) obesity due to excess calories; D69.6 Thrombocytopenia, unspecified; K74.60 Unspecified cirrhosis of liver; E87.6 Hypokalemia; E87.8 Other disorders of electrolyte and fluid balance, not elsewhere classified; D63.1 Anemia in chronic kidney disease; D50.0 Iron deficiency anemia secondary to blood loss (chronic); Z88.1 Allergy status to other antibiotic agents; Z88.2 Allergy status to sulfonamides; Z99.2 Dependence on renal dialysis; Z20.822 Contact with and (suspected) exposure to COVID-19
CPT/HCPCS: 36415; 43239; 51700; 71045; 80048; 80053; 81001; 82270; 82550; 82553; 82607; 82728; 82746; 82948; 83540; 83605; 83735; 83880; 84466; 84484; 85025; 85045; 85610; 85730; 86706; 86850; 86900; 86920; 87040; 87070; 87086; 87205; 87340; 88304; 88305; 88312; 88342; 89051; 90962; 93005; 93306; 94799; 96372; 99251; 99284; J1200; J1756; J1815; J1817; J1940; J2185; J2250; J3010; J3370; J3480; J7030; J7040; J7050; P9016

== ENCOUNTER → 2022-06-06 | Day surgery (SDC) | payer MEDICARE, OTHER ==
[~2022-06-06] MED LIST changes: +BALANCED SALT SOLN (OPTH) 15 ML BTL IO ONE; +CYCLOPENTOLATE HCL 1% OPTH SOLN 2ML BTL ONE; +DIFLUCAN100 MG PO; +EPINEPHRINE HCL 1:1000 1ML 1 MG/ML AMP ONE; +EPOGEN10000 UNIT SQ; +LIDOCAINE HCL-PF 4% 40 MG/1 ML 5ML AMP ONE; +MOXIFLOXACIN HCL(OPTH) 3 ML BTL ONE; +PHENYLEPHRINE HCL 2 ML DROPS ONE; +PILOCARPINE HCL(OPTH) 15 ML LIQD ONE; +POVIDONE IODINE 5% (OPTH) 30 ML BTL ONE; +SODIUM CHLORIDE 0.9% 500ML 500 ML ONE; +TOBRAMYCIN/DEXAMETHASONE(OPTH) 3.5 GM TUBE ONE; +TROPICAMIDE 1% OPTH SOLN 15 ML BTL ONE
[2022-06-06 07:17] LABS: EOSINOPHILS # (AUTO) 0.2 (0.0-0.4); EOSINOPHILS % 5.2 % (0.0-6.0); HEMATOCRIT 33.4 % (34.2-44.1); HEMOGLOBIN 10.8 g/dL (12.0-16.0); LYMPHOCYTES # (AUTO) 0.9 (1.0-3.2); LYMPHOCYTES % 22.3 % (18.0-39.1); MEAN CORPUSCULAR HEMOGLOBIN 32.3 pg (28-32); MEAN CORPUSCULAR HGB CONC 32.3 g/dL (31-35); MONOCYTES # (AUTO) 0.5 (0.2-0.8); MONOCYTES % 11.4 % (4.4-11.3); NEUTROPHILS # (AUTO) 2.5 (2.1-6.9); NEUTROPHILS % 59.9 % (38.7-80.0); PLATELET COUNT 95 x10e3/uL (140-360); RED BLOOD COUNT 3.34 x10e6/uL (3.6-5.1); RED CELL DISTRIBUTION WIDTH 16.2 % (11.7-14.4)
[2022-06-06 07:28] LABS: PROTHROMBIN TIME 14.1 seconds (11.9-14.5)
[2022-06-06 07:29] LABS: PARTIAL THROMBOPLASTIN TIME 34.1 seconds (23.8-35.5)
[2022-06-06 07:36] LABS: ALBUMIN 2.5 g/dL (3.5-5.0); ALBUMIN/GLOBULIN RATIO 0.5 (0.8-2.0); ANION GAP 19.5 mmol/L (8-16); CALCIUM 7.8 mg/dL (8.4-10.2); CREATININE, SERUM 8.66 mg/dL (0.57-1.11); POTASSIUM 3.5 mmol/L (3.5-5.1)
[2022-06-06 09:05] VITALS: BP 122/60
== END | disposition home or self-care (01) ==
LOC: OR 05:31
PROVIDERS: ATTEND Ophthalmology
DX: H25.11 Age-related nuclear cataract, right eye (principal); H25.812 Combined forms of age-related cataract, left eye; D64.9 Anemia, unspecified; R56.9 Unspecified convulsions; I10 Essential (primary) hypertension; E11.65 Type 2 diabetes mellitus with hyperglycemia; K21.9 Gastro-esophageal reflux disease without esophagitis; K74.60 Unspecified cirrhosis of liver; Z99.2 Dependence on renal dialysis; I44.7 Left bundle-branch block, unspecified; Z01.812 Encounter for preprocedural laboratory examination; Z20.822 Contact with and (suspected) exposure to COVID-19; Z79.82 Long term (current) use of aspirin; Z79.4 Long term (current) use of insulin
CPT/HCPCS: 0223U; 36415 ×2; 66984; 80053; 82948; 85025; 85610; 85730; J0171; J7040; V2632

== ENCOUNTER 2022-08-13 14:04 | Inpatient (IN) | payer MEDICARE, OTHER ==
[~2022-08-13] VITALS: Ht 165.1 cm; Wt 137.0 kg
[~2022-08-13 14:04] MED LIST changes: -BALANCED SALT SOLN (OPTH) 15 ML BTL IO ONE; -CYCLOPENTOLATE HCL 1% OPTH SOLN 2ML BTL ONE; -EPINEPHRINE HCL 1:1000 1ML 1 MG/ML AMP ONE; -LIDOCAINE HCL-PF 4% 40 MG/1 ML 5ML AMP ONE; -MOXIFLOXACIN HCL(OPTH) 3 ML BTL ONE; -PHENYLEPHRINE HCL 2 ML DROPS ONE; -PILOCARPINE HCL(OPTH) 15 ML LIQD ONE; -POVIDONE IODINE 5% (OPTH) 30 ML BTL ONE; +SODIUM BICARBONATE 8.4% INJ 50 ML SYR ONE; -SODIUM CHLORIDE 0.9% 500ML 500 ML ONE; +SUCCINYLCHOLINE CHLORIDE 20 MG/ML 10ML VIAL ONE; -TOBRAMYCIN/DEXAMETHASONE(OPTH) 3.5 GM TUBE ONE; -TROPICAMIDE 1% OPTH SOLN 15 ML BTL ONE; +VECURONIUM BROMIDE FOR INJ 20 MG VIAL ONE; +WATER STERILE 10 ML VIAL ONE
[2022-08-13 15:37] LABS: BASOPHILS # (AUTO) 0.1 (0.0-0.1); EOSINOPHILS # (AUTO) 0.2 (0.0-0.4); EOSINOPHILS % 4.3 % (0.0-6.0); HEMATOCRIT 30.9 % (34.2-44.1); HEMOGLOBIN 9.9 g/dL (12.0-16.0); LYMPHOCYTES # (AUTO) 0.9 (1.0-3.2); LYMPHOCYTES % 16.6 % (18.0-39.1); MEAN CORPUSCULAR HEMOGLOBIN 32.6 pg (28-32); MEAN CORPUSCULAR VOLUME 101.6 fL (81-99); MONOCYTES # (AUTO) 0.5 (0.2-0.8); MONOCYTES % 9.6 % (4.4-11.3); NEUTROPHILS # (AUTO) 3.5 (2.1-6.9); NEUTROPHILS % 67.5 % (38.7-80.0); PLATELET COUNT 101 x10e3/uL (140-360); RED BLOOD COUNT 3.04 x10e6/uL (3.6-5.1); RED CELL DISTRIBUTION WIDTH 15.5 % (11.7-14.4)
[2022-08-13 15:58] LABS: INR 0.98; MAGNESIUM 2.3 MG/DL (1.3-2.1); PROTHROMBIN TIME 13.9 seconds (11.9-14.5)
[2022-08-13 15:59] LABS: PARTIAL THROMBOPLASTIN TIME 35.2 seconds (23.8-35.5)
[2022-08-13 16:01] LABS: ALBUMIN 2.4 g/dL (3.5-5.0); ALBUMIN/GLOBULIN RATIO 0.5 (0.8-2.0); CALCIUM 8.4 mg/dL (8.4-10.2); CREATININE, SERUM 7.83 mg/dL (0.57-1.11)
[2022-08-13] MEDS ORDERED: LACTULOSE SYRUP 20 GM/30 ML UDC PO ONE (16:30)
[2022-08-13 20:00] VITALS: BP 118/62
[2022-08-13] MEDS: LACTULOSE SYRUP 20 GM/30 ML UDC PO SCH ×2 (20:30→23:14)
[2022-08-13 21:40] VITALS: BP 118/62
[2022-08-13] MEDS ORDERED: XIFAXAN550 MG PO (21:48)
[2022-08-14] VITALS (7 sets, daily range): BP systolic 98–135; BP diastolic 52–80
[2022-08-14 01:07] LABS: CREATINE KINASE MB 2.3 ng/mL (0-5.0)
[2022-08-14] MEDS: LACTULOSE SYRUP 20 GM/30 ML UDC PO SCH ×3 (07:11→16:35)
[2022-08-14 07:19] LABS: BASOPHILS % 0.5 % (0.0-1.0); EOSINOPHILS # (AUTO) 0.1 (0.0-0.4); EOSINOPHILS % 1.7 % (0.0-6.0); HEMATOCRIT 27.2 % (34.2-44.1); HEMOGLOBIN 9.4 g/dL (12.0-16.0); LYMPHOCYTES # (AUTO) 0.6 (1.0-3.2); LYMPHOCYTES % 9.3 % (18.0-39.1); MEAN CORPUSCULAR HEMOGLOBIN 33.6 pg (28-32); MEAN CORPUSCULAR HGB CONC 34.6 g/dL (31-35); MEAN CORPUSCULAR VOLUME 97.1 fL (81-99); MONOCYTES # (AUTO) 0.5 (0.2-0.8); MONOCYTES % 8.7 % (4.4-11.3); NEUTROPHILS # (AUTO) 4.7 (2.1-6.9); NEUTROPHILS % 79.1 % (38.7-80.0); PLATELET COUNT 83 x10e3/uL (140-360); RED CELL DISTRIBUTION WIDTH 15.9 % (11.7-14.4)
[2022-08-14] MEDS ORDERED: EPOETIN ALFA-EPBX 10,000 UNIT/ML VIAL SC SCH (07:30)
[2022-08-14 07:53] LABS: ALBUMIN 2.2 g/dL (3.5-5.0); ALBUMIN/GLOBULIN RATIO 0.5 (0.8-2.0); ANION GAP 18.6 mmol/L (8-16); CALCIUM 8.1 mg/dL (8.4-10.2); CREATININE, SERUM 7.75 mg/dL (0.57-1.11)
[2022-08-14 08:06] LABS: POTASSIUM 2.6 mmol/L (3.5-5.1)
[2022-08-14] MEDS ORDERED: POTASSIUM CHLORIDE 20 MEQ TAB CR PO ONE (09:30)
[2022-08-14] MEDS: POTASSIUM CHLORIDE 10MEQ EA PO SCH (10:00)
[2022-08-14] MEDS: ONDANSETRON HCL INJ 2MG/ML 2ML 2 MG/ML VIAL IV PRN ×2 (12:43→19:11)
[2022-08-14] MEDS ORDERED: FUROSEMIDE40 MG PO (12:59)
[2022-08-14] MEDS ORDERED: CLINDAMYCIN HC150 MG PO (12:59)
[2022-08-14] MEDS ORDERED: CALCITRIOL0.25 MCG PO (12:59)
[2022-08-14 14:19] LABS: CREATINE KINASE MB 1.9 ng/mL (0-5.0)
[2022-08-14] MEDS ORDERED: DEXTROSE 50% SYRINGE 50 ML IV PRN (15:00)
[2022-08-14] MEDS: INSULIN LISPRO 100 UNIT/1 ML 3ML VIAL SQ SCH ×2 (16:44→21:00)
[2022-08-14] MEDS: ACETAMINOPHEN 325 MG TAB PO PRN (19:11)
[2022-08-15] VITALS (8 sets, daily range): BP systolic 115–133; BP diastolic 59–104
[2022-08-15] MEDS: LACTULOSE SYRUP 20 GM/30 ML UDC PO SCH ×4 (01:18→17:25)
[2022-08-15] MEDS: ACETAMINOPHEN 325 MG TAB PO PRN ×2 (02:24→20:42)
[2022-08-15] MEDS: ONDANSETRON HCL INJ 2MG/ML 2ML 2 MG/ML VIAL IV PRN (02:24)
[2022-08-15 05:40] LABS: BASOPHILS % 0.2 % (0.0-1.0); EOSINOPHILS % 0.2 % (0.0-6.0); HEMOGLOBIN 10.7 g/dL (12.0-16.0); LYMPHOCYTES # (AUTO) 0.7 (1.0-3.2); LYMPHOCYTES % 8.1 % (18.0-39.1); MEAN CORPUSCULAR HEMOGLOBIN 31.9 pg (28-32); MEAN CORPUSCULAR HGB CONC 32.4 g/dL (31-35); MEAN CORPUSCULAR VOLUME 98.5 fL (81-99); MONOCYTES # (AUTO) 0.8 (0.2-0.8); MONOCYTES % 9.4 % (4.4-11.3); NEUTROPHILS # (AUTO) 7.2 (2.1-6.9); NEUTROPHILS % 81.6 % (38.7-80.0); PLATELET COUNT 121 x10e3/uL (140-360); RED BLOOD COUNT 3.35 x10e6/uL (3.6-5.1); RED CELL DISTRIBUTION WIDTH 15.5 % (11.7-14.4)
[2022-08-15 06:22] LABS: ALBUMIN 2.2 g/dL (3.5-5.0); ALBUMIN/GLOBULIN RATIO 0.5 (0.8-2.0); ANION GAP 19.9 mmol/L (8-16); CALCIUM 8.4 mg/dL (8.4-10.2); CREATININE, SERUM 7.99 mg/dL (0.57-1.11)
[2022-08-15 06:26] LABS: POTASSIUM 2.9 mmol/L (3.5-5.1)
[2022-08-15] MEDS ORDERED: PANTOPRAZOLE SOD 40 MG TABEC PO SCH ×2 (07:30)
[2022-08-15] MEDS: CALCITRIOL 0.25 MCG CAP PO SCH (08:42)
[2022-08-15] MEDS: CALCIUM ACETATE 667 MG GELCAP PO SCH ×3 (08:42→17:25)
[2022-08-15] MEDS: POTASSIUM CHLORIDE 10MEQ EA PO SCH (08:43)
[2022-08-15] MEDS: RIFAXIMIN 550 MG TABLET PO SCH ×2 (08:43→17:25)
[2022-08-15] MEDS: INSULIN LISPRO 100 UNIT/1 ML 3ML VIAL SQ SCH ×4 (08:47→20:46)
[2022-08-15] MEDS ORDERED: POTASSIUM CHLORIDE 20 MEQ TAB CR PO ONE (10:15)
[2022-08-15] MEDS ORDERED: PROMETHAZINE 12.5MG/ NACL 0.9% 12.5 MG/50 ML BAG IV PRN (10:15)
[2022-08-15 18:26] LABS: BODY FLUID APPEARANCE CLEAR; BODY FLUID COLOR YELLOW; BODY FLUID TYPE PERITONEAL
[2022-08-15 18:42] LABS: RBC,BODY FLUID < 2000 cells/uL; WBC,BODY FLUID 338 cells/uL
[2022-08-15] MEDS: METOPROLOL TARTRATE INJ 1 MG/ML VIAL IV PRN (19:24)
[2022-08-15 19:37] LABS: LYMPHOCYTES,BODY FLUID 3 %; MONO/MACROPHG,BODY FLUID 53 %; NEUTROPHILS,BODY FLUID 44 %
[2022-08-16] VITALS (63 sets, daily range): BP systolic 67–169; BP diastolic 25–96
[2022-08-16] MEDS: LACTULOSE SYRUP 20 GM/30 ML UDC PO SCH ×2 (00:24→06:00)
[2022-08-16] MEDS: METOPROLOL TARTRATE INJ 1 MG/ML VIAL IV PRN ×3 (00:44→14:25)
[2022-08-16] MEDS ORDERED: SODIUM CHLORIDE 0.9% 100 ML ONE (00:47)
[2022-08-16] MEDS ORDERED: ONDANSETRON HCL INJ 2MG/ML 2ML 2 MG/ML VIAL IV PRN (01:15)
[2022-08-16 05:51] LABS: BASOPHILS % 0.4 % (0.0-1.0); EOSINOPHILS # (AUTO) 0.1 (0.0-0.4); EOSINOPHILS % 0.7 % (0.0-6.0); HEMATOCRIT 33.1 % (34.2-44.1); HEMOGLOBIN 11.2 g/dL (12.0-16.0); LYMPHOCYTES % 9.8 % (18.0-39.1); MEAN CORPUSCULAR HEMOGLOBIN 32.4 pg (28-32); MEAN CORPUSCULAR HGB CONC 33.8 g/dL (31-35); MEAN CORPUSCULAR VOLUME 95.7 fL (81-99); MONOCYTES # (AUTO) 1.8 (0.2-0.8); MONOCYTES % 17.5 % (4.4-11.3); NEUTROPHILS # (AUTO) 7.5 (2.1-6.9); NEUTROPHILS % 70.9 % (38.7-80.0); PLATELET COUNT 172 x10e3/uL (140-360); RED BLOOD COUNT 3.46 x10e6/uL (3.6-5.1); RED CELL DISTRIBUTION WIDTH 16.9 % (11.7-14.4)
[2022-08-16 06:13] LABS: ALBUMIN 2.2 g/dL (3.5-5.0); ALBUMIN/GLOBULIN RATIO 0.5 (0.8-2.0); ANION GAP 25.5 mmol/L (8-16); CALCIUM 9.2 mg/dL (8.4-10.2); CREATININE, SERUM 8.28 mg/dL (0.57-1.11); POTASSIUM 3.5 mmol/L (3.5-5.1)
[2022-08-16 06:38] LABS: CREATINE KINASE MB 4.2 ng/mL (0-5.0)
[2022-08-16] MEDS: METRONIDAZOLE 500MG/NS 100ML 100 ML IV SCH ×2 (06:51→12:16)
[2022-08-16] MEDS: INSULIN LISPRO 100 UNIT/1 ML 3ML VIAL SQ SCH ×4 (07:30→21:21)
[2022-08-16] MEDS: METOCLOPRAMIDE HCL 10 MG/2ML VIAL IV SCH ×4 (07:30→21:15)
[2022-08-16] MEDS: CALCIUM ACETATE 667 MG GELCAP PO SCH ×3 (08:00→17:19)
[2022-08-16] MEDS ORDERED: HEPARIN 25,000 UNIT 1,000 UNIT in DEXTROSE 5% 250ML 250 ML IV SCH (08:30)
[2022-08-16] MEDS ORDERED: AMIODARONE HCL 100 ML IV ONE (08:40)
[2022-08-16] MEDS ORDERED: AMIODARONE 900MG 500 ML IV SCH (08:50)
[2022-08-16] MEDS: POTASSIUM CHLORIDE 10MEQ EA PO SCH (09:00)
[2022-08-16] MEDS ORDERED: NOREPINEPHRINE 8 MG/D5W 250 ML 250 ML IV SCH (09:00)
[2022-08-16] MEDS ORDERED: SODIUM CHLORIDE 0.9% 1000ML 1,000 ML ONE (09:01)
[2022-08-16 09:02] LABS: ABG HCO3 19 mmol/L (22-26); ABG PCO2 25 mmHg (35-45); ABG PH 7.49 (7.35-7.45); ABG PO2 84 mmHg (80-105); ABG TCO2 20
[2022-08-16 09:37] LABS: ABG HCO3 19 mmol/L (22-26); ABG PCO2 25 mmHg (35-45); ABG PH 7.49 (7.35-7.45); ABG PO2 84 mmHg (80-105); ABG TCO2 20
[2022-08-16 09:39] LABS: CHOL/HDL RATIO 4.3 (3.0-3.6)
[2022-08-16] MEDS ORDERED: PHENYLEPHRINE 10MG/ML VIAL 40 MG in DEXTROSE 5% 250ML 250 ML IV SCH (09:45)
[2022-08-16] MEDS ORDERED: SODIUM CHLORIDE 0.9% 1000ML 1,000 ML IV ONE (09:45)
[2022-08-16 09:59] LABS: THYROID STIMULATING HORMONE 1.467 uIU/mL (0.350-4.940)
[2022-08-16] MEDS: RIFAXIMIN 550 MG TABLET PO SCH ×2 (10:18→17:19)
[2022-08-16] MEDS: CALCITRIOL 0.25 MCG CAP PO SCH (10:18)
[2022-08-16] MEDS: HEPARIN 25,000 UNIT 1,000 UNIT in DEXTROSE 5% 250ML 250 ML IV SCH (10:23)
[2022-08-16] MEDS: LACTULOSE SYRUP 20 GM/30 ML UDC RC SCH ×3 (12:02→23:54)
[2022-08-16] MEDS ORDERED: ALBUMIN 25% 12.5GM 0.25 GM/ML BTL IV PRN (16:45)
[2022-08-16] MEDS: VASOPRESSIN 60 UNIT in DEXTROSE 5% 50ML 57 ML IV SCH (17:21)
[2022-08-16] MEDS ORDERED: NOREPINEPHRINE 8 MG/D5W 250 ML 250 ML ONE (17:46)
[2022-08-16] MEDS: NOREPINEPHRINE 8 MG/D5W 250 ML 250 ML IV SCH ×2 (17:54→21:54)
[2022-08-17] VITALS (25 sets, daily range): BP systolic 83–170; BP diastolic 22–101
[2022-08-17] MEDS: METOPROLOL TARTRATE INJ 1 MG/ML VIAL IV PRN (04:22)
[2022-08-17 05:07] LABS: BASOPHILS # (AUTO) 0.1 (0.0-0.1); BASOPHILS % 0.3 % (0.0-1.0); EOSINOPHILS % 0.1 % (0.0-6.0); HEMATOCRIT 33.5 % (34.2-44.1); HEMOGLOBIN 10.5 g/dL (12.0-16.0); LYMPHOCYTES # (AUTO) 1.5 (1.0-3.2); MEAN CORPUSCULAR HEMOGLOBIN 32.7 pg (28-32); MEAN CORPUSCULAR HGB CONC 31.3 g/dL (31-35); MEAN CORPUSCULAR VOLUME 104.4 fL (81-99); MONOCYTES # (AUTO) 2.5 (0.2-0.8); NEUTROPHILS # (AUTO) 16.9 (2.1-6.9); NEUTROPHILS % 79.4 % (38.7-80.0); PLATELET COUNT 168 x10e3/uL (140-360); RED BLOOD COUNT 3.21 x10e6/uL (3.6-5.1); RED CELL DISTRIBUTION WIDTH 17.2 % (11.7-14.4)
[2022-08-17] MEDS: VASOPRESSIN 60 UNIT in DEXTROSE 5% 50ML 57 ML IV SCH (05:08)
[2022-08-17] MEDS: LACTULOSE SYRUP 20 GM/30 ML UDC RC SCH ×2 (05:43→12:12)
[2022-08-17 06:04] LABS: ALBUMIN 2.8 g/dL (3.5-5.0); ALBUMIN/GLOBULIN RATIO 0.8 (0.8-2.0); ANION GAP 41.1 mmol/L (8-16); CALCIUM 9.5 mg/dL (8.4-10.2); CREATININE, SERUM 6.14 mg/dL (0.57-1.11); POTASSIUM 4.1 mmol/L (3.5-5.1)
[2022-08-17] MEDS: INSULIN LISPRO 100 UNIT/1 ML 3ML VIAL SQ SCH ×2 (07:40→11:30)
[2022-08-17] MEDS: METOCLOPRAMIDE HCL 10 MG/2ML VIAL IV SCH ×2 (07:41→12:18)
[2022-08-17] MEDS: CALCIUM ACETATE 667 MG GELCAP PO SCH ×2 (07:42→12:13)
[2022-08-17 08:13] LABS: BAND NEUTROPHILS % (MANUAL) 8 %; EOSINOPHILS % (MANUAL) 1 % (0-7); HYPOCHROMASIA SLIGHT; LYMPHOCYTES % (MANUAL) 10 % (19-48); MONOCYTES % (MANUAL) 9 % (3.4-9.0); NEUTROPHILS % (MANUAL) 72 % (40-74); NUCLEATED RED BLOOD CELLS 2; PLATELET ESTIMATE ADEQUATE; PLATELET MORPHOLOGY COMMENT NORMAL; RBC MORPHOLOGY COMMENT NORMAL
[2022-08-17 08:14] LABS: ANISOCYTOSIS SLIGHT
[2022-08-17] MEDS ORDERED: ALBUMIN 25% 25GM 100ML 0.25 GM/ML BTL IV ONE ×2 (08:45→09:30)
[2022-08-17] MEDS ORDERED: SODIUM BICARBONATE 8.4% INJ 50 ML SYR IV ONE ×2 (08:45)
[2022-08-17] MEDS: HEPARIN 25,000 UNIT 1,000 UNIT in DEXTROSE 5% 250ML 250 ML IV SCH (08:45)
[2022-08-17] MEDS: CALCITRIOL 0.25 MCG CAP PO SCH (08:51)
[2022-08-17] MEDS: RIFAXIMIN 550 MG TABLET PO SCH (08:51)
[2022-08-17] MEDS: NOREPINEPHRINE 8 MG/D5W 250 ML 250 ML IV SCH (08:52)
[2022-08-17] MEDS ORDERED: KCL 20 MEQ PACKET/ ORAL SOLN NG SCH (09:00)
[2022-08-17] MEDS ORDERED: ALBUMIN 25% 25GM 100ML 100 ML IV ONE (09:00)
[2022-08-17] MEDS ORDERED: CEFTRIAXONE 2 GM in SODIUM CHLORIDE 0.9% 100 ML IV SCH (09:00)
[2022-08-17] MEDS ORDERED: SODIUM BICARBONATE 8.4% 150 ML in DEXTROSE 5% 1,000 ML IV SCH (09:15)
[2022-08-17] MEDS ORDERED: Vancomycin IV 1 GM in SODIUM CHLORIDE 0.9% 250ML 250 ML IV ONE (09:15)
[2022-08-17] MEDS ORDERED: SODIUM CHLORIDE 0.9% 1000ML 1,000 ML ONE (09:24)
[2022-08-17] MEDS ORDERED: SODIUM CHLORIDE 0.9% 1000ML 2,000 ML IV PRN (09:45)
[2022-08-17] MEDS ORDERED: INSULIN REGULAR, HUMAN 3ML VL 100 UNIT in SODIUM CHLORIDE 0.9% 100 ML IV SCH ×2 (10:00)
[2022-08-17] MEDS ORDERED: DEXMEDETOMIDINE 400MCG/NS100ML 100 ML IV PRN (10:30)
[2022-08-17] MEDS ORDERED: FENTANYL 2000MCG/NS 250 250 ML IV PRN (10:30)
[2022-08-17] MEDS ORDERED: SODIUM BICARBONATE 8.4% INJ 50 ML SYR IV STA (11:42)
[2022-08-17] MEDS ORDERED: VANCOMYCIN 250MG/5ML ORAL SOLN PO SCH (12:00)
[2022-08-17 12:02] LABS: ABG HCO3 10 mmol/L (22-26); ABG PCO2 27 mmHg (35-45); ABG PH 7.19 (7.35-7.45); ABG PO2 137 mmHg (80-105); ABG TCO2 11
[2022-08-17] MEDS ORDERED: METRONIDAZOLE 500MG/NS 100ML 100 ML IV SCH (14:00)
== END 2022-08-17 14:00 | disposition short-term general hospital (02) | DRG 441 ==
LOC: ER 14:15 → ERHOLD 17:39 → MED/SURG2 20:35 → ICU 08-16 07:42
PROVIDERS: ADMIT Internal Medicine; ATTEND Internal Medicine
PROC: 3E1M39Z Irrigation of Peritoneal Cavity using Dialysate, Percutaneous Approach (ICD-10-PCS; 2022-08-13)
PROC: 02HV33Z Insertion of Infusion Device into Superior Vena Cava, Percutaneous Approach (ICD-10-PCS; principal; 2022-08-16)
PROC: 3E043XZ Introduction of Vasopressor into Central Vein, Percutaneous Approach (ICD-10-PCS; 2022-08-16)
PROC: 5A09357 Assistance with Respiratory Ventilation, Less than 24 Consecutive Hours, Continuous Positive Airway Pressure (ICD-10-PCS; 2022-08-16)
PROC: 5A1935Z Respiratory Ventilation, Less than 24 Consecutive Hours (ICD-10-PCS; 2022-08-17)
PROC: 0BH17EZ Insertion of Endotracheal Airway into Trachea, Via Natural or Artificial Opening (ICD-10-PCS; 2022-08-17)
PROC: 03HY32Z Insertion of Monitoring Device into Upper Artery, Percutaneous Approach (ICD-10-PCS; 2022-08-17)
PROC: 4A133B1 Monitoring of Arterial Pressure, Peripheral, Percutaneous Approach (ICD-10-PCS; 2022-08-17)
PROC: 4A133J1 Monitoring of Arterial Pulse, Peripheral, Percutaneous Approach (ICD-10-PCS; 2022-08-17)
DX: K76.82 Hepatic encephalopathy (principal); A41.9 Sepsis, unspecified organism; N18.6 End stage renal disease; J96.01 Acute respiratory failure with hypoxia; R65.21 Severe sepsis with septic shock; I13.2 Hypertensive heart and chronic kidney disease with heart failure and with stage 5 chronic kidney disease, or end stage renal disease; Z68.43 Body mass index [BMI] 50.0-59.9, adult; E87.1 Hypo-osmolality and hyponatremia; I50.42 Chronic combined systolic (congestive) and diastolic (congestive) heart failure; E87.20 Acidosis, unspecified; K74.60 Unspecified cirrhosis of liver; E11.22 Type 2 diabetes mellitus with diabetic chronic kidney disease; E11.42 Type 2 diabetes mellitus with diabetic polyneuropathy; E11.43 Type 2 diabetes mellitus with diabetic autonomic (poly)neuropathy; E11.65 Type 2 diabetes mellitus with hyperglycemia; E66.01 Morbid (severe) obesity due to excess calories; K21.9 Gastro-esophageal reflux disease without esophagitis; E87.6 Hypokalemia; I48.91 Unspecified atrial fibrillation; K76.89 Other specified diseases of liver; E78.5 Hyperlipidemia, unspecified; R19.7 Diarrhea, unspecified; K31.84 Gastroparesis; Z80.8 Family history of malignant neoplasm of other organs or systems; Z90.49 Acquired absence of other specified parts of digestive tract; Z99.2 Dependence on renal dialysis; Z91.15 Patient's noncompliance with renal dialysis; Z88.2 Allergy status to sulfonamides; Z88.8 Allergy status to other drugs, medicaments and biological substances; Z79.4 Long term (current) use of insulin
CPT/HCPCS: 0223U; 31500; 36415; 36600; 70450; 71045; 74018; 74019; 80053; 80061; 82140; 82550; 82553; 82805; 82948; 83036; 83605; 83735; 83880; 84100; 84157; 84443; 84484; 85025; 85610; 85730; 86704; 86706; 86707; 87040; 87070; 87086; 87205; 89051; 90962; 93005; 94002; 94003; 94660; 94799; 99285; J0330; J1817; J2185; J2370; J2405; J2550; J2765; J3370; J7030; J7050; J7070; J7799; P9047